=== PATIENT | male | born 1945 | race African-American/Black ===

== ENCOUNTER 2018-04-04 03:21 | Inpatient (IN) | payer OTHER ==
[2018-04-04 03:47] VITALS: BMI 27.4
--- NOTE | 2018-04-04 06:07 | PDOC ---
History of Present Illness - General Chief Complaint: Rectal Bleed Stated Complaint: RECTAL BLEED Time Seen by Provider: 04/04/18 05:34 - History of Present Illness Initial Comments: 04/04/18 07:26 The patient is a 72 year old male with a significant PMH of HTN and defibrillator who presents to the emergency department with rectal bleeding today. The patient states he was having a bowel movement this morning when he noticed gushing blood per rectum and the patient's stool was red and loose. The patient immediately went to shower after noticing the rectal bleeding. The patient was dizzy at the time but states this has since resolved. The patient also reports the ambulance told him his blood pressure was low en route to the ER. The patient endorses he has had recurrent episodes of minimal rectal bleeding in the past. The patient denies abdominal pain, chest pain, shortness of breath, headache and dizziness. Denies fever, chills, nausea, vomit, diarrhea and constipation. Denies dysuria, frequency, urgency and hematuria. Allergies: NKA Social history: No reported alcohol, drug, or cigarette use. PCP: Dr. Elizabeth Past History - Past Medical History Allergies/Adverse Reactions: Allergies Allergy/AdvReac Type Severity Reaction Status Date / Time No Known Allergies Allergy Verified 04/04/18 03:46 Home Medications: Ambulatory Orders Amlodipine Besylate 10 mg PO DAILY 04/04/18 Digoxin 125 mcg PO DAILY 04/04/18 Folic Acid 1 mg PO DAILY 04/04/18 Losartan Potassium 100 mg PO DAILY 04/04/18 Metoprolol Succinate [Toprol Xl -] 50 mg PO DAILY 04/04/18 Simvastatin 20 mg PO DAILY 04/04/18 Spironolactone 25 mg PO DAILY 04/04/18 HTN: Yes Hypercholesterolemia: Yes Thyroid Disease: No - Surgical History Cardiac Surgery: Yes (pacemaker) - Immunization History Immunization Up to Date: Yes - Suicide/Smoking/Psychosocial Hx Smoking History: Never smoked Have you smoked in the past 12 months: No Number of Cigarettes Smoked Daily: 0 Cigars Per Day: 0 Information on smoking cessation initiated: No Hx Alcohol Use: No Drug/Substance Use Hx: No *Physical Exam - Vital Signs Last Vital Signs Temp Pulse Resp BP Pulse Ox 98.1 F 92 H 16 110/60 98 04/04/18 03:44 04/04/18 03:44 04/04/18 03:44 04/04/18 03:44 04/04/18 03:44 - Physical Exam Comments: 04/04/18 07:27 NAD, well appearing EOMI, STARR MMM RRR CTABL soft NTND gait WNL neuro grossly intact A&O x 3 ED Treatment Course - LABORATORY CBC & Chemistry Diagram: 04/04/18 06:45 04/04/18 06:45 Medical Decision Making - Medical Decision Making 04/04/18 07:27 72yoM w/ hx of occasional BRBPR presents w/ a "gush" of BRBPR this morning, more than his typical. - labs - trend H/H - dispo per results. 04/04/18 07:29 Laboratory Tests 04/04/18 06:45 Hgb 8.9 L D Hct 26.8 L D prior Hgb 13 in 2014. Admit. *DC/Admit/Observation/Transfer - Discharge Dispostion Condition at time of disposition: Fair - Referrals Referrals: Thomas Elizabeth [Primary Care Provider] - - Patient Instructions - Post Discharge Activity
[2018-04-04 07:20] LABS: BASO % 0.5 % (0-2.0); EOS % 0.8 % (0-4.5); HEMATOCRIT 26.8 % (35.4-49); HEMOGLOBIN 8.9 GM/dL (11.7-16.9); LYMPH % 34.7 % (8-40); MCH 30.4 pg (25.7-33.7); MCHC 33.3 g/dl (32.0-35.9); MEAN CELL VOLUME 91.3 fl (80-96); MEAN PLT VOLUME 7.6 fl (7.5-11.1); MONO % 9.3 % (3.8-10.2); NEUT % 54.7 % (42.8-82.8); PLATELET COUNT 321 K/MM3 (134-434); RBC 2.94 M/mm3 (4.00-5.60); WHITE BLOOD COUNT 8.7 K/mm3 (4.0-10.0)
[2018-04-04 07:31] LABS: INR 1.05 (0.82-1.09); PROTHROMBIN TIME (PATIENT) 11.9 SEC (9.7-13.0)
[2018-04-04 07:34] LABS: ACTIVATED PTT 27.6 SECONDS (26.9-34.4)
[2018-04-04 07:41] LABS: ALK PHOS 61 U/L (45-117); ANION GAP 7 (8-16); BILIRUBIN,TOTAL 0.2 mg/dL (0.2-1.0); BLOOD UREA NITROGEN 27 mg/dL (7-18); CHLORIDE 111 mmol/L (98-107); CO2 21 mmol/L (21-32); CREATININE 1.5 mg/dL (0.7-1.3); GLUCOSE,RANDOM 105 mg/dL (74-106); POTASSIUM 3.9 mmol/L (3.5-5.1); SGOT/AST 42 U/L (15-37); SGPT/ALT 46 U/L (12-78); SODIUM 139 mmol/L (136-145); TOT PROT 8.7 g/dl (6.4-8.2)
--- NOTE | 2018-04-04 07:54 | PDOC ---
*Physical Exam - Vital Signs Last Vital Signs Temp Pulse Resp BP Pulse Ox 98.0 F 81 18 99/55 97 04/04/18 07:30 04/04/18 07:30 04/04/18 07:30 04/04/18 07:30 04/04/18 07:30 - Physical Exam Comments: 04/04/18 09:27 The patient is a 72 year old male with a significant PMH of HTN and defibrillator who presents to the emergency department with rectal bleeding today. GENERAL: Awake, alert, and fully oriented, in no acute distress HEAD: No signs of trauma EYES: PERRLA, EOMI, sclera anicteric, conjunctiva clear ENT: Auricles normal inspection, hearing grossly normal, nares patent, oropharynx clear without exudates. Moist mucosa NECK: Normal ROM, supple, no lymphadenopathy, JVD, or masses LUNGS: Breath sounds equal, clear to auscultation bilaterally. No wheezes, and no crackles HEART: Regular rate and rhythm, normal S1 and S2, no murmurs, rubs or gallops ABDOMEN: Soft, nontender, normoactive bowel sounds. No guarding, no rebound. No masses EXTREMITIES: Normal range of motion, no edema. No clubbing or cyanosis. No cords, erythema, or tenderness NEUROLOGICAL: Cranial nerves II through XII grossly intact. Normal speech, normal gait SKIN: Warm, Dry, normal turgor, no rashes or lesions noted. <Ramakrishna Reis - Last Filed: 04/04/18 09:27> - Vital Signs Last Vital Signs Temp Pulse Resp BP Pulse Ox 98.1 F 92 H 16 110/60 98 04/04/18 03:44 04/04/18 03:44 04/04/18 03:44 04/04/18 03:44 04/04/18 03:44 <Catherine Payton - Last Filed: 04/04/18 11:39> Heart Score/ECG Review - ECG Intrepretation Comment:: 04/04/18 09:27 sinus at 78, nl axis, nl interval, pvc, no acute st/t wave findings <Catherine Payton - Last Filed: 04/04/18 11:39> ED Treatment Course - LABORATORY CBC & Chemistry Diagram: 04/04/18 06:45 04/04/18 06:45 - ADDITIONAL ORDERS Additional order review: Laboratory Results 04/04/18 04/04/18 04/04/18 08:54 08:18 06:45 PT with INR INR PTT (Actin FS) Sodium 139 Potassium 3.9 Chloride 111 H Carbon Dioxide 21 D Anion Gap 7 L BUN 27 H D Creatinine 1.5 H D Creat Clearance w eGFR 46.00 Random Glucose 105 Calcium 8.0 L Total Bilirubin 0.2 D AST 42 H ALT 46 Alkaline Phosphatase 61 Troponin I 0.02 D Total Protein 8.7 H Albumin 2.0 L D Stool Occult Blood Positive 04/04/18 06:45 PT with INR 11.90 INR 1.05 PTT (Actin FS) 27.6 D Sodium Potassium Chloride Carbon Dioxide Anion Gap BUN Creatinine Creat Clearance w eGFR Random Glucose Calcium Total Bilirubin AST ALT Alkaline Phosphatase Troponin I Total Protein Albumin Stool Occult Blood 04/04/18 06:45 RBC 2.94 L D MCV 91.3 MCHC 33.3 RDW 14.0 MPV 7.6 D Neutrophils % 54.7 Lymphocytes % 34.7 D Monocytes % 9.3 Eosinophils % 0.8 Basophils % 0.5 <Ramakrishna Reis - Last Filed: 04/04/18 09:27> - LABORATORY CBC & Chemistry Diagram: 04/04/18 11:00 04/04/18 06:45 - ADDITIONAL ORDERS Additional order review: Laboratory Results 04/04/18 06:45 PT with INR 11.90 INR 1.05 PTT (Actin FS) 27.6 D 04/04/18 06:45 RBC 2.94 L D MCV 91.3 MCHC 33.3 RDW 14.0 MPV 7.6 D Neutrophils % 54.7 Lymphocytes % 34.7 D Monocytes % 9.3 Eosinophils % 0.8 Basophils % 0.5 <Catherine aPyton - Last Filed: 04/04/18 11:39> Medical Decision Making - Critical Care Time Total Critical Care Time (minutes): 30 Critical Care Statement: The care of this patient involved high complexity decision making to prevent further life threatening deterioration of the patient 's condition and/or to evaluate & treat vital organ system(s) failure or risk of failure. - Medical Decision Making 04/04/18 09:22 a/p: 72yo male with rectal bleeding today -pt signed out from the prior attending pending labs -pt hgb 8.9 down from 13 -7lb wt loss -night sweats -no colonoscopy in the past -concern for cause of rectal bleeding will obtain ct abd/pelvis 04/04/18 11:[address] Singer diverticular disease seen on ct renal mass on ct will place consult to surgery for mesenteric lymph nodes/GI bleed 04/04/18 11:[address] Singer who accepts pt to tele repeat hemoglobin 8.4 <Catherine Payton - Last Filed: 04/04/18 11:39> *DC/Admit/Observation/Transfer - Attestations Scribe Attestion: 04/04/18 09:28 Documentation prepared by Ramakrishna Reis, acting as medical dosimetrist for Catherine Payton DO. <Ramakrishna Reis - Last Filed: 04/04/18 09:27> - Discharge Dispostion Decision to Admit order: Yes - Attestations Physician Attestion: 04/04/18 11:37 I, Dr. Catherine Payton DO, attest that this document has been prepared under my direction and personally reviewed by me in its entirety. I further attest, that it accurately reflects all work, treatment, procedures and medical decision -making performed by me. <Catherine Payton - Last Filed: 04/04/18 11:39> Diagnosis at time of Disposition: Lower GI bleeding - Discharge Dispostion Condition at time of disposition: Fair - Referrals Referrals: Thomas Elizabeth [Primary Care Provider] - - Patient Instructions - Post Discharge Activity
[2018-04-04] MEDS ORDERED: SODIUM CHLORIDE 0.9% 1000 ML INFUS.BAG IV ONE (11:05)
[2018-04-04 11:13] LABS: BASO % 0.6 % (0-2.0); HEMATOCRIT 25.4 % (35.4-49); HEMOGLOBIN 8.4 GM/dL (11.7-16.9); LYMPH % 40.6 % (8-40); MCH 30.2 pg (25.7-33.7); MCHC 32.9 g/dl (32.0-35.9); MEAN CELL VOLUME 91.7 fl (80-96); MEAN PLT VOLUME 7.3 fl (7.5-11.1); MONO % 11.3 % (3.8-10.2); NEUT % 46.5 % (42.8-82.8); PLATELET COUNT 295 K/MM3 (134-434); RBC 2.77 M/mm3 (4.00-5.60); RDW 14.1 % (11.9-15.9); WHITE BLOOD COUNT 7.3 K/mm3 (4.0-10.0)
--- NOTE | 2018-04-04 11:30 | HP ---
CHIEF COMPLAINT: rectal bleed x1 day PCP: Dr Elizabeth Hse Specialist Dr Irby ([phone]) HISTORY OF PRESENT ILLNESS: Pt is a 72 Yo M with PMHx of HTN, HLD, Non Ischemic cardiomyopathy with CHF, s/ p defibrillator implant now presenting with rectal bleed. Pt mely about 1am overnight when he had to jones to move his bowels. He did not make it in time because he had loose stools, so ran into the shower and noted loose brown stools mixed with up to half a cup of blood. There was no associated abdominal or rectal pain. Afterwards, the pt felt dizzy, but did not syncopize. He sat down initially and rested, then went back to lay down until he felt better enough to go back to clean up the shower. Two days prior to this episode of rectal bleed, pt had noticed loose stools of up to twice a day mixed with blood in the [place]. He also had subjective fevers for which he took NSAIDS, starting 2 days early. 2 weeks prior, he had chills but did not document an objective fever. There was no associated bleeding from any other site, no nausea or vomiting, no jaundice, no hx of known liver disease, no hx of alcohol ingestion. No hematuria or dysuria. No change in diet. Is usually able to move his bowels, but had an episode of constipation about 2 weeks ago that resolved spontaneously. Pt has never had colonoscopy done, because of fear. Hx of cancer in the mother that is unclear. No recent travel or sick contacts Pt had defibrillator implanted in 02/2015 at [facility] and is not currently on antiplatelets. ER course was notable for: (1) tachycardia- 92, 86, 96 (2) Cr-1.5, hgb drop from 8.9 to 8.4 (3)CT abd w/o contrast- diverticulosis coli Recent Travel: PAST MEDICAL HISTORY: HTN, HLD, Non Ischemic cardiomyopathy with CHF PAST SURGICAL HISTORY: Xt Vr medtronic defibrillator- March 01 2015 Social History: Smoking: Never Alcohol:Denies Drugs: Denies Family History: heart dx in father () Likely cancer in mother() Heart disease in brother (had stents-) Alcoholic brother () Allergies No Known Allergies Allergy (Verified 04/04/18 03:46) HOME MEDICATIONS: Home Medications Medication Instructions Recorded Amlodipine Besylate 10 mg PO DAILY 04/04/18 Digoxin 125 mcg PO DAILY 04/04/18 Folic Acid 1 mg PO DAILY 04/04/18 Losartan Potassium 100 mg PO DAILY 04/04/18 Metoprolol Succinate [Toprol Xl -] 50 mg PO DAILY 04/04/18 Simvastatin 20 mg PO DAILY 04/04/18 Spironolactone 25 mg PO DAILY 04/04/18 REVIEW OF SYSTEMS CONSTITUTIONAL: Absent: fever+, chills+, diaphoresis, generalized weakness, malaise, loss of appetite, weight change HEENT: Absent: rhinorrhea, nasal congestion, throat pain, throat swelling, difficulty swallowing, mouth swelling, ear pain, eye pain, visual changes CARDIOVASCULAR: Absent: chest pain, syncope, palpitations, irregular heart rate, lightheadedness , peripheral edema RESPIRATORY: Absent: cough+, shortness of breath, dyspnea with exertion, orthopnea, wheezing , stridor, hemoptysis GASTROINTESTINAL: Absent: abdominal pain, abdominal distension, nausea, vomiting, diarrhea+, constipation, melena, hematochezia GENITOURINARY: Absent: dysuria, frequency, urgency, hesitancy, hematuria, flank pain, genital pain MUSCULOSKELETAL: Absent: myalgia, arthralgia, joint swelling, back pain, neck pain SKIN: Absent: rash, itching, pallor HEMATOLOGIC/IMMUNOLOGIC: Absent: easy bleeding, easy bruising, lymphadenopathy, frequent infections ENDOCRINE: Absent: unexplained weight gain, unexplained weight loss, heat intolerance, cold intolerance NEUROLOGIC: Absent: headache, focal weakness or paresthesias, dizziness, unsteady gait, seizure, mental status changes, bladder or bowel incontinence PSYCHIATRIC: Absent: anxiety, depression, suicidal or homicidal ideation, hallucinations. PHYSICAL EXAMINATION Vital Signs - 24 hr 04/04/18 04/04/18 04/04/18 03:44 07:30 11:26 Temperature 98.1 F 98.0 F Pulse Rate 92 H Pulse Rate [ 81 96 H Left Radial] Respiratory 16 18 18 Rate Blood Pressure 110/60 Blood Pressure 99/55 111/69 [Left Arm] O2 Sat by Pulse 98 97 98 Oximetry (%) GENERAL: Awake, alert, and fully oriented, in no acute painful or respiratory distress. HEAD: Normal with no signs of trauma. EYES: Pupils equal, round and reactive to light, extraocular movements intact EARS, Dry mucous membranes. LUNGS: Breath sounds equal, clear to auscultation bilaterally. No wheezes, and no crackles HEART: Irregular rhythm, S1 and S2 . ABDOMEN: Soft, nontender, not distended, normoactive bowel sounds, no guarding, no rebound, no masses. DARIANA: Pt declined MUSCULOSKELETAL: Normal range of motion at all joints. No bony deformities or tenderness. No CVA tenderness. UPPER EXTREMITIES: 2+ pulses, warm, well-perfused. LOWER EXTREMITIES: 2+ pulses, warm, well-perfused. No calf tenderness. No peripheral edema. NEUROLOGICAL: Cranial nerves II-XII intact. No facial droop, normal tone, muscle strength 5/5 globally. Normal speech. Normal gait. CBC, BMP 04/04/18 11:00 04/04/18 06:45 Laboratory Results - last 24 hr 04/04/18 04/04/18 04/04/18 06:45 06:45 06:45 WBC 8.7 RBC 2.94 L D Hgb 8.9 L D Hct 26.8 L D MCV 91.3 MCH 30.4 MCHC 33.3 RDW 14.0 Plt Count 321 D MPV 7.6 D Neutrophils % 54.7 Lymphocytes % 34.7 D Monocytes % 9.3 Eosinophils % 0.8 Basophils % 0.5 Nucleated RBC % 0 PT with INR 11.90 INR 1.05 PTT (Actin FS) 27.6 D Sodium 139 Potassium 3.9 Chloride 111 H Carbon Dioxide 21 D Anion Gap 7 L BUN 27 H D Creatinine 1.5 H D Creat Clearance w eGFR 46.00 Random Glucose 105 Calcium 8.0 L Total Bilirubin 0.2 D AST 42 H ALT 46 Alkaline Phosphatase 61 Troponin I Total Protein 8.7 H Albumin 2.0 L D Stool Occult Blood Blood Type Antibody Screen 04/04/18 04/04/18 04/04/18 08:18 08:18 08:54 WBC RBC Hgb Hct MCV MCH MCHC RDW Plt Count MPV Neutrophils % Lymphocytes % Monocytes % Eosinophils % Basophils % Nucleated RBC % PT with INR INR PTT (Actin FS) Sodium Potassium Chloride Carbon Dioxide Anion Gap BUN Creatinine Creat Clearance w eGFR Random Glucose Calcium Total Bilirubin AST ALT Alkaline Phosphatase Troponin I 0.02 D Total Protein Albumin Stool Occult Blood Positive Blood Type B POSITIVE Antibody Screen Negative 04/04/18 11:00 WBC 7.3 RBC 2.77 L Hgb 8.4 L Hct 25.4 L MCV 91.7 MCH 30.2 MCHC 32.9 RDW 14.1 Plt Count 295 MPV 7.3 L Neutrophils % 46.5 Lymphocytes % 40.6 H Monocytes % 11.3 H Eosinophils % 1.0 Basophils % 0.6 Nucleated RBC % 0 PT with INR INR PTT (Actin FS) Sodium Potassium Chloride Carbon Dioxide Anion Gap BUN Creatinine Creat Clearance w eGFR Random Glucose Calcium Total Bilirubin AST ALT Alkaline Phosphatase Troponin I Total Protein Albumin Stool Occult Blood Blood Type Antibody Screen Ambulatory Orders Amlodipine Besylate 10 mg PO DAILY 04/04/18 Digoxin 125 mcg PO DAILY 04/04/18 Folic Acid 2 mg PO DAILY 04/04/18 Furosemide 20 mg PO DAILY 04/04/18 Losartan Potassium 100 mg PO DAILY 04/04/18 Metoprolol Succinate [Toprol Xl -] 50 mg PO DAILY 04/04/18 Simvastatin 20 mg PO DAILY 04/04/18 Spironolactone 25 mg PO DAILY 04/04/18 Current Medications Chlorhexidine Gluconate (Hibiclens For Decolonization -) 1 applic TP HS FRANCISCO JAVIER Digoxin (Lanoxin -) 0.125 mg PO DAILY FRANCISCO JAVIER Dextrose/Sodium Chloride (D5-1/2ns -) 1,000 mls @ 83 mls/hr IV ASDIR FRANCISCO JAVIER Mupirocin (Bactroban Ointment (For Decolonization) -) 1 applic NS BID FRANCISCO JAVIER Stop: 04/09/18 21:59 Pantoprazole Sodium (Protonix Iv) 40 mg IVPUSH BID [facility] ASSESSMENT/PLAN: Pt is a 72 Yo M with PMHx of HTN, HLD, Non Ischemic cardiomyopathy with CHF, s/ p defibrillator implant now presenting with rectal bleed. #Rectal bleed: Likely LGI bleed due to diverticulosis, painless recurrent bleeds, NSAIDS use, CT abd - diverticulosis GI consult Surgery consult Iv fluids- recieved 1L NS in ED Cont D5/1/2 NS@83/hr iv Protonix 40mg bid May benefit from endoscopy Repeat CBC at 18.00 Two large bore iv cannular Type and screen #CONCEPCION Cr 1.5 above baseline of 1.0 in past May be prerenal due to reduced intake or increased loss with dehydration IVF Repeat BMP @1800 #Non Ischemic cardiomyopathy with CHF s/p defibrillator implant Not on antiplatelets Cont digoxin 125mcg daily Hold metoprol xl-50mg daily Hold furosemide-20mg daily Hold spironolactone- 25mg POdaily Hold amlodipine 10mg daily #HTN Hold home antihypertensives Hold amlodipine 10mg daily Hold metoprol xl-50mg daily #HLD Hold simvastatin 20mg HS #PPx: DVT- SCDS (bleeding) GI-iv Protonix 40mg bid #FEN Cont iv fluids monitor lytes and replete as needed NPO except for meds with small sips of water #Dispo: ICU Visit type - Emergency Visit Emergency Visit: Yes ED Registration Date: 04/04/18 Care time: The patient presented to the Emergency Department on the above date and was hospitalized for further evaluation of their emergent condition. - New Patient This patient is new to me today: Yes Date on this admission: 04/04/18 - Critical Care Critical Care patient: Yes Total Critical Care Time (in minutes): 38 Critical Care Statement: The care of this patient involved high complexity decision making to prevent further life threatening deterioration of the patient 's condition and/or to evaluate & treat vital organ system(s) failure or risk of failure. Hospitalist Screening - Colonoscopy Questionnaire Colonoscopy Questionnaire: Colonoscopy Questionnaire - Patient: 50 - 75 years old and never had a screening colonoscopy: Yes History of colon or rectal polyps, or CA: Unknown History of IBD, Crohn's disease or UC: Unknown History of abdominal radiation therapy as a child: Unknown - Relative: 1 with colon or rectal CA, or polyps at age 60 or younger: Unknown Colon or rectal CA diagnosed at age 45 or younger: Unknown Multiple relatives with colon or rectal CA: Unknown - Outcome: Screening Result: Positive Screen
[2018-04-04 12:40] LABS: ACANTHOCYTES 0; ANISOCYTOSIS 0; HELMET CELLS 0; HOWELL-JOLLY BODIES 0; MACROCYTOSIS 0; OVALOCYTE 0; PLATELET ESTIMATE NORMAL; ROULEAU 0; SICKELED CELLS 0; TARGET CELLS 0; TEAR DROP CELLS 0; TOXIC GRANULATION 0
[2018-04-04] MEDS ORDERED: DEXTROSE 5%-0.45% SALINE 1,000 ML IV SCH (12:45)
--- NOTE | 2018-04-04 13:20 | PN ---
Teaching Attending Note Name of Resident: Agnes Velasquez ATTENDING PHYSICIAN STATEMENT I saw and evaluated the patient. I reviewed the resident's note and discussed the case with the resident. I agree with the resident's findings and plan as documented with exceptions below. SUBJECTIVE: 72 yom with PMHx of cardiomyopathy (?Non ischemic), CHF, HTN, was in his USOH this AM, when felt was going to soil himself and had loose stools with about a cupful of Bright red blood in the shower. FOllowed by dizziness and supported himself in the bath but denies any fall, LOC or head trauma. Walked to bed to lay down when his dizziness had resolved, clean his shower and called 911. Reports small episode of BRBPR after BM, 2 days ago.No episode prior to the same. No colonoscopy in the past. Subjective fevers nightly last week and has been taking 2 advils daily for 1 week. Had some constipation the week before. No nausea, vomiting, abdominal pain , recent travel, hospitalisation or antibiotics noted. No further episodes of BRBPR or dizziness in the ED. 12 point ROS positive for 7 lb weight loss last few weeks. No orthopnea/PND or chest pain. Some exertional dyspnea with prolonged activity. OBJECTIVE: Vital Signs Period Temp Pulse Resp BP Sys/Bentley Pulse Ox Last 24 Hr 98.0 F-98.1 F 81-96 16-18 99-111/55-69 97-98 Intake & Output 04/01/18 04/02/18 04/03/18 04/04/18 23:59 23:59 23:59 23:59 Weight 186 lb GENERAL: Awake, alert, and fully oriented, in no acute distress. HEAD: Normal with no signs of trauma. EYES: Pupils equal, round and reactive to light, extraocular movements intact, sclera anicteric, conjunctiva clear. No lid lag. EARS, NOSE, THROAT: Ears normal, nares patent, oropharynx clear without exudates. Moist mucous membranes. NECK: soft, supple, no JVD LUNGS: Breath sounds equal, clear to auscultation bilaterally. No wheezes, and no crackles. No accessory muscle use. HEART:S1S2 regular ABDOMEN: Soft, nontender, not distended, normoactive bowel sounds, no guarding, no rebound, no masses. No hepatomegaly or splenomegaly appreciated, no RLQ tenderness, neg Hunt's sign. MUSCULOSKELETAL: Normal range of motion at all joints. No bony deformities or tenderness. No CVA tenderness. UPPER EXTREMITIES: 2+ pulses, warm, well-perfused. No cyanosis. No clubbing. No peripheral edema. LOWER EXTREMITIES: 2+ pulses, warm, well-perfused. No calf tenderness. No peripheral edema. NEUROLOGICAL: Cranial nerves II-XII grossly intact, normal speech PSYCHIATRIC: Cooperative. Good eye contact. Appropriate mood and affect. SKIN: Warm, dry, normal turgor, no rashes or lesions noted, normal capillary refill. Home Medication List Medication Instructions Recorded Confirmed Type Amlodipine Besylate 10 mg PO DAILY 04/04/18 04/04/18 History Digoxin 125 mcg PO DAILY 04/04/18 04/04/18 History Folic Acid 2 mg PO DAILY 04/04/18 04/04/18 History Losartan Potassium 100 mg PO DAILY 04/04/18 04/04/18 History Metoprolol Succinate [Toprol Xl -] 50 mg PO DAILY 04/04/18 04/04/18 History Simvastatin 20 mg PO DAILY 04/04/18 04/04/18 History Spironolactone 25 mg PO DAILY 04/04/18 04/04/18 History Active Medications Generic Name Dose Route Start Last Admin Trade Name Freq PRN Reason Stop Dose Admin Chlorhexidine Gluconate 1 applic 04/04/18 22:00 Hibiclens For Decolonization - TP HS FRANCISCO JAVIER Digoxin 0.125 mg 04/04/18 12:45 Lanoxin - PO DAILY [facility] Dextrose/Sodium Chloride 1,000 mls @ 83 mls/hr 04/04/18 12:45 D5-1/2ns - IV ASDIR FRANCISCO JAVIER Mupirocin 1 applic 04/04/18 22:00 Bactroban Ointment (For Decolonization) - NS 04/09/18 21:59 BID FRANCISCO JAVIER Pantoprazole Sodium 40 mg 04/04/18 22:00 Protonix Iv IVPUSH BID [facility] Laboratory Results - last 24 hr 04/04/18 04/04/18 04/04/18 06:45 06:45 06:45 WBC 8.7 RBC 2.94 L D Hgb 8.9 L D Hct 26.8 L D MCV 91.3 MCH 30.4 MCHC 33.3 RDW 14.0 Plt Count 321 D MPV 7.6 D Neutrophils % 54.7 Neutrophils % (Manual) Band Neutrophils % Lymphocytes % 34.7 D Lymphocytes % (Manual) Monocytes % 9.3 Monocytes % (Manual) Eosinophils % 0.8 Eosinophils % (Manual) Basophils % 0.5 Basophils % (Manual) Myelocytes % (Man) Promyelocytes % (Man) Blast Cells % (Manual) Nucleated RBC % 0 Metamyelocytes Hypochromia Toxic Granulation Dohle Bodies Platelet Estimate Polychromasia Poikilocytosis Basophilic Stippling Anisocytosis Microcytosis Macrocytosis Spherocytes Sickle Cells Target Cells Tear Drop Cells Ovalocytes Stomatocytes Helmet Cells Harden-Vilas Bodies [place] Rings Catherine Cells Acanthocytes (Spur) Rouleaux Fragmented RBCs Schistocytes PT with INR 11.90 INR 1.05 PTT (Actin FS) 27.6 D Sodium 139 Potassium 3.9 Chloride 111 H Carbon Dioxide 21 D Anion Gap 7 L BUN 27 H D Creatinine 1.5 H D Creat Clearance w eGFR 46.00 Random Glucose 105 Calcium 8.0 L Total Bilirubin 0.2 D AST 42 H ALT 46 Alkaline Phosphatase 61 Troponin I Total Protein 8.7 H Albumin 2.0 L D Stool Occult Blood Blood Type Antibody Screen 04/04/18 04/04/18 04/04/18 08:18 08:18 08:54 WBC RBC Hgb Hct MCV MCH MCHC RDW Plt Count MPV Neutrophils % Neutrophils % (Manual) Band Neutrophils % Lymphocytes % Lymphocytes % (Manual) Monocytes % Monocytes % (Manual) Eosinophils % Eosinophils % (Manual) Basophils % Basophils % (Manual) Myelocytes % (Man) Promyelocytes % (Man) Blast Cells % (Manual) Nucleated RBC % Metamyelocytes Hypochromia Toxic Granulation Dohle Bodies Platelet Estimate Polychromasia Poikilocytosis Basophilic Stippling Anisocytosis Microcytosis Macrocytosis Spherocytes Sickle Cells Target Cells Tear Drop Cells Ovalocytes Stomatocytes Helmet Cells Harden-Vilas Bodies [place] Rings Catherine Cells Acanthocytes (Spur) Rouleaux Fragmented RBCs Schistocytes PT with INR INR PTT (Actin FS) Sodium Potassium Chloride Carbon Dioxide Anion Gap BUN Creatinine Creat Clearance w eGFR Random Glucose Calcium Total Bilirubin AST ALT Alkaline Phosphatase Troponin I 0.02 D Total Protein Albumin Stool Occult Blood Positive Blood Type B POSITIVE Antibody Screen Negative 04/04/18 11:00 WBC 7.3 RBC 2.77 L Hgb 8.4 L Hct 25.4 L MCV 91.7 MCH 30.2 MCHC 32.9 RDW 14.1 Plt Count 295 MPV 7.3 L Neutrophils % 46.5 Neutrophils % (Manual) 56.7 Band Neutrophils % 0.0 Lymphocytes % 40.6 H Lymphocytes % (Manual) 31.9 Monocytes % 11.3 H Monocytes % (Manual) 9 Eosinophils % 1.0 Eosinophils % (Manual) 0.0 Basophils % 0.6 Basophils % (Manual) 0.0 Myelocytes % (Man) 2 Promyelocytes % (Man) 0 Blast Cells % (Manual) 0 Nucleated RBC % 0 Metamyelocytes 0 Hypochromia 0 Toxic Granulation 0 Dohle Bodies 0 Platelet Estimate Normal Polychromasia 0 Poikilocytosis 0 Basophilic Stippling 0 Anisocytosis 0 Microcytosis 0 Macrocytosis 0 Spherocytes 0 Sickle Cells 0 Target Cells 0 Tear Drop Cells 0 Ovalocytes 0 Stomatocytes 0 Helmet Cells 0 Harden-Vilas Bodies 0 [place] Rings 0 Catherine Cells 0 Acanthocytes (Spur) 0 Rouleaux 0 Fragmented RBCs 0 Schistocytes 0 PT with INR INR PTT (Actin FS) Sodium Potassium Chloride Carbon Dioxide Anion Gap BUN Creatinine Creat Clearance w eGFR Random Glucose Calcium Total Bilirubin AST ALT Alkaline Phosphatase Troponin I Total Protein Albumin Stool Occult Blood Blood Type Antibody Screen CT A/P results reviewed EKG NSR, PVC, no acute ST-T changes ASSESSMENT AND PLAN: 72 yom with PMHx of cardiomyopathy (?Non ischemic), CHF, HTN admitted with hematochezia, anemia, ARF -Hematochezia, Diverticulosis, vs malignancy vs haemorrhoids high on differential, low suspicion for Upper GI bleed, however pos NSAIDs use -CT evidence of ?Mild diverticulitis vs epiploic appendicitis, no tenderness, leucocytosis or convincing evidence of infection currently. -CONCEPCION, likely from above +/- GI bleed -HTN -HLD -Cardiomyopathy s/p ICD, ?Non ischemia -h/o CHF Plan: GI consulted with Dr. Arthur. NPO, anticipate EGD/colonoscopy. Monitor vitals closely . Protonix IV BID. h/h q6h. HOld off on antibiotics as discussed with GI. No RLQ tenderness, leucocytosis and presence of hematochezia argue against appendicitis. SUrgery consult with Dr. Oakley CLinically looks dehydrated. IVF, monitor volume status closely. 2D echo. Cardiology input to assist in management of volume status and cardiac comorbidities in the setting of GI bleed. Hold anti-hypertensives. Continue digoxin, telemetry. Dispo to ICU pending bed availability. Plan discussed with patient, ICU, GI, ED in detail, and all questions answered. Total admit time 65 min.
[2018-04-04] MEDS: DIGOXIN 0.125 MG TABLET (FP) PO SCH (14:12)
[2018-04-04 15:41] LABS: HEMOGLOBIN 7.8 GM/dL (11.7-16.9); MCH 29.7 pg (25.7-33.7); MCHC 32.5 g/dl (32.0-35.9); MEAN CELL VOLUME 91.1 fl (80-96); MEAN PLT VOLUME 7.8 fl (7.5-11.1); PLATELET COUNT 299 K/MM3 (134-434); RBC 2.63 M/mm3 (4.00-5.60); RDW 14.2 % (11.9-15.9); WHITE BLOOD COUNT 6.1 K/mm3 (4.0-10.0)
--- NOTE | 2018-04-04 16:00 | CON.CARD ---
Cardiology Consult (text) - Consultation Consultation Note: CC: NICM 72 M, HTN, HL, NICM (per prior notes may have had nl cors on [facility] although patient denies cath) S/P medtronic AICD 2014 at [facility] who p/w BRBPR. The patient states he was having a bowel movement this morning when he noticed gushing blood per rectum with assoc dizziness. Two days prior to this episode of rectal bleed, pt had noticed frequent loose stools/diarrhea mixed with blood in the flanagan. Had recently been taking nsaids for subjective fevers patient states he is active and has no limitations walking up a flight of stairs. Denies hx of cad, cva. Denies cp, sob, orthopnea, pnd, le edema, palps, claudication or transient neurologic symptoms Denies chills, sweats, n/v , cough, congestion, rash, h/a, visual disturbances. cards: Dr. Surekha KAMARA PMHx/PSHx: per hpi Social Hx: (-) Smoking (-) ETOH or substance abuse Family Hx: heart dx in father, unknown cancer in mother, CAD with stents in brother. ROS: as per HPI Ambulatory Orders Amlodipine Besylate 10 mg PO DAILY 04/04/18 Digoxin 125 mcg PO DAILY 04/04/18 Folic Acid 2 mg PO DAILY 04/04/18 Furosemide 20 mg PO DAILY 04/04/18 Losartan Potassium 100 mg PO DAILY 04/04/18 Metoprolol Succinate [Toprol Xl -] 50 mg PO DAILY 04/04/18 Simvastatin 20 mg PO DAILY 04/04/18 Spironolactone 25 mg PO DAILY 04/04/18 Current Medications Chlorhexidine Gluconate (Hibiclens For Decolonization -) 1 applic TP HS FRANCISCO JAVIER Digoxin (Lanoxin -) 0.125 mg PO DAILY [facility] Last Admin: 04/04/18 14:12 Dose: 0.125 mg Dextrose/Sodium Chloride (D5-1/2ns -) 1,000 mls @ 83 mls/hr IV ASD[facility] Last Admin: 04/04/18 14:05 Dose: 83 mls/hr Mupirocin (Bactroban Ointment (For Decolonization) -) 1 applic NS BID [facility] Stop: 04/09/18 21:59 Pantoprazole Sodium (Protonix Iv) 40 mg IVPUSH BID [facility] Vital Signs - 24 hr 04/04/18 04/04/18 04/04/18 03:44 07:30 11:26 Temperature 98.1 F 98.0 F Pulse Rate 92 H Pulse Rate [ 81 96 H Left Radial] Respiratory 16 18 18 Rate Blood Pressure 110/60 Blood Pressure 99/55 111/69 [Left Arm] O2 Sat by Pulse 98 97 98 Oximetry (%) 04/04/18 04/04/18 04/04/18 11:37 11:44 13:23 Temperature 98.5 F 98.5 F Pulse Rate 77 78 Pulse Rate [ Left Radial] Respiratory 18 18 Rate Blood Pressure 103/57 101/60 Blood Pressure [Left Arm] O2 Sat by Pulse 98 98 Oximetry (%) 04/04/18 04/04/18 04/04/18 14:12 14:23 15:23 Temperature 98.7 F 98.5 F Pulse Rate 77 77 80 Pulse Rate [ Left Radial] Respiratory 18 18 Rate Blood Pressure 110/65 112/65 Blood Pressure [Left Arm] O2 Sat by Pulse Oximetry (%) 04/04/18 15:44 Temperature Pulse Rate Pulse Rate [ Left Radial] Respiratory Rate Blood Pressure Blood Pressure [Left Arm] O2 Sat by Pulse 98 Oximetry (%) Intake & Output 04/02/18 04/03/18 04/04/18 04/05/18 07:59 07:59 07:59 07:59 Weight 186 lb 186 lb NAD, calm JVD flat, neck supple ctab, nl effort rrr nl s1, s2. no mrg + bs soft nt nd ext with trace edema, no c/c + dp/pt, no carotid bruits no jaundice, diaphoresis aaox3 CBC, BMP 04/04/18 15:10 04/04/18 06:45 Laboratory Tests 07/17/15 07/17/15 04/04/18 00:45 08:05 06:45 Hgb 13.6 8.9 L D INR Creatinine 0.8 Total Bilirubin AST ALT Alkaline Phosphatase Troponin I Albumin Stool Occult Blood 04/04/18 04/04/18 04/04/18 06:45 06:45 08:18 Hgb INR 1.05 Creatinine Total Bilirubin 0.2 D AST 42 H ALT 46 Alkaline Phosphatase 61 Troponin I 0.02 D Albumin 2.0 L D Stool Occult Blood 04/04/18 08:54 Hgb INR Creatinine Total Bilirubin AST ALT Alkaline Phosphatase Troponin I Albumin Stool Occult Blood Positive EKG: SR with pvc's, leftward axis. bline prolonged qt, Non-specific ST sagging in inferior leads. (QT interval now shorter, but otherwise similar to prior) tele: sr with pvc CT a/p: bibasilar atelectasis. hepatomegaly. right adrenal mass. obstructing kidney stone with mild left hydro. fat stranding suggestive of mild acute diverticulitis. no prior echo in system outpatient cardiac meds: toprol 50, losartan 100, aldactone 25, dig 125, lasix 20, norvasc 10, simva 20, no asa ASSESSMENT/PLAN: 72 M, HTN, HL, NICM (per prior notes may have had nl cors on [facility]) S/P medtronic AICD 2014 at [facility] who p/w BRBPR. GIB - ongoing mgm't per pmd/gi - On IVF as mentioned below. monitor volume status closely. transfusions as needed. - patient denies cv sx's. based on rcri patient has low-intermediate estimated risk of adelaida-operative cv events. No further testing needed prior to intervention. patient counseled on risk. presumed NICM s/p medtronic ICD - no prior echo available, will order. patietn states he is compliant with outpatient cards f/u and had his icd checked recently. - holding lasix/aldactone/toprol/losartan and norvasc in setting of GIB. Once bp stable, low threshold to slowly add back. Would add back toprol first. - On IVF, currently euvolemic. Ongoing monitoring of volume status. consider decreasing rate of IVF if bp stable and no ongoing bleeding. - here with possible CONCEPCION, check dig level. CONCEPCION - monitor for improvement with IVF. Also with obstructing kidney stone/mild left hydro on ct scan. HTN - meds as above HL - resume statin once stable.
--- NOTE | 2018-04-04 16:58 | CON.GI ---
Consult Consult Specialty:: GI: Dr. Velarde for Dr. Mercer Referred by:: Hospitalist Service Reason for Consultation:: Rectal bleeding - History of Present Illness Chief Complaint: Rectal bleeding History of Present Illness: 72M admitted for evaluation of rectal bleeding. He states that he had intermittent episodes throughout the week and a significant episode last night prompting his eval in the ER. He denies similar episodes in the past, describes the bleeding as red/dark red without clots. He has been taking advil regularly over the last two weeks for nightly fevers. In ER triage vitals revealed him to be afebrile P: 92 BP: 110/60. Initial Hgb was 8.9 at 6:45am and 7.8 at 3pm this afternoon. His last blood BM was last night. he denies associated abdominal pain. he has never had an upper endoscopy or colonoscopy. His mother had a cancer but he is unsure as to what kind. - History Source History Provided By: Patient, Medical Record Limitations to Obtaining History: No Limitations - Past Medical History Cardio/Vascular: Yes: HTN, Other (History of defibrilator placement. 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year[place] 1973 History of Recent Travel: No Home Medications - Allergies Allergies/Adverse Reactions: Allergies Allergy/AdvReac Type Severity Reaction Status Date / Time No Known Allergies Allergy Verified 04/04/18 03:46 - Home Medications Home Medications: Ambulatory Orders Amlodipine Besylate 10 mg PO DAILY 04/04/18 Digoxin 125 mcg PO DAILY 04/04/18 Folic Acid 2 mg PO DAILY 04/04/18 Furosemide 20 mg PO DAILY 04/04/18 Losartan Potassium 100 mg PO DAILY 04/04/18 Metoprolol Succinate [Toprol Xl -] 50 mg PO DAILY 04/04/18 Simvastatin 20 mg PO DAILY 04/04/18 Spironolactone 25 mg PO DAILY 04/04/18 Family Disease History - Family Disease History Family Disease History: Other: Father (: 70's: unclear cause), Mother ( in 70's: "cancer"), Brother (2: 1 from [place], 1 from ETOH abuse complications), Daughter (1, from lung problems, 2 healthy) Review of Systems - Review of Systems Constitutional: denies: Chills Cardiovascular: denies: Chest Pain Respiratory: denies: SOB Gastrointestinal: reports: Nausea, Rectal Bleeding. denies: Constipation, Diarrhea, Dysphagia, Indigestion, Melena, Vomiting, Vomiting Blood Physical Exam-GI Vital Signs: Vital Signs Temperature 98.5 F 04/04/18 15:23 Pulse Rate 80 04/04/18 15:23 Respiratory Rate 18 04/04/18 15:23 Blood Pressure 112/65 04/04/18 15:23 O2 Sat by Pulse Oximetry (%) 98 04/04/18 15:44 Constitutional: No: Calm Eyes: No: Sclera Icterus Cardiovascular: Yes: Regular Rate and Rhythm, Murmur (+ 2/6 DANIELA at the RSB) Respiratory: Yes: CTA Bilaterally Gastrointestinal Inspection: No: Distention, Scars ...Auscultate: Yes: Normoactive Bowel Sounds ...Palpate: No: Hepatomegaly, Splenomegaly, Tenderness ...Percussion: No: Tympanitic ...Rectal Exam: Yes: Other (No external lesions, no masses, no blood or stool in the rectal vault) Edema: No (No LE edema) Neurological: Yes: Alert, Oriented Labs: CBC, BMP 04/04/18 15:10 04/04/18 06:45 INR, PTT INR 1.05 (0.82-1.09) 04/04/18 06:45 Imaging - Results Cat Scan: Report Reviewed (RLQ subcentimeter LN's, significant tics left side of colon) Problem List - Problems (1) Lower GI bleeding Assessment/Plan: Suspected LGIB: Clinically, remains hemodynamically stable and recent CBC likely relflecting equilibration. Given ? cardiac history can give 1 U PRBC. would inquire more about his cardiac status prior to transfusion however . Monitor H/H. Repeat CBC in 8 hrs. Protonix 40mg IVPB BID for now Discussed EGD/Colonoscopy with Mr. Cazares to evaluate for source of bleeding. Discussed potential risks of the procedure like but not limited to bleeding, perforation requiring surgery to repair, infection, sedation medication effects all of which could be potentially life threatening. He has agreed to the procedures. Timing of the procedures to be determined by his clinical course. If active bleeding / change in hemodynamics, transefer to ICU and obtain surgical consultation Code(s): K92.2 - GASTROINTESTINAL HEMORRHAGE, UNSPECIFIED
[2018-04-04 19:10] LABS: ANION GAP 5 (8-16); BLOOD UREA NITROGEN 21 mg/dL (7-18); CALCIUM 7.5 mg/dL (8.5-10.1); CHLORIDE 113 mmol/L (98-107); CO2 23 mmol/L (21-32); CREATININE 1.3 mg/dL (0.7-1.3); GLUCOSE,RANDOM 171 mg/dL (74-106); POTASSIUM 3.7 mmol/L (3.5-5.1); SODIUM 141 mmol/L (136-145)
[2018-04-04 19:35] LABS: BASO % 0.8 % (0-2.0); EOS % 2.1 % (0-4.5); HEMATOCRIT 25.2 % (35.4-49); HEMOGLOBIN 8.3 GM/dL (11.7-16.9); LYMPH % 42.2 % (8-40); MCH 29.9 pg (25.7-33.7); MCHC 32.9 g/dl (32.0-35.9); MEAN CELL VOLUME 90.8 fl (80-96); MONO % 12.2 % (3.8-10.2); NEUT % 42.7 % (42.8-82.8); PLATELET COUNT 319 K/MM3 (134-434); RBC 2.77 M/mm3 (4.00-5.60); WHITE BLOOD COUNT 5.9 K/mm3 (4.0-10.0)
[2018-04-04] MEDS ORDERED: MUPIROCIN 2% TOPICAL OINTMENT FOR DECOLONIZATION NS SCH (22:00)
[2018-04-04] MEDS ORDERED: CHLORHEXIDINE GLUCONATE 4% CLEANSER FOR DECOLONIZATION TP SCH (22:00)
[2018-04-04] MEDS: PANTOPRAZOLE SODIUM 40 MG VIAL IVPUSH SCH (22:04)
[2018-04-05 08:14] LABS: HEMATOCRIT 27.3 % (35.4-49); HEMOGLOBIN 9.3 GM/dL (11.7-16.9); MCH 30.3 pg (25.7-33.7); MEAN CELL VOLUME 89.2 fl (80-96); MEAN PLT VOLUME 7.3 fl (7.5-11.1); PLATELET COUNT 304 K/MM3 (134-434); RBC 3.06 M/mm3 (4.00-5.60); RDW 14.2 % (11.9-15.9); WHITE BLOOD COUNT 6.2 K/mm3 (4.0-10.0)
[2018-04-05 09:00] LABS: CHLORIDE 114 mmol/L (98-107); POTASSIUM 3.6 mmol/L (3.5-5.1); SODIUM 141 mmol/L (136-145)
[2018-04-05 09:17] LABS: ALBUMIN 1.8 g/dl (3.4-5.0); ALK PHOS 55 U/L (45-117); ANION GAP 7 (8-16); BILIRUBIN,TOTAL 0.4 mg/dL (0.2-1.0); BLOOD UREA NITROGEN 15 mg/dL (7-18); CALCIUM 7.6 mg/dL (8.5-10.1); CO2 20 mmol/L (21-32); CREATININE 1.2 mg/dL (0.7-1.3); GLUCOSE,RANDOM 96 mg/dL (74-106); PHOSPHOROUS 2.8 mg/dL (2.5-4.9); SGOT/AST 28 U/L (15-37); SGPT/ALT 33 U/L (12-78); TOT PROT 8.1 g/dl (6.4-8.2)
[2018-04-05] MEDS: DIGOXIN 0.125 MG TABLET (FP) PO SCH (09:42)
[2018-04-05] MEDS: PANTOPRAZOLE SODIUM 40 MG VIAL IVPUSH SCH (09:42)
--- NOTE | 2018-04-05 10:07 | EKG ---
Test Reason : Blood Pressure : / mmHG Vent. Rate : 078 BPM Atrial Rate : 078 BPM P-R Int : 152 ms QRS Dur : 094 ms QT Int : 424 ms P-R-T Axes : 043 -25 060 degrees QTc Int : 483 ms SINUS RHYTHM WITH OCCASIONAL PREMATURE VENTRICULAR COMPLEXES NONSPECIFIC ST ABNORMALITY PROLONGED QT ABNORMAL ECG WHEN COMPARED WITH ECG OF 17-JUL-2015 09:20, QT HAS SHORTENED Confirmed by BISHNU ROSE, JALEN ([id number]) on 04/05/2018 10:06:41 AM Referred By: Confirmed By:JALEN GOETZ MD
--- NOTE | 2018-04-05 10:23 | PN ---
Progress Note (short form) - Note Progress Note: No acute events. He received 1 U PRBC and no bleeding was reported. Mr. Cazares stated that he must leave Friday. I explained that while he may be able to go home after procedures if they were performed tomorrow, I could not guarantee that he would be able to leave on ( depending on what was found, how he tolerated procedures, if there was rebleeding, etc...) He said that he understood that if he left now he could rebleed and the source of his bleeding would remain unclear. He is aware that significant rectal bleeding can be life threatening. He explained that "he was willing to take that risk and sign out AMA today". Problem List - Problems (1) Lower GI bleeding Code(s): K92.2 - GASTROINTESTINAL HEMORRHAGE, UNSPECIFIED
--- NOTE | 2018-04-05 11:17 | PN ---
Progress Note (short form) - Note Progress Note: Patient seen and examined. No further BM or blood in stools. No dizziness, dyspnea, chest pain,. Denies any prior urinary symptoms, back or abdominal pain or h/o kidney stones. Objective: Vital Signs Period Temp Pulse Resp BP Sys/Bentley Pulse Ox Last 24 Hr 97.2 F-98.7 F 76-96 18-20 101-136/57-76 98-98 Intake & Output 04/02/18 04/03/18 04/04/18 04/05/18 23:59 23:59 23:59 23:59 Intake Total 575.5 385 Balance 575.5 385 Weight 186 lb 180 lb 7 oz General: sitting in bed, having breakfast Abdomen:soft, NT, ND, positive bowel sounds, no suprapubic or CVS tenderness noted. extremities: no edema Chest: Few right basilar rales, good air entry bilaterally Home Medication List Medication Instructions Recorded Confirmed Type Amlodipine Besylate 10 mg PO DAILY 04/04/18 04/04/18 History Digoxin 125 mcg PO DAILY 04/04/18 04/04/18 History Folic Acid 2 mg PO DAILY 04/04/18 04/04/18 History Furosemide 20 mg PO DAILY 04/04/18 04/04/18 History Losartan Potassium 100 mg PO DAILY 04/04/18 04/04/18 History Metoprolol Succinate [Toprol Xl -] 50 mg PO DAILY 04/04/18 04/04/18 History Simvastatin 20 mg PO DAILY 04/04/18 04/04/18 History Spironolactone 25 mg PO DAILY 04/04/18 04/04/18 History Active Medications Generic Name Dose Route Start Last Admin Trade Name Freq PRN Reason Stop Dose Admin Digoxin 0.125 mg 04/04/18 12:45 04/05/18 09:42 Lanoxin - PO 0.125 mg DAILY FRANCISCO JAVIER Administration Dextrose/Sodium Chloride 1,000 mls @ 83 mls/hr 04/04/18 12:45 04/04/18 14:05 D5-1/2ns - IV 83 mls/hr ASDIR FRANCISCO JAVIER Administration Pantoprazole Sodium 40 mg 04/04/18 22:00 04/05/18 09:42 Protonix Iv IVPUSH 40 mg BID FRANCISCO JAVIER Administration Laboratory Results - last 24 hr 04/04/18 04/04/18 04/04/18 08:18 11:00 15:10 WBC 6.1 RBC 2.63 L Hgb 7.8 L Hct 24.0 L MCV 91.1 MCH 29.7 MCHC 32.5 RDW 14.2 Plt Count 299 MPV 7.8 Neutrophils % Neutrophils % (Manual) 56.7 Band Neutrophils % 0.0 Lymphocytes % Lymphocytes % (Manual) 31.9 Monocytes % Monocytes % (Manual) 9 Eosinophils % Eosinophils % (Manual) 0.0 Basophils % Basophils % (Manual) 0.0 Myelocytes % (Man) 2 Promyelocytes % (Man) 0 Blast Cells % (Manual) 0 Nucleated RBC % 0 Metamyelocytes 0 Hypochromia 0 Toxic Granulation 0 Dohle Bodies 0 Platelet Estimate Normal Polychromasia 0 Poikilocytosis 0 Basophilic Stippling 0 Anisocytosis 0 Microcytosis 0 Macrocytosis 0 Spherocytes 0 Sickle Cells 0 Target Cells 0 Tear Drop Cells 0 Ovalocytes 0 Stomatocytes 0 Helmet Cells 0 [place] Bodies 0 [place] Rings 0 Catherine Cells 0 Acanthocytes (Spur) 0 Rouleaux 0 Fragmented RBCs 0 Schistocytes 0 Sodium Potassium Chloride Carbon Dioxide Anion Gap BUN Creatinine Creat Clearance w eGFR Random Glucose Calcium Phosphorus Magnesium Total Bilirubin AST ALT Alkaline Phosphatase Creatine Kinase Troponin I Total Protein Albumin Digoxin Blood Type B POSITIVE Antibody Screen Negative Crossmatch See Detail 04/04/18 04/04/18 04/04/18 18:00 18:00 18:00 WBC 5.9 RBC 2.77 L Hgb 8.3 L Hct 25.2 L MCV 90.8 MCH 29.9 MCHC 32.9 RDW 14.0 Plt Count 319 MPV 8.0 Neutrophils % 42.7 L Neutrophils % (Manual) Band Neutrophils % Lymphocytes % 42.2 H Lymphocytes % (Manual) Monocytes % 12.2 H Monocytes % (Manual) Eosinophils % 2.1 D Eosinophils % (Manual) Basophils % 0.8 Basophils % (Manual) Myelocytes % (Man) Promyelocytes % (Man) Blast Cells % (Manual) Nucleated RBC % 0 Metamyelocytes Hypochromia Toxic Granulation Dohle Bodies Platelet Estimate Polychromasia Poikilocytosis Basophilic Stippling Anisocytosis Microcytosis Macrocytosis Spherocytes Sickle Cells Target Cells Tear Drop Cells Ovalocytes Stomatocytes Helmet Cells [place] Bodies [place] Rings [place] Cells Acanthocytes (Spur) Rouleaux Fragmented RBCs Schistocytes Sodium 141 Potassium 3.7 Chloride 113 H Carbon Dioxide 23 Anion Gap 5 L BUN 21 H D Creatinine 1.3 Creat Clearance w eGFR Random Glucose 171 H D Calcium 7.5 L Phosphorus Magnesium 2.0 Total Bilirubin AST ALT Alkaline Phosphatase Creatine Kinase Troponin I Total Protein Albumin Digoxin 0.3624 L Blood Type Antibody Screen Crossmatch 04/04/18 04/04/18 04/05/18 18:00 18:00 07:53 WBC 6.2 RBC 3.06 L Hgb 9.3 L D Hct 27.3 L MCV 89.2 MCH 30.3 MCHC 34.0 RDW 14.2 Plt Count 304 MPV 7.3 L Neutrophils % Neutrophils % (Manual) Band Neutrophils % Lymphocytes % Lymphocytes % (Manual) Monocytes % Monocytes % (Manual) Eosinophils % Eosinophils % (Manual) Basophils % Basophils % (Manual) Myelocytes % (Man) Promyelocytes % (Man) Blast Cells % (Manual) Nucleated RBC % Metamyelocytes Hypochromia Toxic Granulation Dohle Bodies Platelet Estimate Polychromasia Poikilocytosis Basophilic Stippling Anisocytosis Microcytosis Macrocytosis Spherocytes Sickle Cells Target Cells Tear Drop Cells Ovalocytes Stomatocytes Helmet Cells [place] Bodies [place] Rings [place] Cells Acanthocytes (Spur) Rouleaux Fragmented RBCs Schistocytes Sodium Potassium Chloride Carbon Dioxide Anion Gap BUN Creatinine Creat Clearance w eGFR Random Glucose Calcium Phosphorus Magnesium Total Bilirubin AST ALT Alkaline Phosphatase Creatine Kinase 60 Troponin I 0.02 Total Protein Albumin Digoxin Blood Type B POSITIVE Antibody Screen Negative Crossmatch 04/05/18 07:53 WBC RBC Hgb Hct MCV MCH MCHC RDW Plt Count MPV Neutrophils % Neutrophils % (Manual) Band Neutrophils % Lymphocytes % Lymphocytes % (Manual) Monocytes % Monocytes % (Manual) Eosinophils % Eosinophils % (Manual) Basophils % Basophils % (Manual) Myelocytes % (Man) Promyelocytes % (Man) Blast Cells % (Manual) Nucleated RBC % Metamyelocytes Hypochromia Toxic Granulation Dohle Bodies Platelet Estimate Polychromasia Poikilocytosis Basophilic Stippling Anisocytosis Microcytosis Macrocytosis Spherocytes Sickle Cells Target Cells Tear Drop Cells Ovalocytes Stomatocytes Helmet Cells [place] Bodies [place] Rings [place] Cells Acanthocytes (Spur) Rouleaux Fragmented RBCs Schistocytes Sodium 141 Potassium 3.6 Chloride 114 H Carbon Dioxide 20 L Anion Gap 7 L BUN 15 D Creatinine 1.2 Creat Clearance w eGFR 59.51 Random Glucose 96 D Calcium 7.6 L Phosphorus 2.8 Magnesium 2.0 Total Bilirubin 0.4 D AST 28 D ALT 33 D Alkaline Phosphatase 55 Creatine Kinase Troponin I Total Protein 8.1 Albumin 1.8 L Digoxin Blood Type Antibody Screen Crossmatch Telemetry with no concerning events. Assessment/Plan: 72 yom with PMHx of cardiomyopathy (?Non ischemic), CHF, HTN admitted with hematochezia, anemia, ARF -Hematochezia, Diverticulosis, vs malignancy vs haemorrhoids high on differential, low suspicion for Upper GI bleed, however pos NSAIDs use -CT evidence of ?Mild diverticulitis vs epiploic appendicitis, no tenderness, leucocytosis or convincing evidence of infection currently. -CONCEPCION, likely from above +/- GI bleed -HTN -HLD -Cardiomyopathy s/p ICD, ?Non ischemia -h/o CHF -Right adrenal mass -Nephrolithiasis with 1 cm left ureteral stone with mild hydronephrosis Plan: No further events of bleed, s/p 1 unit pRBC, repeat h/h later today. EGD/colonoscopy in 24-48 hours per GI if patient agreable. Monitor vitals closely . Clears diet, d/c IVF. Protonix IV BID. HOld off on antibiotics, No RLQ tenderness, leucocytosis and presence of hematochezia argue against appendicitis. SUrgery consult with Dr. Oakley Cardiology input noted. Check 2D echo. Continue digoxin. Resume toprol XL. Hold aldactone and amlodipine for now. Resume folic acid. Patient wants outpatient follow up for right adrenal mass. Urology input but patient asymptomatic, renal function improved and has active GI bleed concerns going on, will continue to monitor. FIndings of right adrenal mass and need for MRI to discern further and also left kidney stone 1cm with mild hydronephrosis have been discussed in detail with patient, wants to pursue outpatient and wants GI bleed addressed currently. ALso unwilling to stay longer if needed. Risks of leaving including ongoing GI bleed, worsening renal function, possible underlying mass that may need intervention, shock and have been relayed to the patient. Also patient's anti-hypertensives are on hold and would be unable to advise on resumption of the medications and would be at high risk of low BP, dizziness, shock and if continued with ongoing undiagnosed bleed. Patient relays full understanding of the risks of leaving. Plan discussed with Dr. Orozco and nursing in detail. Visit type - Emergency Visit Emergency Visit: No - New Patient This patient is new to me today: No - Critical Care Critical Care patient: No - Discharge Referral Referred to [facility] Med [facility] No
[2018-04-05] MEDS ORDERED: FOLIC ACID 1 MG TABLET (FP) PO SCH (11:30)
--- NOTE | 2018-04-05 11:53 | PN ---
Progress Note (short form) - Note Progress Note: surgery 72m with cardiomyopathy and AICD admitted for nonlocalized gi bleed requiring 1uprbc. Pt felt to currently not be bleeding. No endoscopy has been done. Pt hemodynamically stable. If source of bleed localized, and if pt rebleeds and GI and IR methods exhausted to stop bleed, will be available to operate if pt a candidate for surgery at a [facility] without cardiac ICU and labor relations manager.
--- NOTE | 2018-04-05 12:07 | DS ---
Physical Exam: SUBJECTIVE: Patient seen and examined, no further bleed overnight, no new dizziness OBJECTIVE: Vital Signs Period Temp Pulse Resp BP Sys/Bentley Pulse Ox Last 24 Hr 97.2 F-98.7 F 76-90 18-20 101-136/60-76 98-98 PHYSICAL EXAM General: sitting in bed, having breakfast Abdomen:soft, NT, ND, positive bowel sounds, no suprapubic or CVS tenderness noted. extremities: no edema Chest: Few right basilar rales, good air entry bilaterally LABS Laboratory Results - last 24 hr 04/04/18 04/04/18 04/04/18 08:18 11:00 15:10 WBC 6.1 RBC 2.63 L Hgb 7.8 L Hct 24.0 L MCV 91.1 MCH 29.7 MCHC 32.5 RDW 14.2 Plt Count 299 MPV 7.8 Neutrophils % Neutrophils % (Manual) 56.7 Band Neutrophils % 0.0 Lymphocytes % Lymphocytes % (Manual) 31.9 Monocytes % Monocytes % (Manual) 9 Eosinophils % Eosinophils % (Manual) 0.0 Basophils % Basophils % (Manual) 0.0 Myelocytes % (Man) 2 Promyelocytes % (Man) 0 Blast Cells % (Manual) 0 Nucleated RBC % 0 Metamyelocytes 0 Hypochromia 0 Toxic Granulation 0 Dohle Bodies 0 Platelet Estimate Normal Polychromasia 0 Poikilocytosis 0 Basophilic Stippling 0 Anisocytosis 0 Microcytosis 0 Macrocytosis 0 Spherocytes 0 Sickle Cells 0 Target Cells 0 Tear Drop Cells 0 Ovalocytes 0 Stomatocytes 0 Helmet Cells 0 [place] Bodies 0 [place] Rings 0 Catherine Cells 0 Acanthocytes (Spur) 0 Rouleaux 0 Fragmented RBCs 0 Schistocytes 0 Sodium Potassium Chloride Carbon Dioxide Anion Gap BUN Creatinine Creat Clearance w eGFR Random Glucose Calcium Phosphorus Magnesium Total Bilirubin AST ALT Alkaline Phosphatase Creatine Kinase Troponin I Total Protein Albumin Digoxin Blood Type B POSITIVE Antibody Screen Negative Crossmatch See Detail 04/04/18 04/04/18 04/04/18 18:00 18:00 18:00 WBC 5.9 RBC 2.77 L Hgb 8.3 L Hct 25.2 L MCV 90.8 MCH 29.9 MCHC 32.9 RDW 14.0 Plt Count 319 MPV 8.0 Neutrophils % 42.7 L Neutrophils % (Manual) Band Neutrophils % Lymphocytes % 42.2 H Lymphocytes % (Manual) Monocytes % 12.2 H Monocytes % (Manual) Eosinophils % 2.1 D Eosinophils % (Manual) Basophils % 0.8 Basophils % (Manual) Myelocytes % (Man) Promyelocytes % (Man) Blast Cells % (Manual) Nucleated RBC % 0 Metamyelocytes Hypochromia Toxic Granulation Dohle Bodies Platelet Estimate Polychromasia Poikilocytosis Basophilic Stippling Anisocytosis Microcytosis Macrocytosis Spherocytes Sickle Cells Target Cells Tear Drop Cells Ovalocytes Stomatocytes Helmet Cells [place] Bodies [place] Rings [place] Cells Acanthocytes (Spur) Rouleaux Fragmented RBCs Schistocytes Sodium 141 Potassium 3.7 Chloride 113 H Carbon Dioxide 23 Anion Gap 5 L BUN 21 H D Creatinine 1.3 Creat Clearance w eGFR Random Glucose 171 H D Calcium 7.5 L Phosphorus Magnesium 2.0 Total Bilirubin AST ALT Alkaline Phosphatase Creatine Kinase Troponin I Total Protein Albumin Digoxin 0.3624 L Blood Type Antibody Screen Crossmatch 04/04/18 04/04/18 04/05/18 18:00 18:00 07:53 WBC 6.2 RBC 3.06 L Hgb 9.3 L D Hct 27.3 L MCV 89.2 MCH 30.3 MCHC 34.0 RDW 14.2 Plt Count 304 MPV 7.3 L Neutrophils % Neutrophils % (Manual) Band Neutrophils % Lymphocytes % Lymphocytes % (Manual) Monocytes % Monocytes % (Manual) Eosinophils % Eosinophils % (Manual) Basophils % Basophils % (Manual) Myelocytes % (Man) Promyelocytes % (Man) Blast Cells % (Manual) Nucleated RBC % Metamyelocytes Hypochromia Toxic Granulation Dohle Bodies Platelet Estimate Polychromasia Poikilocytosis Basophilic Stippling Anisocytosis Microcytosis Macrocytosis Spherocytes Sickle Cells Target Cells Tear Drop Cells Ovalocytes Stomatocytes Helmet Cells [place] Bodies [place] Rings [place] Cells Acanthocytes (Spur) Rouleaux Fragmented RBCs Schistocytes Sodium Potassium Chloride Carbon Dioxide Anion Gap BUN Creatinine Creat Clearance w eGFR Random Glucose Calcium Phosphorus Magnesium Total Bilirubin AST ALT Alkaline Phosphatase Creatine Kinase 60 Troponin I 0.02 Total Protein Albumin Digoxin Blood Type B POSITIVE Antibody Screen Negative Crossmatch 04/05/18 07:53 WBC RBC Hgb Hct MCV MCH MCHC RDW Plt Count MPV Neutrophils % Neutrophils % (Manual) Band Neutrophils % Lymphocytes % Lymphocytes % (Manual) Monocytes % Monocytes % (Manual) Eosinophils % Eosinophils % (Manual) Basophils % Basophils % (Manual) Myelocytes % (Man) Promyelocytes % (Man) Blast Cells % (Manual) Nucleated RBC % Metamyelocytes Hypochromia Toxic Granulation Dohle Bodies Platelet Estimate Polychromasia Poikilocytosis Basophilic Stippling Anisocytosis Microcytosis Macrocytosis Spherocytes Sickle Cells Target Cells Tear Drop Cells Ovalocytes Stomatocytes Helmet Cells [place] Bodies [place] Rings [place] Cells Acanthocytes (Spur) Rouleaux Fragmented RBCs Schistocytes Sodium 141 Potassium 3.6 Chloride 114 H Carbon Dioxide 20 L Anion Gap 7 L BUN 15 D Creatinine 1.2 Creat Clearance w eGFR 59.51 Random Glucose 96 D Calcium 7.6 L Phosphorus 2.8 Magnesium 2.0 Total Bilirubin 0.4 D AST 28 D ALT 33 D Alkaline Phosphatase 55 Creatine Kinase Troponin I Total Protein 8.1 Albumin 1.8 L Digoxin Blood Type Antibody Screen Crossmatch CT A/P: No prior is available for comparison. There are mild bibasal atelectatic changes. The heart appears to be slightly enlarged. The dome of the right hemidiaphragm and superior aspect of the right hepatic lobe were not included on this exam. The liver is enlarged measuring 20 cm in craniocaudal length. The spleen, pancreas and gallbladder appear unremarkable. There is nodular thickening of the left adrenal gland measuring 1.3 cm. There is an approximately 3.6 x 2.3 x 4 cm right adrenal mass. Both kidneys are within normal limits in size with a 4 mm nonobstructing left renal lower pole stone, a tiny hyperdense cyst in its midportion measuring 1.3 cm and a focal low attenuation density in its lower pole measuring 1.4 cm that may represent a cyst. 1 cm obstructing stone in the proximal left ureter with mild left renal hydronephrosis. The right kidney is within normal limits in size with a tiny cortical calcific density in its midportion anteriorly laterally measuring 3. The stomach is partially distended and hence its wall cannot be evaluated on this examination. There is suggestion of a small hiatus hernia. Tiny fat- containing umbilical hernia. There is no evidence of small bowel obstruction. Normal-appearing terminal ileum and appendix. Multiple subcentimeter mesenteric lymph nodes in the right lower quadrant which are nonspecific and may be on the basis of mesenteric adenitis. There is normal stool burden in the colon. Multiple diverticula in the splenic flexure, descending and sigmoid colon. There is stranding of the surrounding fat in the mid descending colon suggestive of mild acute diverticulitis. Differential diagnosis also includes hypoechoic appendicitis. There are subcentimeter mesenteric lymph nodes also seen in the left flank and lower abdomen. Partially distended urinary bladder without wall thickening. Slightly prominent prostate gland with benign appearing calcifications. Moderate-sized fat-containing right inguinal hernia. Perirectal and pericecal fat are clear Visualized osseous structures appear intact with mild degenerative disc disease at L4-L5 level, mainly posteriorly IMPRESSION: Lack of oral and intravenous contrast are limiting this exam Mild cardiomegaly. Hepatomegaly. Likely small hiatus hernia. Right adrenal mass measuring 4 cm in maximum dimension for which correlation with MRI is needed to evaluate for adrenal adenoma versus neoplasm. Nonobstructing left renal stone, a small hyperdense cyst and likely a small cyst in its mid to lower portion. 1 cm stone in the proximal left ureter with mild left renal hydronephrosis. There is no evidence of small bowel obstruction. In adequate distention of the colon limiting its evaluation. Diverticulosis coli, as described above with suggestion of mild diverticulitis versus epiploic appendicitis in the mid descending colon. No extraluminal air or abscess formation is identified. Multiple subcentimeter and almost borderline mesenteric lymph nodes in the right lower quadrant as well as in the left mid and lower abdomen that may be on the basis of mesenteric adenitis. Tiny fat-containing umbilical hernia. Abdomen US: Upper abdomen ultrasound. The liver is within normal limits in size with homogeneous echotexture. The gallbladder is adequately distended without intraluminal stones or thickening of its wall. No intra or extrahepatic bile duct dilatation is seen. The right and left kidney measured 12.3 and 12.5 cm , respectively. 1.8 cm simple cyst in the mid to lower portion of the left kidney. Both kidneys appear otherwise unremarkable. The spleen measures 9 cm in sagittal length with homogeneous echotexture. Visualized portion of the pancreas appears unremarkable. Visualized portion of the proximal abdominal aorta and inferior vena cava are patent. Normal flow in the main portal vein. IMPRESSION: 1.8 cm left renal simple cyst. Both kidneys appear otherwise unremarkable. Normal size liver with homogeneous echotexture. No gallstones identified. Visualized portion of the pancreas appears grossly unremarkable. Correlate clinically to determine further evaluation and follow-up. HOSPITAL COURSE: Date of Admission:04/04/18 Date of Discharge: 04/05/18 Minutes to complete discharge: 45 Discharge Summary Reason For Visit: LOWER GI HEMORRHAGE Hospital Course: Please note that patient left against medical advice. Patient had no further episodes of bleeding or dizziness. He received one unit of PRBC with follow up Hemoglobin 9.3. Gastroenterology was consulted and plan was for EGD and colonscopy. Also his home antihypertensives were held and he was placed on gentle hydration. Cardiology was consulted and planned for 2D echo and close monitoring of his volume status. Patient had question for mild diverticulitis vs epiploic appendicitis but he had no fevers, leucocytosis or abdominal symptoms or signs on exam, he was evaluated by gastroenterology and surgery and monitored off antibiotics. However patient expressed wish to leave AMA as did not want to wait for EGD and colonoscopy. Risks of leaving were explained in detail, patient relayed full understanding of the risks and also that we are unable to advise on resumption of his aldactone and ant-hypertensives at this stage. Also findings for right adrenal mass and need for MRI to determine if malignant and left 1 cm ureteral stone with mild hydronephrosis and need for urology input and monitoring of his kidney function have been discussed in detail with that patient. Condition: Fair - Instructions Referrals: Froylan Velarde DO [Staff Physician] - Thomas Elizabeth [Primary Care Provider] - Disposition: AGAINST MEDICAL ADVICE - Home Medications Comprehensive Discharge Medication List: Ambulatory Orders Amlodipine Besylate 10 mg PO DAILY 04/04/18 Digoxin 125 mcg PO DAILY 04/04/18 Folic Acid 2 mg PO DAILY 04/04/18 Furosemide 20 mg PO DAILY 04/04/18 Losartan Potassium 100 mg PO DAILY 04/04/18 Metoprolol Succinate [Toprol Xl -] 50 mg PO DAILY 04/04/18 Simvastatin 20 mg PO DAILY 04/04/18 Spironolactone 25 mg PO DAILY 04/04/18 This patient is new to me today: No Emergency Visit: No Critical Care patient: No - Discharge Referral Referred to [facility] Med [facility] No
[2018-04-05 12:23] VITALS: BP 122/74; PULSE 80; TEMP 98
[2018-04-09 00:06] LABS: HEP.C VIRUS AB 0.3 s/co ratio (0.0-0.9)
== END 2018-04-05 11:56 | disposition left against medical advice (07) | DRG 378 ==
LOC: JER 03:21 → JERBED 11:37 → J4S 13:30
PROVIDERS: ADMIT Hospitalist; ATTEND Hospitalist
PROC: 30233N1 Transfusion of Nonautologous Red Blood Cells into Peripheral Vein, Percutaneous Approach (ICD-10-PCS; principal; 2018-04-04)
DX: K92.2 Gastrointestinal hemorrhage, unspecified (principal); N17.9 Acute kidney failure, unspecified; I42.9 Cardiomyopathy, unspecified; N13.2 Hydronephrosis with renal and ureteral calculous obstruction; J98.11 Atelectasis; E78.5 Hyperlipidemia, unspecified; D64.9 Anemia, unspecified; I11.0 Hypertensive heart disease with heart failure; I50.9 Heart failure, unspecified
CPT/HCPCS: 36415; 36430; 71046-TC-FY; 74176-TC; 76700-TC; 80048; 80053; 80074; 80162; 82272; 82550; 83735; 84100; 84484; 85025; 85027; 85610; 85730; 86850; 86900; 86901; 86922; 93005; 93010; 99285-25; P9038; P9058

== ENCOUNTER 2018-04-11 19:59 | Inpatient (IN) | payer OTHER ==
--- NOTE | 2018-04-11 20:18 | PDOC ---
History of Present Illness - General History Source: Patient, Family (Daughter.) Exam Limitations: No Limitations - History of Present Illness Initial Comments: 04/11/18 20:54 The patient is a 72 year old male, with a significant past medical history of HTN and defibrillator, who presents to the emergency department via EMS with, rectal bleeding and one episode of lightheadedness. The patient reports 4 bowel movements tonight and only one with associated blood. He reports feeling lightheaded after the bowel movement. As per patients daughter, the toilet seat and in the bowl had a significant amount of blood. She reports he has lost weight since his last admission one week ago. He was admitted a week ago for rectal bleeding. He denies taking his Digoxin today. The patient reports feeling well now. He denies any recent fevers, chills, or headache. He denies any recent nausea, vomit, or constipation. He denies any recent chest pain or shortness of breath. He denies any recent dysuria, frequency, urgency or hematuria. Allergies: NKA Social History: Nonsmoker. Denies EtOH use and recreational drug use. Primary Care Physician: Dr. Elizabeth <Zhang Levine - Last Filed: 04/12/18 00:43> <Marlys Sims - Last Filed: 04/12/18 23:11> - General Chief Complaint: Syncope/Near Syncope Stated Complaint: SYNCOPE Time Seen by Provider: 04/11/18 20:16 Past History <Zhang Levine - Last Filed: 04/12/18 00:43> - Past Medical History Anemia: No Asthma: No Cancer: No Cardiac Disorders: No CVA: No COPD: No CHF: No Dementia: No Diabetes: No GI Disorders: No Disorders: No HTN: Yes Hypercholesterolemia: Yes Liver Disease: No Seizures: No Thyroid Disease: No - Surgical History Abdominal Surgery: No Appendectomy: No Cardiac Surgery: Yes (pacemaker) Cholecystectomy: No Lung Surgery: No Neurologic Surgery: No Orthopedic Surgery: No - Immunization History Immunization Up to Date: Yes - Suicide/Smoking/Psychosocial Hx Smoking History: Never smoked Have you smoked in the past 12 months: No Number of Cigarettes Smoked Daily: 0 Cigars Per Day: 0 Information on smoking cessation initiated: No Hx Alcohol Use: No Drug/Substance Use Hx: No Substance Use Type: None Hx Substance Use Treatment: No <Marlys Sims - Last Filed: 04/12/18 23:11> - Past Medical History Allergies/Adverse Reactions: Allergies Allergy/AdvReac Type Severity Reaction Status Date / Time No Known Allergies Allergy Verified 04/11/18 20:13 Home Medications: Ambulatory Orders Amlodipine Besylate 10 mg PO DAILY 04/04/18 Digoxin 125 mcg PO DAILY 04/04/18 Folic Acid 2 mg PO DAILY 04/04/18 Furosemide 20 mg PO DAILY 04/04/18 Losartan Potassium 100 mg PO DAILY 04/04/18 Metoprolol Succinate [Toprol Xl -] 50 mg PO DAILY 04/04/18 Simvastatin 20 mg PO DAILY 04/04/18 Spironolactone 25 mg PO DAILY 04/04/18 Review of Systems - Review of Systems Able to Perform ROS?: Yes Comments:: 04/11/18 20:54 GENERAL/CONSTITUTIONAL: No fever or chills. No weakness. HEAD, EYES, EARS, NOSE AND THROAT: No change in vision. No ear pain or discharge. No sore throat. CARDIOVASCULAR: No chest pain or shortness of breath. RESPIRATORY: No cough, wheezing, or hemoptysis. GASTROINTESTINAL: Rectal bleeding. No nausea, vomiting, or constipation. GENITOURINARY: No dysuria, frequency, or change in urination. MUSCULOSKELETAL: No joint or muscle swelling or pain. No neck or back pain. SKIN: No rash +NEUROLOGIC: Lightheadedness. No headache, vertigo, loss of consciousness, or change in strength/sensation. ENDOCRINE: No increased thirst. No abnormal weight change. HEMATOLOGIC/LYMPHATIC: No anemia, easy bleeding, or history of blood clots. ALLERGIC/IMMUNOLOGIC: No hives or skin allergy. All Other Systems: Reviewed and Negative <Zhang Levine - Last Filed: 04/12/18 00:43> *Physical Exam - Vital Signs Last Vital Signs Temp Pulse Resp BP Pulse Ox 100 F H 95 H 18 113/51 96 04/11/18 20:04 04/11/18 20:04 04/11/18 20:04 04/11/18 20:04 04/11/18 20:04 - Physical Exam Comments: 04/11/18 23:17 +GENERAL: Temporal wasting. Weight loss in the face. Awake, alert, and fully oriented, in no acute distress HEAD: No signs of trauma EYES: PERRLA, EOMI, sclera anicteric, conjunctiva clear ENT: Auricles normal inspection, hearing grossly normal, nares patent, oropharynx clear without exudates. Moist mucosa NECK: Normal ROM, supple, no lymphadenopathy, JVD, or masses +LUNGS: Breathing heavily. Low pulse oxygen. Breath sounds equal, clear to auscultation bilaterally. No wheezes, and no crackles HEART: Regular rate and rhythm, normal S1 and S2, no murmurs, rubs or gallops ABDOMEN: Soft, nontender, normoactive bowel sounds. No guarding, no rebound. No masses EXTREMITIES: Normal range of motion, no edema. No clubbing or cyanosis. No cords, erythema, or tenderness +NEUROLOGICAL: Equal but weak throughout. Cranial nerves II through XII grossly intact. SKIN: Warm, Dry, normal turgor, no rashes or lesions noted. <Zhang Levine - Last Filed: 04/12/18 00:43> - Vital Signs Last Vital Signs Temp Pulse Resp BP Pulse Ox 100 F H 95 H 18 113/51 96 04/11/18 20:04 04/11/18 20:04 04/11/18 20:04 04/11/18 20:04 04/11/18 20:04 <Marlys Sims - Last Filed: 04/12/18 23:11> ED Treatment Course - LABORATORY CBC & Chemistry Diagram: 04/11/18 20:40 04/11/18 20:40 <Zhang Levine - Last Filed: 04/12/18 00:43> - LABORATORY CBC & Chemistry Diagram: 04/12/18 16:17 04/12/18 10:40 <Marlys Sims - Last Filed: 04/12/18 23:11> Medical Decision Making - Medical Decision Making 04/12/18 00:43 EXAM: CT brain without contrast HISTORY: Syncope FINDINGS: No hemorrhage. No obvious infarct. There is increased CSF density in the premedullary/foramen magnum region and may lobulated pattern. This could represent simply prominent CSF space or a subarachnoid cyst. Alternatively, low density dermoid or dermoid type tumors can produce this appearance. Recommend correlation with old scans. MRI if indicated. No shift or herniation. Osseous structures are intact. Read by: Hollis Fernando MD <Zhang Levine - Last Filed: 04/12/18 00:43> - Medical Decision Making 04/12/18 23:10 Pt comes with multiple medical problems. He was here last week with rectal bleed; returns with the same. However he also has electrolyte imabalances, weight loss, weakness, and dizziness and near syncope today. Pt will be admitted to the hospitalists. Hs treatment was started in the ER and he is looking better. He will be transfused on the medical floors. <Marlys Sims - Last Filed: 04/12/18 23:11> *DC/Admit/Observation/Transfer - Attestations Scribe Attestion: 04/11/18 20:54 Documentation prepared by Zhang Levine, acting as medical csr for Marlys Sims MD. <Zhang Levine - Last Filed: 04/12/18 00:43> - Discharge Dispostion Decision to Admit order: Yes <Marlys Sims - Last Filed: 04/12/18 23:11> Diagnosis at time of Disposition: Syncope, Dizziness, GI bleed, AICD (automatic cardioverter/defibrillator) present, HTN (hypertension), Weight loss - Discharge Dispostion Condition at time of disposition: Guarded
[2018-04-11 20:58] LABS: BASO % 0.1 % (0-2.0); HEMATOCRIT 21.8 % (35.4-49); HEMOGLOBIN 7.3 GM/dL (11.7-16.9); LYMPH % 10.7 % (8-40); MCH 30.1 pg (25.7-33.7); MCHC 33.3 g/dl (32.0-35.9); MEAN CELL VOLUME 90.4 fl (80-96); MEAN PLT VOLUME 7.7 fl (7.5-11.1); MONO % 10.3 % (3.8-10.2); NEUT % 78.9 % (42.8-82.8); PLATELET COUNT 232 K/MM3 (134-434); RBC 2.41 M/mm3 (4.00-5.60); RDW 14.9 % (11.9-15.9); WHITE BLOOD COUNT 8.4 K/mm3 (4.0-10.0)
[2018-04-11 21:22] LABS: ALBUMIN 1.5 g/dl (3.4-5.0); ANION GAP 10 (8-16); BILIRUBIN,TOTAL 0.3 mg/dL (0.2-1.0); BLOOD UREA NITROGEN 20 mg/dL (7-18); CHLORIDE 104 mmol/L (98-107); CO2 20 mmol/L (21-32); CREATININE 1.9 mg/dL (0.7-1.3); GLUCOSE,RANDOM 100 mg/dL (74-106); INR 1.28 (0.82-1.09); PROTHROMBIN TIME (PATIENT) 14.5 SEC (9.7-13.0); SGOT/AST 21 U/L (15-37); SGPT/ALT 20 U/L (12-78); SODIUM 134 mmol/L (136-145); TOT PROT 7.1 g/dl (6.4-8.2)
[2018-04-11 21:24] LABS: ALK PHOS 48 U/L (45-117)
[2018-04-11 21:40] LABS: POTASSIUM 2.9 mmol/L (3.5-5.1)
[2018-04-11 21:41] LABS: CALCIUM 6.9 mg/dL (8.5-10.1)
[2018-04-11] MEDS ORDERED: MAGNESIUM SULF 50% (8.12 MEQ/2 ML-1 GM VIAL) IVPB ONE (21:45)
[2018-04-11] MEDS ORDERED: KCL 10 MEQ IVPB 30 MEQ/300 ML INFUS.BAG IVPB ONE (21:51)
[2018-04-11] MEDS: KCL 10 MEQ IVPB 10 MEQ/100 ML INFUS.BAG IVPB SCH ×2 (22:30→23:23)
[2018-04-12] MEDS ORDERED: POTASSIUM CHLORIDE TABS 20 MEQ TABLET.ER (FP) PO ONE ×2 (01:48→02:28)
--- NOTE | 2018-04-12 02:14 | HP ---
CHIEF COMPLAINT: BRBPR PCP: Dr. Elizabeth HISTORY OF PRESENT ILLNESS: 72yo M PMHx of HTN, HLD, Non Ischemic cardiomyopathy with CHF, s/p defibrillator implant with hospitalization last week for same complaint of BRBPR after several episodes of diarrhea. Pt reports he periodically has episodes of diarrhea alternating with normacy and prior to last week's hospitalization had multiple episodes of blood mixed with his stool. Pt was evaluated here in the hospital and unforunately left AMA before pt received EGD/ colonoscopy. Pt ceased bleeding at this point and continued in his usual state of health until today where he again had episodes of diarrhea. Pt noted blood mixed with his stool in the bowl of the toilet and became lightheaded. He reports no syncopized event, but he lowered himself to the floor and sat down. He then came to the ER for further evaluation. Currently pt feels better and denies SOB, CP/discomfort, palpitations, lightheadedness, dizziness, abdominal pain, pain with defecation. ER course was notable for: (1) H/H 7.1/ and K of 2.7 (repleted wit 10 runs of KCl) (2) Head CT - no acute pathology PAST MEDICAL HISTORY: HTN, HLD, non-ischemic cardiomyopathy CHF PAST SURGICAL HISTORY: [employer] PPM- March 01 2015 Social History: Smoking: Never Alcohol:Denies Drugs: Denies Family History: heart dx in father () Unknown cancer in mother() Heart disease in brother (had stents; ) Alcoholic brother () Allergies No Known Allergies Allergy (Verified 04/11/18 20:13) HOME MEDICATIONS: Home Medications Medication Instructions Recorded Amlodipine Besylate 10 mg PO DAILY 04/04/18 Digoxin 125 mcg PO DAILY 04/04/18 Folic Acid 2 mg PO DAILY 04/04/18 Furosemide 20 mg PO DAILY 04/04/18 Losartan Potassium 100 mg PO DAILY 04/04/18 Metoprolol Succinate [Toprol Xl -] 50 mg PO DAILY 04/04/18 Simvastatin 20 mg PO DAILY 04/04/18 Spironolactone 25 mg PO DAILY 04/04/18 REVIEW OF SYSTEMS CONSTITUTIONAL: Absent: fever, chills, diaphoresis, generalized weakness, malaise, loss of appetite, weight change HEENT: Absent: rhinorrhea, nasal congestion, throat pain, throat swelling, difficulty swallowing, mouth swelling, ear pain, eye pain, visual changes CARDIOVASCULAR: Absent: chest pain, syncope, palpitations, irregular heart rate, lightheadedness , peripheral edema RESPIRATORY: Absent: cough, shortness of breath, dyspnea with exertion, orthopnea, wheezing, stridor, hemoptysis GASTROINTESTINAL: Present: hematochezia, diarrhea, Absent: abdominal pain, abdominal distension, nausea, vomiting, constipation, melena, GENITOURINARY: Absent: dysuria, frequency, urgency, hesitancy, hematuria, flank pain, genital pain MUSCULOSKELETAL: Absent: myalgia, arthralgia, joint swelling, back pain, neck pain SKIN: Absent: rash, itching, pallor HEMATOLOGIC/IMMUNOLOGIC: Absent: easy bleeding, frequent infections ENDOCRINE: Absent: unexplained weight gain, unexplained weight loss, heat intolerance, cold intolerance NEUROLOGIC: Absent: headache, focal weakness or paresthesias, dizziness, unsteady gait, seizure, mental status changes, bladder or bowel incontinence PSYCHIATRIC: Absent: anxiety, depression, suicidal or homicidal ideation, hallucinations. PHYSICAL EXAMINATION Vital Signs - 24 hr 04/11/18 20:04 Temperature 100 F H Pulse Rate 95 H Respiratory 18 Rate Blood Pressure 113/51 O2 Sat by Pulse 96 Oximetry (%) GENERAL: Awake, alert, and fully oriented, in no acute distress. HEENT: EOMI, ADELIA, sclera icteric, dry MM NECK: Normal range of motion, supple without lymphadenopathy, JVD, or masses. LUNGS: CTA bilaterally. No wheezes, and no crackles. No accessory muscle use. HEART: RRR, normal S1 and S2 with 2/6 systolic murmur RUSB. ABDOMEN: Soft, NT/ND, normoactive bowel sounds, no guarding, no rebound, no masses. Palpable liver edge at rib angle. No asterixis MUSCULOSKELETAL: No bony deformities or tenderness. No CVA tenderness. EXTREMITIES: 2+ DP pulses, warm, well-perfused. No peripheral edema. NEUROLOGICAL: commercial diver II-XII intact. Strength 5/5 with arm and wrist flexion and extension. 5/5 strength dorsal/plantar flexion and extension. Normal speech. Gait not observed PSYCHIATRIC: Cooperative. Good eye contact. Appropriate mood and affect. SKIN: Warm, dry, no rashes or lesions noted Laboratory Results - last 24 hr 04/11/18 04/11/18 04/11/18 20:40 20:40 20:40 WBC 8.4 D RBC 2.41 L D Hgb 7.3 L D Hct 21.8 L D MCV 90.4 MCH 30.1 MCHC 33.3 RDW 14.9 Plt Count 232 D MPV 7.7 Neutrophils % 78.9 D Lymphocytes % 10.7 D Monocytes % 10.3 H Eosinophils % 0.0 D Basophils % 0.1 Nucleated RBC % 0 PT with INR INR PTT (Actin FS) 25.1 L Sodium Potassium Chloride Carbon Dioxide Anion Gap BUN Creatinine Creat Clearance w eGFR Random Glucose Calcium Total Bilirubin AST ALT Alkaline Phosphatase Creatine Kinase Troponin I Total Protein Albumin Digoxin 0.1234 L Blood Type Antibody Screen Crossmatch 04/11/18 04/11/18 04/11/18 20:40 20:40 20:40 WBC RBC Hgb Hct MCV MCH MCHC RDW Plt Count MPV Neutrophils % Lymphocytes % Monocytes % Eosinophils % Basophils % Nucleated RBC % PT with INR 14.50 H INR 1.28 H PTT (Actin FS) Sodium 134 L Potassium 2.9 L* Chloride 104 Carbon Dioxide 20 L Anion Gap 10 BUN 20 H D Creatinine 1.9 H D Creat Clearance w eGFR 35.02 Random Glucose 100 Calcium 6.9 L* Total Bilirubin 0.3 D AST 21 D ALT 20 D Alkaline Phosphatase 48 Creatine Kinase 51 Troponin I 0.14 H D Total Protein 7.1 Albumin 1.5 L Digoxin Blood Type B POSITIVE Antibody Screen Negative Crossmatch See Detail ASSESSMENT/PLAN: 1) Symptomatic anemia 2/2 to GI Bleed --most likely lower in origin --Rectal exam notable for external hemorrhoids; no fissures --NPO currently --Protonix 40mg BID --GI consulted --Transfuse 1UPRBC; rpt CBC in AM 2) CONCEPCION --Most likely from hypoperfusion to the kidneys --Will monitor for now and avoid nephrotoxic agents 3) Elevated Troponin --0.14; continue to trend --Demand ischemia most likely again due to anemia and increased oxygen demand FEN: Fluids: Electrolyte abnormalities: Hypokalemia (s/p ED 3 runs of 10KCl; repeat BMP and replete futher) Nutrition: NPO for now PPX: DVT - SCDs only GI - Protonix 40mg BID IVP Case discussed with Dr. Hancock and Dr. Ángel Zhang, DO - IM PGY-1 Visit type - Emergency Visit Emergency Visit: Yes ED Registration Date: 04/12/18 Care time: The patient presented to the Emergency Department on the above date and was hospitalized for further evaluation of their emergent condition. - New Patient This patient is new to me today: Yes Date on this admission: 04/12/18 - Critical Care Critical Care patient: No Hospitalist Screening - Colonoscopy Questionnaire Colonoscopy Questionnaire: Colonoscopy Questionnaire - Patient: 50 - 75 years old and never had a screening colonoscopy: Unknown History of colon or rectal polyps, or CA: Unknown History of IBD, Crohn's disease or UC: Unknown History of abdominal radiation therapy as a child: Unknown - Relative: 1 with colon or rectal CA, or polyps at age 60 or younger: Unknown Colon or rectal CA diagnosed at age 45 or younger: Unknown Multiple relatives with colon or rectal CA: Unknown - Outcome: Screening Result: Negative Screen
[2018-04-12] MEDS ORDERED: KCL 10 MEQ IVPB 10 MEQ/100 ML INFUS.BAG IVPB ONE (02:28)
[2018-04-12] MEDS: KCL 10 MEQ IVPB 10 MEQ/100 ML INFUS.BAG IVPB SCH (02:45)
[2018-04-12] MEDS: PANTOPRAZOLE SODIUM 40 MG VIAL IVPUSH SCH ×3 (03:04→22:30)
[2018-04-12] MEDS ORDERED: PANTOPRAZOLE SODIUM 40 MG/100 ML BAG IVPB ONE ×2 (03:05→14:50)
[2018-04-12] MEDS ORDERED: LACTATED RINGERS SOLUTION 1,000 ML/1,000 ML INFUS.BAG IV SCH (03:30)
--- NOTE | 2018-04-12 05:27 | PN ---
Teaching Attending Note Name of Resident: Trice Hancock ATTENDING PHYSICIAN STATEMENT I saw and evaluated the patient. Chart, data, imaging reviewed. I reviewed the resident's note and discussed the case with the resident. I agree with the resident's findings and plan as documented. SUBJECTIVE: 72yo man w/ HTN, dyslipidemia, nonischemic cardiomyopathy with CHF, s/p defibrillator implant, recent hospitalization for BRBPR, left AMA before egd/ colonoscopy c/o peristnent BRBPR. Patient says he has been having loose stools with BRBPR for the past few weeks. No syncope. Never had colonoscopy performed before. Denied vomiting blood. Denied any excessive NSAID use. OBJECTIVE: Last Vital Signs Temp Pulse Resp BP Pulse Ox 98.3 F 85 20 110/74 98 04/12/18 03:52 04/12/18 03:52 04/12/18 03:52 04/12/18 03:52 04/12/18 03:52 general -nontoxic appearing, aaox3 heent- at, scleral pallor+, no oral lesions cv-s1+s2+rrr chest - cta b/l abdomen- soft skin- pallor rectal exam -hemorrhoids seen externally Abnormal Lab Results 04/11/18 04/11/18 04/11/18 20:40 20:40 20:40 RBC 2.41 L D Hgb 7.3 L D Hct 21.8 L D Monocytes % 10.3 H PT with INR INR PTT (Actin FS) 25.1 L Sodium Potassium Carbon Dioxide BUN Creatinine Calcium Troponin I Albumin Digoxin 0.1234 L Crossmatch 04/11/18 04/11/18 04/11/18 20:40 20:40 20:40 RBC Hgb Hct Monocytes % PT with INR 14.50 H INR 1.28 H PTT (Actin FS) Sodium 134 L Potassium 2.9 L* Carbon Dioxide 20 L BUN 20 H D Creatinine 1.9 H D Calcium 6.9 L* Troponin I 0.14 H D Albumin 1.5 L Digoxin Crossmatch See Detail ASSESSMENT AND PLAN: #72yo man with GI bleed. BRBPR may unknown source of bleeding but may be from hemorrhoids. Should exclude intrinsic causes of GI bleed. Clinically stable for admisison to med/surg -admit to telemetry -NPO -type and screen -GI consult for egd/colonoscopy #Positive troponin- likely positive to demand ischemia and/or secondary to CONCEPCION. Doubt active MA. EKG with no acute ischemic changes. -trend troponin #Severe symptomatic anemia -transfuse 1 PRBC in anticipation of H,H dropping -aim for H,H >8 with history of cardiac disease -avoid nsaids or heparin #Hypokalemia - likely 2/2 to diarrhea -EKG -supplement K+ -repeat chemistry panel #dvt ppx -SCDs
[2018-04-12 09:15] LABS: HEMATOCRIT 21.3 % (35.4-49); HEMOGLOBIN 7.2 GM/dL (11.7-16.9); MCH 30.4 pg (25.7-33.7); MCHC 33.8 g/dl (32.0-35.9); MEAN CELL VOLUME 90.1 fl (80-96); MEAN PLT VOLUME 7.7 fl (7.5-11.1); PLATELET COUNT 191 K/MM3 (134-434); RBC 2.36 M/mm3 (4.00-5.60); RDW 14.4 % (11.9-15.9); WHITE BLOOD COUNT 7.3 K/mm3 (4.0-10.0)
[2018-04-12] MEDS ORDERED: SODIUM CHLORIDE 250 ML IV STA (10:14)
[2018-04-12 10:29] LABS: ALBUMIN 1.4 g/dl (3.4-5.0); ANION GAP 7 (8-16); BLOOD UREA NITROGEN 23 mg/dL (7-18); CHLORIDE 111 mmol/L (98-107); CO2 20 mmol/L (21-32); CREATININE 1.8 mg/dL (0.7-1.3); GLUCOSE,RANDOM 92 mg/dL (74-106); POTASSIUM 3.7 mmol/L (3.5-5.1); SGOT/AST 22 U/L (15-37); SGPT/ALT 19 U/L (12-78); SODIUM 138 mmol/L (136-145)
[2018-04-12 10:31] LABS: ALK PHOS 44 U/L (45-117); BILIRUBIN,TOTAL 0.4 mg/dL (0.2-1.0); TOT PROT 6.5 g/dl (6.4-8.2)
[2018-04-12 10:34] LABS: CALCIUM 6.7 mg/dL (8.5-10.1)
[2018-04-12 10:55] LABS: HEMATOCRIT 21.4 % (35.4-49); HEMOGLOBIN 7.1 GM/dL (11.7-16.9); MCH 30.2 pg (25.7-33.7); MCHC 33.1 g/dl (32.0-35.9); MEAN CELL VOLUME 91.1 fl (80-96); MEAN PLT VOLUME 7.8 fl (7.5-11.1); PLATELET COUNT 197 K/MM3 (134-434); RBC 2.35 M/mm3 (4.00-5.60); RDW 14.6 % (11.9-15.9); WHITE BLOOD COUNT 6.6 K/mm3 (4.0-10.0)
[2018-04-12 11:17] LABS: ANION GAP 7 (8-16); BLOOD UREA NITROGEN 23 mg/dL (7-18); CHLORIDE 111 mmol/L (98-107); CO2 19 mmol/L (21-32); CREATININE 1.8 mg/dL (0.7-1.3); GLUCOSE,RANDOM 91 mg/dL (74-106); MAGNESIUM 2.4 mg/dL (1.8-2.4); PHOSPHOROUS 3.1 mg/dL (2.5-4.9); POTASSIUM 3.8 mmol/L (3.5-5.1); SODIUM 137 mmol/L (136-145)
[2018-04-12 11:19] LABS: CALCIUM 6.5 mg/dL (8.5-10.1)
--- NOTE | 2018-04-12 12:13 | PN ---
Progress Note (short form) - Note Progress Note: Subjective: left home ama few days ago, his bleeding and diarrhea resolved and returned yesterday. denies abd pain. no N/V . some times he sees watery stool with blood and some times only BRBPR . has not been taking his lasix or HTN meds since he left AMA Objective: Vital Signs: Last Vital Signs Temp Pulse Resp BP Pulse Ox 98.4 F 80 16 112/56 96 04/12/18 09:00 04/12/18 09:00 04/12/18 09:00 04/12/18 10:45 04/12/18 09:00 Laboratory Results - last 24 hr 04/11/18 04/11/18 04/11/18 20:40 20:40 20:40 WBC 8.4 D RBC 2.41 L D Hgb 7.3 L D Hct 21.8 L D MCV 90.4 MCH 30.1 MCHC 33.3 RDW 14.9 Plt Count 232 D MPV 7.7 Neutrophils % 78.9 D Lymphocytes % 10.7 D Monocytes % 10.3 H Eosinophils % 0.0 D Basophils % 0.1 Nucleated RBC % 0 PT with INR INR PTT (Actin FS) 25.1 L Sodium Potassium Chloride Carbon Dioxide Anion Gap BUN Creatinine Creat Clearance w eGFR Random Glucose Calcium Phosphorus Magnesium Total Bilirubin AST ALT Alkaline Phosphatase Creatine Kinase Troponin I Total Protein Albumin Digoxin 0.1234 L Blood Type Antibody Screen Crossmatch 04/11/18 04/11/18 04/11/18 20:40 20:40 20:40 WBC RBC Hgb Hct MCV MCH MCHC RDW Plt Count MPV Neutrophils % Lymphocytes % Monocytes % Eosinophils % Basophils % Nucleated RBC % PT with INR 14.50 H INR 1.28 H PTT (Actin FS) Sodium 134 L Potassium 2.9 L* Chloride 104 Carbon Dioxide 20 L Anion Gap 10 BUN 20 H D Creatinine 1.9 H D Creat Clearance w eGFR 35.02 Random Glucose 100 Calcium 6.9 L* Phosphorus Magnesium Total Bilirubin 0.3 D AST 21 D ALT 20 D Alkaline Phosphatase 48 Creatine Kinase 51 Troponin I 0.14 H D Total Protein 7.1 Albumin 1.5 L Digoxin Blood Type B POSITIVE Antibody Screen Negative Crossmatch See Detail 04/12/18 04/12/18 04/12/18 08:51 08:51 10:40 WBC 7.3 RBC 2.36 L Hgb 7.2 L Hct 21.3 L MCV 90.1 MCH 30.4 MCHC 33.8 RDW 14.4 Plt Count 191 MPV 7.7 Neutrophils % Lymphocytes % Monocytes % Eosinophils % Basophils % Nucleated RBC % PT with INR INR PTT (Actin FS) Sodium 138 137 Potassium 3.7 D 3.8 Chloride 111 H 111 H Carbon Dioxide 20 L 19 L Anion Gap 7 L 7 L BUN 23 H 23 H Creatinine 1.8 H 1.8 H Creat Clearance w eGFR 37.27 Random Glucose 92 91 Calcium 6.7 L* 6.5 L* Phosphorus 3.1 Magnesium 2.4 Total Bilirubin 0.4 D AST 22 ALT 19 Alkaline Phosphatase 44 L Creatine Kinase Troponin I Total Protein 6.5 Albumin 1.4 L Digoxin Blood Type Antibody Screen Crossmatch 04/12/18 10:40 WBC 6.6 RBC 2.35 L Hgb 7.1 L Hct 21.4 L MCV 91.1 MCH 30.2 MCHC 33.1 RDW 14.6 Plt Count 197 MPV 7.8 Neutrophils % Lymphocytes % Monocytes % Eosinophils % Basophils % Nucleated RBC % PT with INR INR PTT (Actin FS) Sodium Potassium Chloride Carbon Dioxide Anion Gap BUN Creatinine Creat Clearance w eGFR Random Glucose Calcium Phosphorus Magnesium Total Bilirubin AST ALT Alkaline Phosphatase Creatine Kinase Troponin I Total Protein Albumin Digoxin Blood Type Antibody Screen Crossmatch Physical Exam: NAD CV; RRR, no mRG, no JVD lungs: CATB Abd: sfot, NT, ND , N LBS Ext: no edema or erythema Assessment/Plan: 72 y/o man with h/o NICM, s/p AICD in 2014, HLP, HTN, and CHF, and recent admission for rectal bleed and who left AMA. [place] comes back with continued rectal bleed . 1- Rectal bleed : likely Lower GI bleed . ? diverticular, ? AVM, ? hemorrhoids . - s/p 1 unit of RBC , but HB remained the same. - will transfuse another unit and recheck HB - hold all HTN meds and diuretics - give IVF as bolus then slow infusion as BP is low - NPO - spoke to Dr. Gonzalez in a consult - PPI 2- H/o NICM with CHF: no echo in system. - hold diuretics for now. - monitor volume status while on IVF 3- HTN: hold as above 4- CONCEPCION: could be multifactorial due to hypovolemia in setting of diarrhea and GI bleed , and US showed L sided hydro with obstructing stone - uro eval - IVF 5- elevated trop :No chest pain, might be demand follow trop 6- DVT pX: SCDs Visit type - Emergency Visit Emergency Visit: Yes ED Registration Date: 04/12/18 Care time: The patient presented to the Emergency Department on the above date and was hospitalized for further evaluation of their emergent condition. - New Patient This patient is new to me today: Yes Date on this admission: 04/12/18 - Critical Care Critical Care patient: No
[2018-04-12] MEDS: SODIUM CHLORIDE 1,000 ML IV SCH (12:41)
--- NOTE | 2018-04-12 14:41 | PN ---
Progress Note (short form) - Note Progress Note: GI CONSULT FOR DR STAR VILLELA: PLEASE SEE THE COMPLETE CONSULT DICTATION PT KNOWN TO DR VILLELA WAS SEEN LAST 1 WEEK AGO AND WAS TO HAVE AN EGD/COLON FOR GI BLEEDING HOWEVER, PT LEFT AMA NOW HE RETURNS WITH REPEATED EPISODES OF DARK STOOLS/ G+ DROPIN HGB FROM 8.9 TO 7.1 VSS AND ONLY C/O SLIGHT DIZZYNESS NO FOCAL GI COMPLAINTS NO PRIOR GI W/U HAD BEEN ON NSAIDS UP UNTIL 1 WEEK AGO NO ETOH/LIVER DISEASE STOOL ESPARZA / G++++ LABS OTHERWISE STABLE FOR DX EGD EXAM IN THE AM AFTER PT RECEIVED PRBC'S AGREE WITH IV PPI MEDICATION AVOID NSAIDS F/U H/H SUSPECT WILL NEED COLONOSCOPY TO FOLLOW PENDING EGD FINDINGS D/W PT IN DETAILS AND HE CONSENTS FOR EGD EXAM THANKS, MD ISAI
--- NOTE | 2018-04-12 15:35 | CONS ---
DATE OF CONSULTATION: 04/12/2018 This consult is for Dr. Jluis Mercer. We are coverage for Dr. Mercer. The patient is a 72-year-old gentleman from [facility], who reports that his only past medical history is hypertension. He has never had any gastrointestinal disease. He did come to [facility] on April 04. At that time, he came because he was having rectal bleeding. He was seen by Dr. Arthur, who was covering Dr. Mercer at that time, who noted that his vital signs are stable, his hemoglobin had dropped from 8.9 to 7.8. He was having bright red blood per rectum. The patient never had any prior GI workup, never had routine colonoscopy or any GI disease. It was noted at that time, according to Dr. Arthur's note, the patient was taking sone nonsteroidal medication. The patient had no known drug allergies, was taking amlodipine, digoxin, folate, Lasix, losartan, metoprolol, simvastatin, and Aldactone. When the patient came in, Dr. Arthur had recommended the patient get a unit of blood, his hemoglobin and hematocrit be followed, and he be kept on some Protonix. He was to undergo an endoscopy and a colonoscopy at that time, however, it appears that the patient then had a sonogram of the abdomen, noting a renal cyst, a normal liver, no gallstones, pancreas was unremarkable, and the patient was to undergo an upper and lower endoscopy, however, the patient left AMA. The patient did not want to remain in the hospital at that time and none of the proposed tests were performed. However, now the patient returns to the hospital. He came in yesterday after he had been having a couple more intermittent episodes of hematochezia. He also, to note, has a history of an AICD defibrillator, and when he came in, he was having some lightheadedness and multiple bowel movements with some bright red blood. The patient was not having any fevers, chills, or sweats, nausea, vomiting, or headache, just a little dizziness. The patient does not smoke, drink, or use any drugs, and he has had no significant surgery except for the AICD. He has no known drug allergies and he has not been taking nonsteroidals since he had been here. When he came in, he had a temperature of 100, a pulse of 95, and a blood pressure of 113/51, and his pre-hydration hemoglobin was 7.3. The patient was admitted for further evaluation and has now received a unit of packed cells. The patient's hemoglobin had dropped to 7.1 and had a potassium of 2.7. He had a CAT scan of the head that revealed no acute pathology. The patient's current medications in the hospital include IV fluid and Protonix IV. He is not getting any other medications. He did get potassium transiently. On physical exam, he is a well-developed, well-nourished gentleman in no acute distress, nonicteric. Neck is supple. His abdomen is obese, it is soft. Bowel sounds are active. There are no scars. There are no masses, rebound, or guarding. There is no tenderness to deep palpation. Rectal exam revealed the presence of stool that is kind of darkish brown and strongly guaiac positive. His coagulation studies are essentially normal, with an INR of 1.2, and as noted, his hemoglobin, which on the last admission, when he came in, he was noted to have a hemoglobin of 8.9, which remains stable prior to his signing out AMA, and he comes back with the hemoglobin dropped to 7.1. His baseline in 2014 was 13.6. In terms of films, it appears he has not had any significant GI film. It is my impression that the patient is a 72-year-old gentleman from [facility], who had been on nonsteroidals previously, who came in a week ago with evidence of GI bleeding and was to undergo an endoscopy and colonoscopy. Now currently, he comes in again with some blood per rectum, which he reports dark tarry stools without significant pain or other GI symptoms. The patient's hemoglobin has dropped from 8.9, which it was on last admission, down to 7.1, and he is currently getting a unit of blood. At this time, he appears hemodynamically stable. My recommendation is to keep him on a clear liquid diet, make him n.p.o. at midnight, and then we will proceed, or Dr. Mercer will proceed with an upper endoscopy on April 13. Based on the endoscopic studies, further recommendations will follow. I would suspect he will need a colonoscopy. For now, I agree with empiric proton pump inhibition, following up his labs, and conservative supportive resuscitation prior to endoscopy. Thank you kindly, FADI ALEX M.D. GEOFF/[id number]
[2018-04-12 16:26] VITALS: BMI 26.6
[2018-04-12 16:58] LABS: HEMOGLOBIN 7.6 GM/dL (11.7-16.9); MCH 29.8 pg (25.7-33.7); MCHC 33.1 g/dl (32.0-35.9); MEAN PLT VOLUME 8.3 fl (7.5-11.1); PLATELET COUNT 194 K/MM3 (134-434); RBC 2.55 M/mm3 (4.00-5.60); RDW 14.6 % (11.9-15.9); WHITE BLOOD COUNT 6.2 K/mm3 (4.0-10.0)
[2018-04-13 06:47] LABS: HEMATOCRIT 27.3 % (35.4-49); HEMOGLOBIN 9.6 GM/dL (11.7-16.9); MCHC 35.1 g/dl (32.0-35.9); MEAN CELL VOLUME 88.2 fl (80-96); MEAN PLT VOLUME 8.1 fl (7.5-11.1); PLATELET COUNT 197 K/MM3 (134-434); RDW 14.6 % (11.9-15.9)
[2018-04-13 07:17] LABS: ANION GAP 6 (8-16); BLOOD UREA NITROGEN 14 mg/dL (7-18); CHLORIDE 111 mmol/L (98-107); CO2 21 mmol/L (21-32); CREATININE 1.4 mg/dL (0.7-1.3); GLUCOSE,RANDOM 80 mg/dL (74-106); MAGNESIUM 2.3 mg/dL (1.8-2.4); PHOSPHOROUS 2.7 mg/dL (2.5-4.9); POTASSIUM 3.3 mmol/L (3.5-5.1); SODIUM 138 mmol/L (136-145)
[2018-04-13 07:33] LABS: CALCIUM 6.6 mg/dL (8.5-10.1)
[2018-04-13] MEDS: PANTOPRAZOLE SODIUM 40 MG VIAL IVPUSH SCH ×2 (09:05→21:49)
--- NOTE | 2018-04-13 10:37 | PN ---
Physical Exam: SUBJECTIVE: Patient seen and examined. Received 3 u of blood. Says he feels better. Not lightheaded, no dizziness. No chest pain or palpitations. To have endoscopy today. OBJECTIVE: Vital Signs Period Temp Pulse Resp BP Sys/Bentley Pulse Ox Last 24 Hr 97.8 F-98.3 F 72-81 18-22 100-121/50-72 97-100 Vital Signs Temp 98.0 F 04/13/18 10:00 Pulse 72 04/13/18 10:00 Resp 22 04/13/18 10:00 BP 110/66 04/13/18 10:00 Pulse Ox 98 04/13/18 05:00 Intake & Output 04/12/18 04/12/18 04/13/18 11:59 23:59 11:59 Intake Total 670 1420 Output Total 600 850 Balance 70 570 Weight 81.647 kg Intake: IV 120 1220 Normal Saline - 1,000 ml 100 1200 @ 100 mls/hr IV ASDIR [facility] Rx#:[id number] SALINE LOCK 20 20 Oral 200 200 Packed Cells 350 Output: Urine 600 850 Void 600 850 Other: Voiding Method Urinal Urinal Bowel Movement Yes No # Bowel Movements 2 Height 1.75 m Body Mass Index (BMI) 26.6 Weight Measurement Method Stated by Patient Intake & Output 04/10/18 04/11/18 04/12/18 04/13/18 23:59 23:59 23:59 23:59 Intake Total 670 1420 Output Total 600 850 Balance 70 570 Weight 90.718 kg 81.647 kg GENERAL: The patient is awake, alert, and fully oriented, in no acute respiratory or painful distress. LUNGS: Breath sounds equal, clear to auscultation bilaterally, no wheezes, no crackles HEART: Regular rate and rhythm, S1, S2 without murmur ABDOMEN: Soft, nontender, nondistended, normoactive bowel sounds EXTREMITIES: 2+ pulses, warm, well-perfused, no edema. NEUROLOGICAL: AAOx3. Normal speech, gait not observed. Laboratory Results - last 24 hr 04/11/18 04/12/18 04/12/18 20:40 10:40 10:40 WBC 6.6 RBC 2.35 L Hgb 7.1 L Hct 21.4 L MCV 91.1 MCH 30.2 MCHC 33.1 RDW 14.6 Plt Count 197 MPV 7.8 Sodium 137 Potassium 3.8 Chloride 111 H Carbon Dioxide 19 L Anion Gap 7 L BUN 23 H Creatinine 1.8 H Random Glucose 91 Calcium 6.5 L* Phosphorus 3.1 Magnesium 2.4 Creatine Kinase 65 Troponin I 0.11 H Blood Type B POSITIVE Antibody Screen Negative Crossmatch See Detail 04/12/18 04/12/18 04/13/18 16:17 17:54 06:35 WBC 6.2 RBC 2.55 L Hgb 7.6 L Hct 23.0 L MCV 90.0 MCH 29.8 MCHC 33.1 RDW 14.6 Plt Count 194 MPV 8.3 Sodium 138 Potassium 3.3 L Chloride 111 H Carbon Dioxide 21 Anion Gap 6 L BUN 14 D Creatinine 1.4 H D Random Glucose 80 Calcium 6.6 L* Phosphorus 2.7 Magnesium 2.3 Creatine Kinase 63 Troponin I 0.10 H Blood Type Antibody Screen Crossmatch 04/13/18 06:35 WBC 6.0 RBC 3.10 L D Hgb 9.6 L D Hct 27.3 L D MCV 88.2 MCH 31.0 MCHC 35.1 RDW 14.6 Plt Count 197 MPV 8.1 Sodium Potassium Chloride Carbon Dioxide Anion Gap BUN Creatinine Random Glucose Calcium Phosphorus Magnesium Creatine Kinase Troponin I Blood Type Antibody Screen Crossmatch Active Medications Generic Name Dose Route Start Last Admin Trade Name Freq PRN Reason Stop Dose Admin Sodium Chloride 1,000 mls @ 100 mls/hr 04/12/18 11:14 04/12/18 12:41 Normal Saline - IV 100 mls/hr ASDIR FRANCISCO JAVIER Administration Pantoprazole Sodium 40 mg 04/12/18 03:00 04/13/18 09:05 Protonix Iv IVPUSH 40 mg BID FRANCISCO JAVIER Administration ASSESSMENT/PLAN: 72yo M PMHx of HTN, HLD, Non Ischemic cardiomyopathy with CHF, s/p defibrillator implant with hospitalization last week for same complaint of BRBPR after several episodes of diarrhea. Symptomatic anemia 2/2 to GI Bleed --most likely lower in origin --Rectal exam done by admitting team notable for external hemorrhoids; no fissures --NPO currently --Protonix 40mg BID --GI consulted; recs appreciated --Received 3UPRBC --CBC good response CONCEPCION --Most likely from hypoperfusion to the kidneys, could also be due to hdronephrosis with 8mm stone --Will monitor for now and avoid nephrotoxic agents --Urology consult Elevated Troponin --0.14; continue to trend --Demand ischemia most likely again due to anemia and increased oxygen demand Hypokalemia --(s/p ED 3 runs of 10KCl; repeat BMP and replete futher) --iv 10meq KCl (NPO for endoscopy) FEN: Fluids: Electrolyte abnormalities: Nutrition: NPO for now PPX: DVT - SCDs only GI - Protonix 40mg BID IVP Dispo: Will follow recs post endoscopy may beneficial from colonoscopy after bowel prep Cont med surg Visit type - Emergency Visit Emergency Visit: Yes ED Registration Date: 04/12/18 Care time: The patient presented to the Emergency Department on the above date and was hospitalized for further evaluation of their emergent condition. - New Patient This patient is new to me today: No - Critical Care Critical Care patient: No - Discharge Referral Referred to [facility] Med P.C.: No
[2018-04-13] MEDS: SODIUM CHLORIDE 1,000 ML IV SCH (11:00)
--- NOTE | 2018-04-13 11:25 | EKG ---
Test Reason : Blood Pressure : / mmHG Vent. Rate : 081 BPM Atrial Rate : 081 BPM P-R Int : 148 ms QRS Dur : 098 ms QT Int : 428 ms P-R-T Axes : 042 -33 076 degrees QTc Int : 497 ms SINUS RHYTHM WITH OCCASIONAL PREMATURE VENTRICULAR COMPLEXES LEFT AXIS DEVIATION PROLONGED QT ABNORMAL ECG WHEN COMPARED WITH ECG OF 04-APR-2018 09:15, NO SIGNIFICANT CHANGE WAS FOUND Confirmed by MACO CALI MD ([id number]) on 04/13/2018 11:24:31 AM Referred By: Confirmed By:MACO CALI MD
--- NOTE | 2018-04-13 12:00 | PN ---
Teaching Attending Note Name of Resident: Agnes Velasquez ATTENDING PHYSICIAN STATEMENT I saw and evaluated the patient. I reviewed the resident's note and discussed the case with the resident. I agree with the resident's findings and plan as documented. SUBJECTIVE:asymptomatic. had normal brown BM yesterday. denies CP, SOB, fever, chills, N/V/C/D, melena or BRBPR, denies any flank pain or hematuria never had colonoscopy OBJECTIVE: Last Vital Signs Temp Pulse Resp BP Pulse Ox 98.0 F 72 22 110/66 97 04/13/18 10:00 04/13/18 10:00 04/13/18 10:00 04/13/18 10:00 04/13/18 09:00 General NAD ABdomen soft NT/ND ASSESSMENT AND PLAN: 72yo M with PMH HTN. dyslipidemia, CHF s/p AICD placement presented to the ER for BRBPR was seen last week in the hospital 1. Symptomatic Anemia- s/p 3 units PRBC. NPO for EGD today. if negative will need to have colonscopy. cnt protonix IV. GI consulted. f/u recommendations 2. CONCEPCION- due to volume depletion and possible obstructing kidney stone. mild hydro appreciated. now improved. cont IVF. avoid nephrotoxic agents 3. Tropinemia-flat trend of troponins liekly due to CONCEPCION. no cardiac symptoms. can f/u wtih cardio as outpatient 4. Hypokalemia- resolved 5. Nephrolithasis- incidental L 8mm kidney stone seen on U/s with hydro. will liekly require lithotripsy for removal as likely causing a blockage. urology consult. never had kidney stones in the past, no family hx. 6. Hypocalcemia- Corrected Ca 8.6 7. HTN- controlled off home medication. can re-start as needed. wont possible require all his home medications. (on 4 agents at home) 8. CHF- does nto appear volume overloaded and was noted to dehydrated on presentation. will re-start heart failure prior to discharge. 9. DVT ppx- SCD. hold pharmacologic anticoagulation in setting of GI bleed
[2018-04-13] MEDS ORDERED: POTASSIUM CHLORIDE 20 MEQ PREMIX IVPB 100 ML IVPB ONE (12:50)
[2018-04-13] MEDS ORDERED: KCL 10 MEQ IVPB 10 MEQ/100 ML INFUS.BAG IVPB ONE (14:00)
[2018-04-13] MEDS ORDERED: PROPOFOL 20 ML ONE (14:21)
--- NOTE | 2018-04-13 14:57 | PROC ---
Endoscopy Procedure Endoscopy procedure completed. Please see scanned procedure report. 4 cm hital hernia w/o signs of inflammation in the esophagus, otherwise normal EGD. Random biopsies taken. Plan colonoscopy
[2018-04-13] MEDS ORDERED: POTASSIUM CHLORIDE 10 MEQ in SODIUM CHLORIDE 100 ML IVPB ONE (16:30)
[2018-04-13] MEDS ORDERED: LOPERAMIDE HCL 2 MG CAPSULE PO ONE (23:15)
[2018-04-14 07:43] LABS: BASO % 0.4 % (0-2.0); EOS % 1.2 % (0-4.5); HEMATOCRIT 27.9 % (35.4-49); HEMOGLOBIN 9.7 GM/dL (11.7-16.9); LYMPH % 34.9 % (8-40); MCH 30.6 pg (25.7-33.7); MEAN CELL VOLUME 87.6 fl (80-96); MEAN PLT VOLUME 8.2 fl (7.5-11.1); MONO % 11.4 % (3.8-10.2); NEUT % 52.1 % (42.8-82.8); PLATELET COUNT 234 K/MM3 (134-434); RBC 3.18 M/mm3 (4.00-5.60); RDW 14.6 % (11.9-15.9); WHITE BLOOD COUNT 6.3 K/mm3 (4.0-10.0)
--- NOTE | 2018-04-14 07:52 | PN ---
Physical Exam: SUBJECTIVE: Patient seen and examined. Said to be having loose stools without blood. Is concerned about the urgency of the loose stools and asked for imodium last night. Is to start colonsocopy prep today. Pt insists he has no problem with his heart and only wants the issue with his colon fixed. No abdominal pain/ fevers/n/v. PVCs on tele. OBJECTIVE: Vital Signs Period Temp Pulse Resp BP Sys/Bentley Pulse Ox Last 24 Hr 97.9 F-98.6 F 66-91 16-22 104-139/55-77 97-100 Vital Signs Temp 97.8 F 04/14/18 14:00 Pulse 80 04/14/18 14:00 Resp 18 04/14/18 08:00 BP 123/74 04/14/18 14:00 Pulse Ox 99 04/14/18 08:00 Intake & Output 04/13/18 04/14/18 04/14/18 23:59 11:59 23:59 Intake Total 500 700 Output Total 400 Balance 100 700 Weight 85.638 kg Intake: IV 500 700 Normal Saline - 1,000 ml 400 700 @ 100 mls/hr IV ASDIR [facility] Rx#:[id number] Output: Urine 400 Void 400 Other: Voiding Method Urinal Urinal Bowel Movement Yes Yes # Bowel Movements 2 3 Weight Measurement Method Standing Scale Intake & Output 04/11/18 04/12/18 04/13/18 04/14/18 23:59 23:59 23:59 23:59 Intake Total 670 1920 700 Output Total 600 1250 Balance 70 670 700 Weight 90.718 kg 81.647 kg 85.638 kg GENERAL: The patient is awake, alert, and fully oriented, in no acute painful distress. LUNGS: Breath sounds equal, clear to auscultation bilaterally HEART: irregular, S1, S2 without murmur ABDOMEN: Obese, Soft, nontender, normoactive bowel sounds EXTREMITIES: 2+ pulses, warm, well-perfused, no edema. NEUROLOGICAL: AAOx 3. Normal speech, gait not observed. No facial droop, no lateralizing signs. Normal tone and strength globally. Active Medications Generic Name Dose Route Start Last Admin Trade Name Freq PRN Reason Stop Dose Admin Bisacodyl 20 mg 04/14/18 14:59 Dulcolax - PO 04/14/18 15:00 ONCE ONE Sodium Chloride 1,000 mls @ 100 mls/hr 04/12/18 11:14 04/13/18 11:00 Normal Saline - IV 100 mls/hr ASDIR FRANCISCO JAVIER Administration Pantoprazole Sodium 40 mg 04/12/18 03:00 04/13/18 21:49 Protonix Iv IVPUSH 40 mg BID FRANCISCO JAVIER Administration Polyethylene Glycol/Electrolytes 4,000 ml 04/14/18 17:00 Golytely Solution - PO 04/14/18 17:01 ONCE ONE Ambulatory Orders Amlodipine Besylate 10 mg PO DAILY 04/04/18 Digoxin 125 mcg PO DAILY 04/04/18 Folic Acid 2 mg PO DAILY 04/04/18 Furosemide 20 mg PO DAILY 04/04/18 Losartan Potassium 100 mg PO DAILY 04/04/18 Metoprolol Succinate [Toprol Xl -] 50 mg PO BID 04/04/18 Simvastatin 20 mg PO DAILY 04/04/18 Spironolactone 25 mg PO DAILY 04/04/18 Current Medications Metoprolol Tartrate (Lopressor -) 25 mg PO TID [facility] Last Admin: 04/14/18 14:12 Dose: 25 mg Pantoprazole Sodium (Protonix Iv) 40 mg IVPUSH BID [facility] Last Admin: 04/14/18 09:41 Dose: 40 mg Polyethylene Glycol/Electrolytes (Golytely Solution -) 4,000 ml PO ONCE ONE Stop: 04/14/18 17:01 ASSESSMENT/PLAN: 72yo M PMHx of HTN, HLD, Non Ischemic cardiomyopathy with CHF, s/p defibrillator implant with hospitalization last week for same complaint of BRBPR after several episodes of diarrhea. Symptomatic anemia 2/2 to GI Bleed - EGD-hiatal hernia --NPO after midnight for colonoscopy --Protonix 40mg BID --GI consulted; recs appreciated --Received 3UPRBC --Pending bowel prep for colonoscopy tomorrow CONCEPCION --Most likely from hypoperfusion to the kidneys, could also be due to hdronephrosis with 8mm stone --Will monitor for now and avoid nephrotoxic agents --Urology consult - S/p 3UPRBCs, was on IVF- stop fluids HTN and NICM hx -Pt insists he has no cardiac problem and has an outpt doc- Dr Ortega -Cardio consult- Dr Pack apprec recs -Resume metoprolol -ECHO- pending reading Elevated Troponin --0.14; continue to trend --Demand ischemia most likely again due to anemia and increased oxygen demand Hypokalemia --Continues KCL repletion as needed FEN: Fluids: Electrolyte abnormalities: Nutrition: NPO for now PPX: DVT - SCDs only GI - Protonix 40mg BID IVP Dispo: Will follow recs post endoscopy may beneficial from colonoscopy after bowel prep Cont med surg Visit type - Emergency Visit Emergency Visit: Yes ED Registration Date: 04/12/18 Care time: The patient presented to the Emergency Department on the above date and was hospitalized for further evaluation of their emergent condition. - New Patient This patient is new to me today: No - Critical Care Critical Care patient: No - Discharge Referral Referred to [facility] Med P.C.: No
[2018-04-14 08:57] LABS: BLOOD UREA NITROGEN 12 mg/dL (7-18); CALCIUM 7.1 mg/dL (8.5-10.1); CHLORIDE 114 mmol/L (98-107); CREATININE 1.3 mg/dL (0.7-1.3); GLUCOSE,RANDOM 81 mg/dL (74-106); MAGNESIUM 2.3 mg/dL (1.8-2.4); PHOSPHOROUS 2.2 mg/dL (2.5-4.9); SODIUM 140 mmol/L (136-145)
[2018-04-14 09:15] LABS: POTASSIUM 2.9 mmol/L (3.5-5.1)
[2018-04-14] MEDS: PANTOPRAZOLE SODIUM 40 MG VIAL IVPUSH SCH ×2 (09:41→21:29)
[2018-04-14 09:45] LABS: ANION GAP 7 (8-16); CO2 19 mmol/L (21-32)
[2018-04-14] MEDS ORDERED: POTASSIUM CHLORIDE TABS 20 MEQ TABLET.ER (FP) PO ONE (11:03)
--- NOTE | 2018-04-14 11:23 | CON.CARD ---
Cardiology Consult (text) - Consultation Consultation Note: CC: NICM 72 M, HTN, HL, NICM (per prior notes may have had nl cors on [facility] although patient denies cath) S/P medtronic AICD 2014 at [facility] who p/w BRBPR. Recent admit lat week for BRBPR, but left AMA. Now back with recurrent loose stool mixed with bright red blood. + associated dizziness. On ems arrival bp 74/46, hr 110. Prior to last weeks episode of BRBPR, he reported having taken nsaids for subjective fevers. s/p EGD yesterday. patient states he is active and has no limitations walking up a flight of stairs. Denies hx of cad, cva. Denies cp, sob, orthopnea, pnd, le edema, palps, claudication or transient neurologic symptoms Denies chills, sweats, n/v , cough, congestion, rash, h/a, visual disturbances. cards: Dr. Irby [facility] PMHx/PSHx: per hpi Social Hx: (-) Smoking (-) ETOH or substance abuse Family Hx: heart dx in father, unknown cancer in mother, CAD with stents in brother. ROS: as per HPI Ambulatory Orders Amlodipine Besylate 10 mg PO DAILY 04/04/18 Digoxin 125 mcg PO DAILY 04/04/18 Folic Acid 2 mg PO DAILY 04/04/18 Furosemide 20 mg PO DAILY 04/04/18 Losartan Potassium 100 mg PO DAILY 04/04/18 Metoprolol Succinate [Toprol Xl -] 50 mg PO BID 04/04/18 Simvastatin 20 mg PO DAILY 04/04/18 Spironolactone 25 mg PO DAILY 04/04/18 Current Medications Bisacodyl (Dulcolax -) 20 mg PO ONCE ONE Stop: 04/14/18 15:00 Sodium Chloride (Normal Saline -) 1,000 mls @ 100 mls/hr IV ASDIR [facility] Last Admin: 04/13/18 11:00 Dose: 100 mls/hr Pantoprazole Sodium (Protonix Iv) 40 mg IVPUSH BID [facility] Last Admin: 04/14/18 09:41 Dose: 40 mg Polyethylene Glycol/Electrolytes (Golytely Solution -) 4,000 ml PO ONCE ONE Stop: 04/14/18 17:01 Vital Signs - 24 hr 04/13/18 04/13/1804/13/18 14:00 14:46 15:02 Temperature 98 F 97.9 F Pulse Rate 71 71 70 Respiratory 20 16 20 Rate Blood Pressure 119/61 104/55 104/67 O2 Sat by Pulse 97 100 Oximetry (%) 04/13/18 04/13/18 04/13/18 15:17 15:28 22:00 Temperature 97.9 F 98.5 F Pulse Rate 66 70 69 Respiratory 20 20 20 Rate Blood Pressure 114/62 114/62 117/63 O2 Sat by Pulse 98 98 Oximetry (%) 04/13/18 04/14/18 04/14/18 23:13 02:00 06:00 Temperature 98.6 F 98.2 F Pulse Rate 91 H 76 Respiratory 20 20 20 Rate Blood Pressure 139/77 129/74 O2 Sat by Pulse 98 Oximetry (%) 04/14/18 04/14/18 07:55 08:00 Temperature 98.1 F Pulse Rate 77 Respiratory 18 18 Rate Blood Pressure 122/64 O2 Sat by Pulse 99 Oximetry (%) Intake & Output 04/12/18 04/13/18 04/14/18 04/15/18 07:59 07:59 07:59 07:59 Intake Total 2090 1200 Output Total 1450 400 Balance 640 800 Weight 200 lb 180 lb NAD, calm JVD flat, neck supple ctab, nl effort rrr nl s1, s2. no mrg + bs soft nt nd ext with trace edema, no c/c + dp/pt, no carotid bruits no jaundice, diaphoresis aaox3 CBC, BMP 04/14/18 06:50 04/14/18 06:50 Laboratory Tests 04/05/18 04/11/18 04/11/18 07:53 20:40 20:40 Hgb 9.3 L D 7.3 L D INR Calcium Phosphorus Magnesium Total Bilirubin AST ALT Alkaline Phosphatase Creatine Kinase Troponin I Albumin Digoxin 0.1234 L 04/11/18 04/11/18 04/12/18 20:40 20:40 08:51 Hgb INR 1.28 H Calcium Phosphorus Magnesium Total Bilirubin 0.4 D AST 22 ALT 19 Alkaline Phosphatase 44 L Creatine Kinase 51 Troponin I 0.14 H D Albumin 1.4 L Digoxin 04/12/18 04/12/18 04/14/18 10:40 17:54 06:50 Hgb INR Calcium 7.1 L Phosphorus 2.2 L Magnesium 2.3 Total Bilirubin AST ALT Alkaline Phosphatase Creatine Kinase 65 63 Troponin I 0.11 H 0.10 H Albumin Digoxin EKG: SR with pvc, lad. bline prolonged qt, no acute ischemic changes. tele: frequent pvc's, couplets, triplets. runs of slow wide complex rhythm, possible AIVR. cxr: wnl EGD 04/13/18: 4 cm hital hernia w/o signs of inflammation in the esophagus, otherwise normal EGD abd u/s 04/2018: lt nephrolithiasis, mod hydro (inc from March). CT a/p 03/2018: bibasilar atelectasis. hepatomegaly. right adrenal mass. obstructing kidney stone with mild left hydro. fat stranding suggestive of mild acute diverticulitis. no prior echo in system outpatient cardiac meds: toprol 50, losartan 100, aldactone 25, dig 125, lasix 20, norvasc 10, simva 20, no asa ASSESSMENT/PLAN: 72 M, HTN, HL, NICM (per prior notes may have had nl cors on [facility]) S/P medtronic AICD 2014 at [facility] who p/w BRBPR. GIB - ongoing mgm't per pmd/gi. s/p EGD 04/13. Has plan for colonoscopy. - s/p IVF/prbc's x 3. BP stable, will hold IVF as mentioned below. presumed NICM s/p medtronic ICD - no prior echo available, echo here pending.. patient states he is compliant with outpatient cards f/u and had his icd checked recently. - holding lasix/aldactone/toprol/losartan and norvasc in setting of GIB. s/p 250 cc IV bolus on 04/12 and subsequently IVF at 100 cc/hr in addition to prbc's x 3. - 04/14. BP now stable, would d/c IVF. ++++ ventricular ectopy, will resume low dose lopressor (25 tid). aggressive lyte repletion. appears euvolemic. - daily weigtht, I/o's. dig level ok. CONCEPCION - emproved s/p IVF. Also with obstructing kidney stone/mild left hydro on ct scan, eval/mgm't per pmd. HTN - meds as above HL - resume statin once stable.
[2018-04-14] MEDS ORDERED: POTASSIUM CHLORIDE 20 MEQ in SODIUM CHLORIDE 250 ML IVPB ONE (11:30)
[2018-04-14] MEDS ORDERED: PT OWN MED DRAWER 7, Y5N ONE (14:05)
[2018-04-14] MEDS: METOPROLOL TARTRATE 25 MG TABLET (FP) PO SCH ×3 (14:09→21:29)
[2018-04-14] MEDS ORDERED: BISACODYL 5 MG TABLET.DR (FP) PO ONE (14:59)
--- NOTE | 2018-04-14 15:26 | PN ---
Teaching Attending Note Name of Resident: Agnes Velasquez ATTENDING PHYSICIAN STATEMENT I saw and evaluated the patient. I reviewed the resident's note and discussed the case with the resident. I agree with the resident's findings and plan as documented with exceptions below. SUBJECTIVE: Patient seen and examined, no complaints, no further bloody BM. OBJECTIVE: Vital Signs Period Temp Pulse Resp BP Sys/Bentley Pulse Ox Last 24 Hr 97.8 F-98.6 F 69-91 18-20 114-139/62-77 98-99 Intake & Output 04/11/18 04/12/18 04/13/18 04/14/18 23:59 23:59 23:59 23:59 Intake Total 670 1920 700 Output Total 600 1250 Balance 70 670 700 Weight 200 lb 180 lb 188 lb 12.8 oz General: sitting in bed, getting 2D echo at bedside currently Home Medications Medication Instructions Recorded Amlodipine Besylate 10 mg PO DAILY 04/04/18 Digoxin 125 mcg PO DAILY 04/04/18 Folic Acid 2 mg PO DAILY 04/04/18 Furosemide 20 mg PO DAILY 04/04/18 Losartan Potassium 100 mg PO DAILY 04/04/18 Metoprolol Succinate [Toprol Xl -] 50 mg PO BID 04/04/18 Simvastatin 20 mg PO DAILY 04/04/18 Spironolactone 25 mg PO DAILY 04/04/18 Active Medications Metoprolol Tartrate (Lopressor -) 25 mg PO TID [facility] Last Admin: 04/14/18 14:12 Dose: 25 mg Pantoprazole Sodium (Protonix Iv) 40 mg IVPUSH BID [facility] Last Admin: 04/14/18 09:41 Dose: 40 mg Polyethylene Glycol/Electrolytes (Golytely Solution -) 4,000 ml PO ONCE ONE Stop: 04/14/18 17:01 Laboratory Results - last 24 hr 04/14/18 04/14/18 06:50 06:50 WBC 6.3 RBC 3.18 L Hgb 9.7 L Hct 27.9 L MCV 87.6 MCH 30.6 MCHC 35.0 RDW 14.6 Plt Count 234 MPV 8.2 Absolute Neuts (auto) 3.3 Neutrophils % 52.1 D Lymphocytes % 34.9 D Monocytes % 11.4 H Eosinophils % 1.2 D Basophils % 0.4 D Nucleated RBC % 0 Sodium 140 Potassium 2.9 L* Chloride 114 H Carbon Dioxide 19 L Anion Gap 7 L BUN 12 Creatinine 1.3 Random Glucose 81 Calcium 7.1 L Phosphorus 2.2 L Magnesium 2.3 ASSESSMENT AND PLAN: 72yo M with PMH HTN. dyslipidemia, CHF s/p AICD placement presented to the ER for BRBPR was seen last week in the hospital -Acute on chronic GI bleed, likely lower GI, ?diverticulosis vs haemorrhoids, r/ o malignancy, no s/s concerning for infection -Likely NICM, no recent echo available, -Elevated Troponin, suspect demand induced from anemia/GI bleed -s/p AICD -Acute blood loss anemia s/p 3 units PRBC -CONCEPCION, likely from hypovolumia +/- kidney stone with obstruction -Hypokalemia -Hypocalcemia -HTN -Adrenal mass on recent admission CT A/P Plan: EGD noted, for colonoscopy tomorrow. agreable to bowel prep. Avoid further imodium. Stool C difficile neg. H/h stable. Monitor renal function. Add K to IVF, Patient has been aware of adrenal mass and left kidney stone with hydronephrosis , deferred treatment currently. urology input inpatient vs outpatient based on clinical course. Resume home lopressor, continue telemetry. IVF with close monitoring of volume status. DVTPPx with SCds dispo pending colonoscopy above. Plan discussed with patient in detail, all questions answered.
[2018-04-14] MEDS ORDERED: PEG 3350/NA SULF BICARB CL/KCL 4000 ML SOLN.RECON PO ONE ×2 (17:00→21:45)
[2018-04-14] MEDS: NAPH,MB-DB/K PH,MBDB POWDER PACKET PO SCH (21:29)
[2018-04-14] MEDS ORDERED: ACETAMINOPHEN 325 MG TABLET (FP) PO PRN (23:24)
[2018-04-15 03:33] LABS: ANION GAP 9 (8-16); BLOOD UREA NITROGEN 11 mg/dL (7-18); CHLORIDE 111 mmol/L (98-107); CO2 20 mmol/L (21-32); CREATININE 1.5 mg/dL (0.7-1.3); GLUCOSE,RANDOM 111 mg/dL (74-106); SODIUM 140 mmol/L (136-145)
[2018-04-15 03:44] LABS: POTASSIUM 2.8 mmol/L (3.5-5.1)
[2018-04-15] MEDS: KCL 10 MEQ IVPB 10 MEQ/100 ML INFUS.BAG IVPB SCH ×3 (04:29→06:56)
[2018-04-15] MEDS: METOPROLOL TARTRATE 25 MG TABLET (FP) PO SCH ×3 (06:29→21:16)
[2018-04-15 07:30] LABS: CHLORIDE 112 mmol/L (98-107); POTASSIUM 3.5 mmol/L (3.5-5.1); SODIUM 140 mmol/L (136-145)
[2018-04-15 07:31] LABS: HEMATOCRIT 24.1 % (35.4-49); HEMOGLOBIN 8.3 GM/dL (11.7-16.9); MCH 30.4 pg (25.7-33.7); MCHC 34.4 g/dl (32.0-35.9); MEAN CELL VOLUME 88.5 fl (80-96); PLATELET COUNT 204 K/MM3 (134-434); RBC 2.72 M/mm3 (4.00-5.60); RDW 14.6 % (11.9-15.9); WHITE BLOOD COUNT 11.4 K/mm3 (4.0-10.0)
[2018-04-15 07:44] LABS: ANION GAP 9 (8-16); BLOOD UREA NITROGEN 11 mg/dL (7-18); CO2 19 mmol/L (21-32); CREATININE 1.4 mg/dL (0.7-1.3); GLUCOSE,RANDOM 97 mg/dL (74-106); MAGNESIUM 2.1 mg/dL (1.8-2.4)
--- NOTE | 2018-04-15 08:42 | PN ---
Teaching Attending Note Name of Resident: Agnes Velasquez ATTENDING PHYSICIAN STATEMENT I saw and evaluated the patient. I reviewed the resident's note and discussed the case with the resident. I agree with the resident's findings and plan as documented with exceptions below. SUBJECTIVE: Patient seen and examined. No new complaints, bowel prep overnight. OBJECTIVE: Vital Signs Period Temp Pulse Resp BP Sys/Bentley Pulse Ox Last 24 Hr 97.8 F-99.0 F 69-86 20-20 105-131/55-74 99 Intake & Output 04/12/18 04/13/18 04/14/18 04/15/18 23:59 23:59 23:59 23:59 Intake Total 670 1920 1020 200 Output Total 600 1250 Balance 70 670 1020 200 Weight 180 lb 188 lb 12.8 oz General: sitting in bed in no acute distress Home Medications Medication Instructions Recorded Amlodipine Besylate 10 mg PO DAILY 04/04/18 Digoxin 125 mcg PO DAILY 04/04/18 Folic Acid 2 mg PO DAILY 04/04/18 Furosemide 20 mg PO DAILY 04/04/18 Losartan Potassium 100 mg PO DAILY 04/04/18 Metoprolol Succinate [Toprol Xl -] 50 mg PO BID 04/04/18 Simvastatin 20 mg PO DAILY 04/04/18 Spironolactone 25 mg PO DAILY 04/04/18 Active Medications Acetaminophen (Tylenol -) 325 mg PO Q4H PRN PRN Reason: FEVER Last Admin: 04/14/18 23:31 Dose: 325 mg Metoprolol Tartrate (Lopressor -) 25 mg PO TID [facility] Last Admin: 04/15/18 06:29 Dose: Not Given Pantoprazole Sodium (Protonix Iv) 40 mg IVPUSH BID [facility] Last Admin: 04/14/18 21:29 Dose: 40 mg Potassium Phos/Sodium Phos (Phos-Nak Packet -) 2 packet PO BID [facility] Stop: 04/15/18 10:01 Last Admin: 04/14/18 21:29 Dose: 2 packet Abnormal Lab Results 04/11/18 04/14/18 04/15/18 20:40 06:50 03:00 WBC RBC Hgb Hct Potassium 2.9 L* 2.8 L* Chloride 114 H 111 H Carbon Dioxide 19 L 20 L Anion Gap 7 L Creatinine 1.5 H Random Glucose 111 H D Calcium 7.1 L 7.0 L Phosphorus 2.2 L Crossmatch See Detail 04/15/18 04/15/18 06:50 06:50 WBC 11.4 H D RBC 2.72 L Hgb 8.3 L D Hct 24.1 L Potassium Chloride 112 H Carbon Dioxide 19 L Anion Gap Creatinine 1.4 H Random Glucose Calcium 7.0 L Phosphorus Crossmatch ASSESSMENT AND PLAN: 72yo M with PMH HTN. dyslipidemia, CHF s/p AICD placement presented to the ER for BRBPR was seen last week in the hospital -Acute on chronic GI bleed, likely lower GI, ?diverticulosis vs haemorrhoids, r/ o malignancy, no s/s concerning for infection -Likely NICM, no recent echo available, -Elevated Troponin, suspect demand induced from anemia/GI bleed -s/p AICD -Acute blood loss anemia s/p 3 units PRBC -CONCEPCION, likely from hypovolumia +/- kidney stone with obstruction -Hypokalemia -Hypocalcemia -HTN -Adrenal mass on recent admission CT A/P Plan: EGD noted, Discussed with Dr. Mercer, evidence of colitis/diverticulitis with pseudopolyp. ID consulted. Discussed with Dr. Engel, given prolonged QTc will treat with augmentin and flagyl. Outpatient GI follow up, follow up on biopsy results and further work up. Stool C difficile neg. Monitor renal function. Replete K prn. Patient has been aware of adrenal mass and left kidney stone with hydronephrosis , deferred treatment currently. urology input inpatient vs outpatient based on clinical course. Renal function stable. Continue lopressor given frequent PVCs, continue telemetry. 2D echo noted, cardiology input appreciated. Off IVF, monitor volume status. DVTPPx with SCds dispo in 24 hours with outpatient GI follow up if no concerns Plan discussed with patient in detail, all questions answered.
--- NOTE | 2018-04-15 09:02 | PN ---
Physical Exam: SUBJECTIVE: Patient seen and examined. Received tylenol Po for a temp of 100.5 last night. Started bowel prep for colonoscopy at around 3pm and had multiple bowel movements without blood. No abdominal pain. Restarted on metoprolol yesterday. OBJECTIVE: Vital Signs Period Temp Pulse Resp BP Sys/Bentley Pulse Ox Last 24 Hr 97.8 F-99.0 F 69-86 20-20 105-131/55-74 99 Vital Signs Temp 97.8 F 04/15/18 14:00 Pulse 84 04/15/18 14:00 Resp 20 04/15/18 14:00 BP 131/59 04/15/18 14:00 Pulse Ox 100 04/15/18 12:20 Intake & Output 04/14/18 04/15/18 04/15/18 23:59 11:59 23:59 Intake Total 320 1000 Balance 320 1000 Weight 85.638 kg Intake: IV 20 1000 SALINE LOCK 20 200 Oral 300 Other: Voiding Method Urinal Urinal Toilet Bowel Movement Yes Yes # Bowel Movements 3 Weight Measurement Method Standing Scale GENERAL: The patient is awake, alert, and fully oriented, in no acute distress. NC-2L LUNGS: Breath sounds equal, clear to auscultation bilaterally HEART: Regular rate and rhythm, S1, S2 without murmur. ABDOMEN: obese, Soft, nontender, normoactive bowel sounds EXTREMITIES: 2+ pulses, warm, well-perfused, no edema. NEUROLOGICAL: AAO x3, normal speech. No facial droop, no lateralizing signs. Normal muscle strength and tone. CBC, BMP 04/15/18 06:50 04/15/18 06:50 Laboratory Results - last 24 hr 04/11/18 04/14/18 04/15/18 20:40 06:50 03:00 WBC RBC Hgb Hct MCV MCH MCHC RDW Plt Count MPV Sodium 140 140 Potassium 2.9 L* 2.8 L* Chloride 114 H 111 H Carbon Dioxide 19 L 20 L Anion Gap 7 L 9 BUN 12 11 Creatinine 1.3 1.5 H Random Glucose 81 111 H D Calcium 7.1 L 7.0 L Phosphorus 2.2 L Magnesium 2.3 Blood Type B POSITIVE Antibody Screen Negative Crossmatch See Detail 04/15/18 04/15/18 06:50 06:50 WBC 11.4 H D RBC 2.72 L Hgb 8.3 L D Hct 24.1 L MCV 88.5 MCH 30.4 MCHC 34.4 RDW 14.6 Plt Count 204 MPV 8.0 Sodium 140 Potassium 3.5 D Chloride 112 H Carbon Dioxide 19 L Anion Gap 9 BUN 11 Creatinine 1.4 H Random Glucose 97 Calcium 7.0 L Phosphorus Magnesium 2.1 Blood Type Antibody Screen Crossmatch Active Medications Generic Name Dose Route Start Last Admin Trade Name Freq PRN Reason Stop Dose Admin Acetaminophen 325 mg 04/14/18 23:24 04/14/18 23:31 Tylenol - PO 325 mg Q4H PRN Administration FEVER Metoprolol Tartrate 25 mg 04/14/18 11:23 04/15/18 06:29 Lopressor - PO Not Given TID [facility] Pantoprazole Sodium 40 mg 04/12/18 03:00 04/14/18 21:29 Protonix Iv IVPUSH 40 mg BID [facility] Administration Potassium Phos/Sodium Phos 2 packet 04/14/18 22:00 04/14/18 21:29 Phos-Nak Packet - PO 04/15/18 10:01 2 packet BID [facility] Administration Ambulatory Orders Amlodipine Besylate 10 mg PO DAILY 04/04/18 Digoxin 125 mcg PO DAILY 04/04/18 Folic Acid 2 mg PO DAILY 04/04/18 Furosemide 20 mg PO DAILY 04/04/18 Losartan Potassium 100 mg PO DAILY 04/04/18 Metoprolol Succinate [Toprol Xl -] 50 mg PO BID 04/04/18 Simvastatin 20 mg PO DAILY 04/04/18 Spironolactone 25 mg PO DAILY 04/04/18 Current Medications Acetaminophen (Tylenol -) 325 mg PO Q4H PRN PRN Reason: FEVER Last Admin: 04/14/18 23:31 Dose: 325 mg Amoxicillin/Clavulanate Potassium (Augmentin - 875mg Tablet) 1 tab PO BID@0800, 1730 [facility] Mesalamine (Asacol Hd -) 800 mg PO TID [facility] Last Admin: 04/15/18 15:26 Dose: 800 mg Metoprolol Tartrate (Lopressor -) 25 mg PO TID [facility] Last Admin: 04/15/18 15:26 Dose: 25 mg Metronidazole (Flagyl -) 250 mg PO TID [facility] Last Admin: 04/15/18 15:24 Dose: 250 mg Pantoprazole Sodium (Protonix Iv) 40 mg IVPUSH BID [facility] Last Admin: 04/15/18 15:26 Dose: 40 mg ECHO 04/14/18: Technically limited study. LV mildly dialted -LVEF grossly N-55-60% . E?A reversal consistent but not diagnostic of poor LV compliance. RV is not well visualized. RV is mild-mod dilated. Pacemaker lead in RV. RV function cannot be assessed due to poor image quality. LA is mildly dilated. RA not well visualized. Mild aortic sclerosis. Mild to moderate annular calcification. Mild MR, mild TR, mild Pulm HTN. RV systolic pressure is elevated at 40-50mmhg. EGD-hiatal hernia colonoscopy 04/15/18: severe diverticulosis with inflammation and purulent discharge. + ulcerated polyps. ASSESSMENT/PLAN: 72yo M PMHx of HTN, HLD, Non Ischemic cardiomyopathy with CHF, s/p defibrillator implant with hospitalization last week for same complaint of BRBPR after several episodes of diarrhea. Diverticulitis --noted on CT abd previous admission and on colonsocopy --ID-Dr Engel consulted -- flagyl --mesalamine --Augmentin Symptomatic anemia 2/2 to GI Bleed --No current brice bleed or melena - EGD-hiatal hernia --Protonix 40mg BID --GI consulted; recs appreciated --Received 3UPRBC --s/p colonoscopy -diverticulitis -- flagyl and Augmentin CONCEPCION --Most likely from hypoperfusion to the kidneys, could also be due to hydronephrosis with 8mm stone --Will monitor for now and avoid nephrotoxic agents --Urology consult - S/p 3UPRBCs, --s/p fluids, cr- trending down HTN and NICM hx -Pt insists he has no cardiac problem and has an outpt doc- Dr Ortega -Cardio consult- Dr Pack apprec recs -Continue metoprolol 25mg bid -ECHO- see above Elevated Troponin --0.14 --Demand ischemia most likely again due to anemia and increased oxygen demand Hypokalemia --Continuous KCL repletion as needed FEN: Fluids: Replete lytes as needed PPX: DVT - SCDs only GI - Protonix 40mg BID IVP Dispo: Cont med surg Visit type - Emergency Visit Emergency Visit: Yes ED Registration Date: 04/12/18 Care time: The patient presented to the Emergency Department on the above date and was hospitalized for further evaluation of their emergent condition. - New Patient This patient is new to me today: No - Critical Care Critical Care patient: No - Discharge Referral Referred to [facility] Med P.C.: No
[2018-04-15] MEDS: NAPH,MB-DB/K PH,MBDB POWDER PACKET PO SCH (10:09)
[2018-04-15] MEDS: PANTOPRAZOLE SODIUM 40 MG VIAL IVPUSH SCH ×3 (10:09→21:16)
[2018-04-15] MEDS ORDERED: PROPOFOL 20 ML ONE ×3 (10:24)
[2018-04-15] MEDS ORDERED: LIDOCAINE HCL/PF 2% SDV 5ML VIAL ONE (10:24)
--- NOTE | 2018-04-15 10:40 | EKG ---
Test Reason : Blood Pressure : / mmHG Vent. Rate : 075 BPM Atrial Rate : 075 BPM P-R Int : 148 ms QRS Dur : 100 ms QT Int : 464 ms P-R-T Axes : 035 -24 031 degrees QTc Int : 518 ms POOR DATA QUALITY, INTERPRETATION MAY BE ADVERSELY AFFECTED SINUS RHYTHM WITH SINUS ARRHYTHMIA WITH FREQUENT PREMATURE VENTRICULAR COMPLEXES NONSPECIFIC ST ABNORMALITY PROLONGED QT ABNORMAL ECG WHEN COMPARED WITH ECG OF 12-APR-2018 03:49, NONSPECIFIC T WAVE ABNORMALITY NO LONGER EVIDENT IN LATERAL LEADS Confirmed by BISHNU ROSE, JALEN ([id number]) on 04/15/2018 10:40:02 AM Referred By: Confirmed By:JALEN GOETZ MD
--- NOTE | 2018-04-15 11:29 | PATH ---
Surgical Pathology Report Patient Name: SANGEETHA CASTELLANO [facility]. Rec. #: [id number] /Age/Gender: 1945 (Age: 72) / M Account: [id number] Location: 4 W TELEMETRY U Taken: 04/13/2018 Received: 04/14/2018 Reported: 04/15/2018 Physicians: Geena Hassan M.D. Specimen(s) Received A: BX 2ND PORTION DUODENUM B: BX ANTRUM AND BODY Clinical History GI bleed Postoperative diagnosis: GI bleed, normal EGD Final Diagnosis A. DUODENUM, SECOND PORTION, BIOPSY: DUODENAL MUCOSA WITHOUT SIGNIFICANT PATHOLOGIC FINDINGS. B. STOMACH, ANTRUM AND BODY, BIOPSY: GASTRIC ANTRAL AND BODY MUCOSA WITH MILD CHRONIC FOCAL ACTIVE GASTRITIS. IMMUNOHISTOCHEMICAL STAIN FOR H. PYLORI IS NEGATIVE. Electronically Signed Christy Pond M.D. Gross Description A. Received in formalin, labeled "biopsy second portion duodenum" are 2 cheney, irregular portions of soft tissue measuring 0.3 and 0.4 cm. in greatest dimension. The specimens are submitted in toto in one cassette. B. Received in formalin, labeled "biopsy antrum and body" are 2 cheney, irregular portions of soft tissue measuring 0.2 and 0.4 cm. in greatest dimension. The specimens are submitted in toto in one cassette. 04/14/2018 saudi04/14/2018
[2018-04-15] MEDS ORDERED: POTASSIUM CHLORIDE TABS 10 MEQ TABLET.ER (FP) PO ONE (15:00)
[2018-04-15] MEDS: metroNIDAZOLE 250 MG TABLET PO SCH ×2 (15:24→21:16)
[2018-04-15] MEDS: MESALAMINE 800 MG TABLET.DR PO SCH ×2 (15:26→21:17)
--- NOTE | 2018-04-15 16:17 | CON.ID ---
Consult Consult Specialty:: infectious diseases Referred by:: Reason for Consultation:: diverticulitis - History of Present Illness Chief Complaint: gi bleed History of Present Illness: 72yo M PMHx of HTN, HLD, Non Ischemic cardiomyopathy with CHF, s/p defibrillator implant admitted to the hospital because of dirrhoea according to the patient he was ahving this alternating with normal stools.patient was admitted and then signed out ama and then had to come back to the hospital. it seems patient was bleeding in the last admission which then stopped and had multiple episodes of blood mixed with his stool. patient has undergone colonoscopy today and found to have diverticulitis patient has no clinical symptoms pertaining to that patient also mentions that he has lost about 80 pounds in a year - History Source History Provided By: Patient, Medical Record - Past Medical History Cardio/Vascular: Yes: HTN, Other (History of defibrilator placement. 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 History of Recent Travel: No Home Medications - Allergies Allergies/Adverse Reactions: Allergies Allergy/AdvReac Type Severity Reaction Status Date / Time No Known Allergies Allergy Verified 04/11/18 20:13 - Home Medications Home Medications: Ambulatory Orders Amlodipine Besylate 10 mg PO DAILY 04/04/18 Digoxin 125 mcg PO DAILY 04/04/18 Folic Acid 2 mg PO DAILY 04/04/18 Furosemide 20 mg PO DAILY 04/04/18 Losartan Potassium 100 mg PO DAILY 04/04/18 Metoprolol Succinate [Toprol Xl -] 50 mg PO BID 04/04/18 Simvastatin 20 mg PO DAILY 04/04/18 Spironolactone 25 mg PO DAILY 04/04/18 Family Disease History - Family Disease History Family Disease History: Other: Father (: 70's: unclear cause), Mother ( in 70's: "cancer"), Brother (2: 1 from [place], 1 from ETOH abuse complications), Daughter (1, from lung problems, 2 healthy) Review of Systems - Review of Systems Constitutional: reports: Unintentional Wgt. Loss Eyes: reports: No Symptoms HENT: reports: No Symptoms Neck: reports: No Symptoms Cardiovascular: reports: No Symptoms Respiratory: reports: No Symptoms Gastrointestinal: reports: Constipation, Diarrhea Musculoskeletal: reports: No Symptoms Integumentary: reports: No Symptoms Neurological: reports: No Symptoms Endocrine: reports: No Symptoms Hematology/Lymphatic: reports: No Symptoms Psychiatric: reports: No Symptoms Physical Exam Vital Signs: Vital Signs Temperature 97.8 F 04/15/18 14:00 Pulse Rate 84 04/15/18 14:00 Respiratory Rate 20 04/15/18 14:00 Blood Pressure 131/59 04/15/18 14:00 O2 Sat by Pulse Oximetry (%) 100 04/15/18 12:20 Constitutional: Yes: No Distress, Calm, Other Eyes: Yes: Conjunctiva Clear Cardiovascular: Yes: Regular Rate and Rhythm Respiratory: Yes: Regular, CTA Bilaterally Gastrointestinal: Yes: Normal Bowel Sounds, Soft Musculoskeletal: Yes: WNL Extremities: Yes: WNL Neurological: Yes: Alert, Oriented Psychiatric: Yes: Alert, Oriented Labs: CBC, BMP 04/15/18 06:50 04/15/18 06:50 Imaging - Results Chest X-ray: Report Reviewed, Image Reviewed Cat Scan: Report Reviewed, Image Reviewed Ultrasound: Report Reviewed, Image Reviewed Assessment/Plan dirrhoea diverticulitis bleeding p/r plan can increase dose of levaquin to 500 conitnue flagy patient will need it for 2 weeks
--- NOTE | 2018-04-15 16:51 | PN ---
Progress Note (short form) - Note Progress Note: CC: NICM S: lopressor uptitrated to 25 tid yesterday. Had colonoscopy today. levaquin and flagyl added today. Clarified med regimen with patient. confirms he is on digoxin and spironolactone as outpatient in addition to metoprolol and losartan. cards/EP: Dr. Irby at [facility] [place] Current Medications Acetaminophen (Tylenol -) 325 mg PO Q4H PRN PRN Reason: FEVER Last Admin: 04/14/18 23:31 Dose: 325 mg Levofloxacin (Levaquin -) 250 mg PO DAILY@0600 [facility] Last Admin: 04/15/18 15:26 Dose: 250 mg Mesalamine (Asacol Hd -) 800 mg PO TID [facility] Last Admin: 04/15/18 15:26 Dose: 800 mg Metoprolol Tartrate (Lopressor -) 25 mg PO TID [facility] Last Admin: 04/15/18 15:26 Dose: 25 mg Metronidazole (Flagyl -) 250 mg PO TID [facility] Last Admin: 04/15/18 15:24 Dose: 250 mg Pantoprazole Sodium (Protonix Iv) 40 mg IVPUSH BID [facility] Last Admin: 04/15/18 15:26 Dose: 40 mg Vital Signs - 24 hr 04/14/18 04/14/18 04/14/18 17:00 21:00 22:22 Temperature 98.3 F 98.0 F Pulse Rate 79 83 Respiratory 20 20 20 Rate Blood Pressure 131/72 123/55 O2 Sat by Pulse 99 Oximetry (%) 04/15/18 04/15/18 04/15/18 01:00 05:57 08:00 Temperature 99.0 F 97.9 F Pulse Rate 86 69 Respiratory 20 20 18 Rate Blood Pressure 105/55 124/60 O2 Sat by Pulse 98 Oximetry (%) 04/15/18 04/15/18 04/15/18 10:08 11:36 11:53 Temperature 97.7 F 98.6 F Pulse Rate 72 76 93 H Respiratory 18 18 22 Rate Blood Pressure 130/59 116/45 103/41 O2 Sat by Pulse 100 100 Oximetry (%) 04/15/18 04/15/18 04/15/18 12:08 12:19 12:20 Temperature 98.6 F 98.6 F Pulse Rate 70 73 70 Respiratory 20 21 20 Rate Blood Pressure 109/55 109/58 O2 Sat by Pulse 100 97 100 Oximetry (%) 04/15/18 14:00 Temperature 97.8 F Pulse Rate 84 Respiratory 20 Rate Blood Pressure 131/59 O2 Sat by Pulse Oximetry (%) Intake & Output 04/13/18 04/14/18 04/15/18 04/16/18 07:59 07:59 07:59 07:59 Intake Total 2090 1200 520 800 Output Total 1450 400 Balance 640 800 520 800 Weight 180 lb 188 lb 12.8 oz NAD, calm JVD flat, neck supple ctab, nl effort rrr nl s1, s2. no mrg + bs soft nt nd ext with trace edema, no c/c + dp/pt, no carotid bruits no jaundice, diaphoresis aaox3 CBC, BMP 04/15/18 06:50 04/15/18 06:50 Laboratory Tests 04/14/18 04/15/18 06:50 06:50 Hgb 9.7 L Magnesium 2.1 EKG: SR with pvc, lad. bline prolonged qt, no acute ischemic changes. EKG: SR with frequent pvc's. leftward axis. prolonged qtc tele: sr frequent pvc's, couplets, triplets. nsvt up to 7 beats. echo 04/2018: 1+ lve. EF 55-60%. E/A reversal. mild-mod RVE. unable to assess rv function. 1+ lae. RA not well seen. mild-mod mac, 1+ mr. cxr: wnl colonoscopy 04/15/18: severe diverticulosis with inflammation and purulent discharge. + ulcerated polyps. EGD 04/13/18: 4 cm hital hernia w/o signs of inflammation in the esophagus, otherwise normal EGD abd u/s 04/2018: lt nephrolithiasis, mod hydro (inc from March). CT a/p 03/2018: bibasilar atelectasis. hepatomegaly. right adrenal mass. obstructing kidney stone with mild left hydro. fat stranding suggestive of mild acute diverticulitis. outpatient cardiac meds: toprol 50, losartan 100, aldactone 25, dig 125, lasix 20, norvasc 10, simva 20, no asa ASSESSMENT/PLAN: 72 M, HTN, HL, NICM S/P medtronic ICD 2014, now with normalization of EF who p /w BRBPR. GIB - ongoing mgm't per pmd/gi. s/p EGD 04/13 and colonoscopy 04/15. - s/p IVF/prbc's x 3. BP stable, IVF stopped 04/14. presumed NICM s/p medtronic ICD for primary prevention, EF now normalized. - Last icd check in March --> nl fn/lead parameters, no arrhythmias. - dilated NICM dx on 12/2014 echo. EF at the time was 28%. non-obs cad on cath at that time. In february, still had EF < 35% on HF therapy --> underwent ICD for primary prevention. - holding lasix/aldactone/toprol/losartan and norvasc in setting of GIB. s/p 250 cc IV bolus on 04/12 and subsequently IVF at 100 cc/hr in addition to prbc's x 3. - 04/14. BP now stable, would d/c IVF. ++++ ventricular ectopy, will resume low dose lopressor (25 tid). aggressive lyte repletion. appears euvolemic. - 04/15. still with +++ ectopy, nsvt. however am lopressor dose held this morning and k is still being repleted. con't aggressive lyte repletion. bp stable on lopressor uptitrate if possible. If further improvement in bp, would add back low dose losartan next. echo shows normal systolic function. would hold digoxin (dig level here Ok). remains euvolemic off diuretics (today is first standing scale weight). - daily weight, I/o's, bmp. prolonged qt - worsening prolongation in setting of hypokalemia. lyte repletion as discussed. would avoid qt prolonging drugs where possible. currently on protonix, levaquin and flagyl which all prolong qt - repeat ekg tomorrow if k normalizes. CONCEPCION - improved s/p IVF. Also with obstructing kidney stone/mild left hydro on ct scan, eval/mgm't per pmd. HTN - meds as above HL - resume statin once stable. > 30 min spent reviewing records from [facility] [place].
[2018-04-16] MEDS: METOPROLOL TARTRATE 25 MG TABLET (FP) PO SCH ×3 (06:16→22:14)
[2018-04-16] MEDS: metroNIDAZOLE 250 MG TABLET PO SCH ×3 (06:16→22:14)
[2018-04-16] MEDS: MESALAMINE 800 MG TABLET.DR PO SCH ×3 (06:16→22:14)
[2018-04-16 06:32] LABS: BASO % 0.4 % (0-2.0); EOS % 0.9 % (0-4.5); HEMATOCRIT 22.6 % (35.4-49); HEMOGLOBIN 7.9 GM/dL (11.7-16.9); MCH 30.9 pg (25.7-33.7); MCHC 35.1 g/dl (32.0-35.9); MONO % 10.4 % (3.8-10.2); NEUT % 61.3 % (42.8-82.8); PLATELET COUNT 206 K/MM3 (134-434); RBC 2.57 M/mm3 (4.00-5.60); RDW 14.9 % (11.9-15.9); WHITE BLOOD COUNT 7.4 K/mm3 (4.0-10.0)
[2018-04-16 06:47] LABS: CHLORIDE 111 mmol/L (98-107); POTASSIUM 3.1 mmol/L (3.5-5.1); SODIUM 139 mmol/L (136-145)
[2018-04-16 06:56] LABS: ALBUMIN 1.4 g/dl (3.4-5.0); ALK PHOS 43 U/L (45-117); ANION GAP 8 (8-16); BILIRUBIN,TOTAL 0.4 mg/dL (0.2-1.0); BLOOD UREA NITROGEN 12 mg/dL (7-18); CALCIUM 7.2 mg/dL (8.5-10.1); CO2 20 mmol/L (21-32); CREATININE 1.2 mg/dL (0.7-1.3); GLUCOSE,RANDOM 87 mg/dL (74-106); MAGNESIUM 2.1 mg/dL (1.8-2.4); PHOSPHOROUS 1.8 mg/dL (2.5-4.9); SGOT/AST 41 U/L (15-37); SGPT/ALT 38 U/L (12-78); TOT PROT 6.3 g/dl (6.4-8.2)
--- NOTE | 2018-04-16 08:18 | PN ---
Teaching Attending Note Name of Resident: Agnes Velasquez ATTENDING PHYSICIAN STATEMENT I saw and evaluated the patient. I reviewed the resident's note and discussed the case with the resident. I agree with the resident's findings and plan as documented with exceptions below. SUBJECTIVE: Patient seen and examined. no new chest pain, dizziness, palpitations, dark or bloody stools. OBJECTIVE: Vital Signs Period Temp Pulse Resp BP Sys/Bentley Pulse Ox Last 24 Hr 97.7 F-98.6 F 68-93 18-22 103-131/41-75 96-100 Intake & Output 04/13/18 04/14/18 04/15/18 04/16/18 23:59 23:59 23:59 23:59 Intake Total 1920 1020 1300 Output Total 1250 Balance 670 1020 1300 Weight 188 lb 12.8 oz 195 lb 2 oz General: sitting in chair in no acute distress Chest: CTAB, no rales or wheezing Abdomen: soft, NT, ND, Home Medications Medication Instructions Recorded Amlodipine Besylate 10 mg PO DAILY 04/04/18 Digoxin 125 mcg PO DAILY 04/04/18 Folic Acid 2 mg PO DAILY 04/04/18 Furosemide 20 mg PO DAILY 04/04/18 Losartan Potassium 100 mg PO DAILY 04/04/18 Metoprolol Succinate [Toprol Xl -] 50 mg PO BID 04/04/18 Simvastatin 20 mg PO DAILY 04/04/18 Spironolactone 25 mg PO DAILY 04/04/18 Active Medications Acetaminophen (Tylenol -) 325 mg PO Q4H PRN PRN Reason: FEVER Last Admin: 04/14/18 23:31 Dose: 325 mg Amoxicillin/Clavulanate Potassium (Augmentin - 875mg Tablet) 1 tab PO BID@0800, 1730 [facility] Potassium Chloride (Potassium Chloride 10 Meq Premix Ivpb -) 10 meq in 100 mls @ 100 mls/hr IVPB Q60M [facility] Stop: 04/16/18 10:29 Mesalamine (Asacol Hd -) 800 mg PO TID [facility] Last Admin: 04/16/18 06:16 Dose: 800 mg Metoprolol Tartrate (Lopressor -) 25 mg PO TID [facility] Last Admin: 04/16/18 06:16 Dose: 25 mg Metronidazole (Flagyl -) 250 mg PO TID [facility] Last Admin: 04/16/18 06:16 Dose: 250 mg Pantoprazole Sodium (Protonix Iv) 40 mg IVPUSH BID [facility] Last Admin: 04/15/18 21:16 Dose: 40 mg Potassium Chloride (K-Dur -) 40 meq PO ONCE ONE Stop: 04/16/18 08:20 Microbiology 04/14/18 10:30 Stool Clostridium difficile Antigen (FERNANDA) - Final 04/14/18 10:30 Stool Clostridium difficile Toxin Assay - Final Abnormal Lab Results 04/11/18 04/16/18 04/16/18 20:40 05:30 05:30 RBC 2.57 L Hgb 7.9 L Hct 22.6 L Monocytes % 10.4 H Potassium 3.1 L Chloride 111 H Carbon Dioxide 20 L Calcium 7.2 L Phosphorus 1.8 L AST 41 H D Alkaline Phosphatase 43 L Total Protein 6.3 L Albumin 1.4 L Crossmatch See Detail 04/16/18 08:05 RBC Hgb Hct Monocytes % Potassium Chloride Carbon Dioxide Calcium Phosphorus AST Alkaline Phosphatase Total Protein Albumin Crossmatch See Detail ASSESSMENT AND PLAN: 72yo M with PMH HTN. dyslipidemia, CHF s/p AICD placement presented to the ER for BRBPR was seen last week in the hospital -Acute on chronic GI bleed, EGD neg, Colonoscopy with colitis/pseudopolyps/ diverticular disease -Likely NICM, no recent echo available, -Elevated Troponin, suspect demand induced from anemia/GI bleed -s/p AICD -Acute blood loss anemia s/p 3 units PRBC -CONCEPCION, likely from hypovolumia +/- kidney stone with obstruction -Hypokalemia -Hypocalcemia -Prolonged QTc -HTN -Adrenal mass on recent admission CT A/P Plan: EGD/colonoscopy noted. Discussed with Dr. Calzada/Maren. Augmentin/flagyl (avoid levaquin due to QTc 518) Stool C difficile neg. Drop in h/h with no gross evidence of bleed, transfuse 1 unit PRBC, discussed with GI, follow up biopsy results. Monitor renal function. Additional K repletion today, monitor K levels and QTc. Patient has been aware of adrenal mass and left kidney stone with hydronephrosis , deferred treatment currently. urology input inpatient vs outpatient based on clinical course. Renal function stable. Continue lopressor given frequent PVCs, continue telemetry. 2D echo noted, cardiology input appreciated. Off IVF, monitor volume status. DVTPPx with SCds dispo planning on hold given recurrent anemia and need for monitoring. Plan discussed with patient in detail, all questions answered.
[2018-04-16] MEDS ORDERED: POTASSIUM CHLORIDE TABS 20 MEQ TABLET.ER (FP) PO ONE ×2 (08:19→11:15)
[2018-04-16] MEDS ORDERED: POTASSIUM CHLORIDE 20 MEQ in DEXTROSE 5%-WATER - 250 ML IVPB ONE (08:30)
[2018-04-16] MEDS ORDERED: POTASSIUM CHLORIDE 20 MEQ in SODIUM CHLORIDE 250 ML IVPB ONE (08:45)
--- NOTE | 2018-04-16 10:00 | PROC ---
Endoscopy Procedure Endoscopy procedure completed. Please see scanned procedure report. colonoscopy report scanned
[2018-04-16] MEDS: PANTOPRAZOLE SODIUM 40 MG VIAL IVPUSH SCH ×2 (11:18→22:14)
[2018-04-16] MEDS: AMOX TR/POT CLAV 875MG/125MG TABLETS (FP) PO SCH ×2 (11:18→16:46)
--- NOTE | 2018-04-16 11:20 | PN ---
Progress Note (short form) - Note Progress Note: CC: NICM S: no cp sob palps dizzy cards/[place] [facility] [place] Medications Generic Name Dose Route Start Last Admin Trade Name Eloisa PRN Reason Stop Dose Admin Acetaminophen 325 mg 04/14/18 23:24 04/14/18 23:31 Tylenol - PO 325 mg Q4H PRN Administration FEVER Amoxicillin/Clavulanate Potassium 1 tab 04/16/18 08:00 04/16/18 11:18 Augmentin - 875mg Tablet PO 1 tab BID@0800,1730 [facility] Administration Mesalamine 800 mg 04/15/18 14:00 04/16/18 06:16 Asacol Hd - PO 800 mg TID [facility] Administration Metoprolol Tartrate 25 mg 04/14/18 11:23 04/16/18 06:16 Lopressor - PO 25 mg TID [facility] Administration Metronidazole 250 mg 04/15/18 14:00 04/16/18 06:16 Flagyl - PO 250 mg TID [facility] Administration Pantoprazole Sodium 40 mg 04/12/18 03:00 04/16/18 11:18 Protonix Iv IVPUSH 40 mg BID [facility] Administration Vital Signs Period Temp Pulse Resp BP Sys/Bentley Pulse Ox Last 24 Hr 97.8 F-98.6 F 68-93 18-22 103-131/41-75 96-100 NAD, calm JVD flat, neck supple ctab, nl effort rrr nl s1, s2. no mrg + bs soft nt nd ext with trace edema, no c/c no jaundice, diaphoresis aaox3 CBC, BMP 04/16/18 05:30 04/16/18 05:30 EKG: SR with pvc, lad. bline prolonged qt, no acute ischemic changes. EKG: SR with frequent pvc's. leftward axis. prolonged qtc tele: sr echo 04/2018: 1+ lve. EF 55-60%. E/A reversal. mild-mod RVE. unable to assess rv function. 1+ lae. RA not well seen. mild-mod mac, 1+ mr. cxr: wnl colonoscopy 04/15/18: severe diverticulosis with inflammation and purulent discharge. + ulcerated polyps. EGD 04/13/18: 4 cm hital hernia w/o signs of inflammation in the esophagus, otherwise normal EGD abd u/s 04/2018: lt nephrolithiasis, mod hydro (inc from March). CT a/p 03/2018: bibasilar atelectasis. hepatomegaly. right adrenal mass. obstructing kidney stone with mild left hydro. fat stranding suggestive of mild acute diverticulitis. outpatient cardiac meds: toprol 50, losartan 100, aldactone 25, dig 125, lasix 20, norvasc 10, simva 20, no asa ASSESSMENT/PLAN: 72 M, HTN, HL, NICM S/P medtronic ICD 2014, now with normalization of EF who p /w BRBPR. GIB - ongoing mgm't per pmd/gi. s/p EGD 04/13 and colonoscopy 04/15. - s/p IVF/prbc's x 3. BP stable, IVF stopped 04/14. presumed NICM s/p medtronic ICD for primary prevention, EF now normalized. - Last icd check in March --> nl fn/lead parameters, no arrhythmias. - dilated NICM dx on 12/2014 echo. EF at the time was 28%. non-obs cad on cath at that time. In february, still had EF < 35% on HF therapy --> underwent ICD for primary prevention. - holding lasix/aldactone/toprol/losartan and norvasc in setting of GIB. s/p 250 cc IV bolus on 04/12 and subsequently IVF at 100 cc/hr in addition to prbc's x 3. - 04/14. BP now stable, would d/c IVF. ++++ ventricular ectopy, will resume low dose lopressor (25 tid). aggressive lyte repletion. appears euvolemic. - 04/15-. con't aggressive lyte repletion. bp stable on lopressor. If further improvement in bp, would add back low dose losartan next. echo shows normal systolic function. would hold digoxin (dig level here Ok). remains euvolemic off diuretics - daily weight, I/o's, bmp. prolonged qt - worsening prolongation in setting of hypokalemia. lyte repletion as discussed. would avoid qt prolonging drugs where possible. currently on protonix, levaquin and flagyl which all prolong qt - repeat ekg when k normalizes. CONCEPCION - improved s/p IVF. Also with obstructing kidney stone/mild left hydro on ct scan, eval/mgm't per pmd. HTN - meds as above HL - resume statin once stable.
--- NOTE | 2018-04-16 11:48 | PN ---
Progress Note, Physician History of Present Illness: No acute events overnight. Slight drop in hemoglobin without external signs bleeding. Semi-formed stools. No melena, hematochezia. Tolerating regular diet. Biopsy results pending. - Current Medication List Current Medications: Active Medications Acetaminophen (Tylenol -) 325 mg PO Q4H PRN PRN Reason: FEVER Last Admin: 04/14/18 23:31 Dose: 325 mg Amoxicillin/Clavulanate Potassium (Augmentin - 875mg Tablet) 1 tab PO BID@0800, 1730 [facility] Last Admin: 04/16/18 11:18 Dose: 1 tab Mesalamine (Asacol Hd -) 800 mg PO TID [facility] Last Admin: 04/16/18 06:16 Dose: 800 mg Metoprolol Tartrate (Lopressor -) 25 mg PO TID [facility] Last Admin: 04/16/18 06:16 Dose: 25 mg Metronidazole (Flagyl -) 250 mg PO TID [facility] Last Admin: 04/16/18 06:16 Dose: 250 mg Pantoprazole Sodium (Protonix Iv) 40 mg IVPUSH BID [facility] Last Admin: 04/16/18 11:18 Dose: 40 mg - Objective Vital Signs: Vital Signs Temperature 98.5 F 04/16/18 05:00 Pulse Rate 68 04/16/18 05:00 Respiratory Rate 20 04/16/18 05:00 Blood Pressure 125/75 04/16/18 05:00 O2 Sat by Pulse Oximetry (%) 96 04/15/18 21:00 Constitutional: Yes: Well Nourished, No Distress, Calm Gastrointestinal: Yes: Normal Bowel Sounds, Soft. No: Tenderness Neurological: Yes: Alert, Oriented Labs: CBC, BMP 04/16/18 05:30 04/16/18 05:30 INR, PTT INR 1.28 (0.82-1.09) H 04/11/18 20:40 Laboratory Last Values WBC 7.4 K/mm3 (4.0-10.0) D 04/16/18 05:30 RBC 2.57 M/mm3 (4.00-5.60) L 04/16/18 05:30 Hgb 7.9 GM/dL (11.7-16.9) L 04/16/18 05:30 Hct 22.6 % (35.4-49) L 04/16/18 05:30 MCV 88.0 fl (80-96) 04/16/18 05:30 MCH 30.9 pg (25.7-33.7) 04/16/18 05:30 MCHC 35.1 g/dl (32.0-35.9) 04/16/18 05:30 RDW 14.9 % (11.9-15.9) 04/16/18 05:30 Plt Count 206 K/MM3 (134-434) 04/16/18 05:30 MPV 8.0 fl (7.5-11.1) 04/16/18 05:30 Absolute Neuts (auto) 4.6 # 04/16/18 05:30 Neutrophils % 61.3 % (42.8-82.8) 04/16/18 05:30 Lymphocytes % 27.0 % (8-40) D 04/16/18 05:30 Monocytes % 10.4 % (3.8-10.2) H 04/16/18 05:30 Eosinophils % 0.9 % (0-4.5) 04/16/18 05:30 Basophils % 0.4 % (0-2.0) 04/16/18 05:30 Nucleated RBC % 0 % (0-0) 04/16/18 05:30 PT with INR 14.50 SEC (9.7-13.0) H 04/11/18 20:40 INR 1.28 (0.82-1.09) H 04/11/18 20:40 PTT (Actin FS) 25.1 SECONDS (26.9-34.4) L 04/11/18 20:40 Sodium 139 mmol/L (136-145) 04/16/18 05:30 Potassium 3.1 mmol/L (3.5-5.1) L 04/16/18 05:30 Chloride 111 mmol/L (98-107) H 04/16/18 05:30 Carbon Dioxide 20 mmol/L (21-32) L 04/16/18 05:30 Anion Gap 8 (8-16) 04/16/18 05:30 BUN 12 mg/dL (7-18) 04/16/18 05:30 Creatinine 1.2 mg/dL (0.7-1.3) 04/16/18 05:30 Creat Clearance w eGFR 59.51 (>60) 04/16/18 05:30 Random Glucose 87 mg/dL (74-106) 04/16/18 05:30 Calcium 7.2 mg/dL (8.5-10.1) L 04/16/18 05:30 Phosphorus 1.8 mg/dL (2.5-4.9) L 04/16/18 05:30 Magnesium 2.1 mg/dL (1.8-2.4) 04/16/18 05:30 Total Bilirubin 0.4 mg/dL (0.2-1.0) 04/16/18 05:30 AST 41 U/L (15-37) H D 04/16/18 05:30 ALT 38 U/L (12-78) D 04/16/18 05:30 Alkaline Phosphatase 43 U/L (45-117) L 04/16/18 05:30 Creatine Kinase 63 IU/L (39-308) 04/12/18 17:54 Troponin I 0.10 ng/ml (0.00-0.05) H 04/12/18 17:54 Total Protein 6.3 g/dl (6.4-8.2) L 04/16/18 05:30 Albumin 1.4 g/dl (3.4-5.0) L 04/16/18 05:30 Digoxin 0.1234 ng/ml (0.8-2.0) L 04/11/18 20:40 Blood Type B POSITIVE 04/16/18 08:05 Antibody Screen Negative 04/16/18 08:05 Crossmatch See Detail 04/16/18 08:05 Problem List - Problems (1) Colitis Code(s): K52.9 - NONINFECTIVE GASTROENTERITIS AND COLITIS, UNSPECIFIED (2) Colon, diverticulosis Code(s): K57.30 - DVRTCLOS OF LG INT W/O PERFORATION OR ABSCESS W/O BLEEDING (3) Anemia Code(s): D64.9 - ANEMIA, UNSPECIFIED Assessment/Plan Continue current care. Await biopsy results. Diverticulosis associated colitis versus IBD.
--- NOTE | 2018-04-16 13:16 | PN ---
Physical Exam: SUBJECTIVE: Patient seen and examined. No bleeding per rectum. Had up to 2 loose greenish colored bowel movements overnight. No fever/no abdominal pain. Had successful colonsocopy now on antibiotics for diverticulitis. OBJECTIVE: Vital Signs Period Temp Pulse Resp BP Sys/Bentley Pulse Ox Last 24 Hr 97.8 F-98.5 F 68-84 19-20 119-131/53-75 96-96 Vital Signs Temp 98.5 F 04/16/18 10:00 Pulse 68 04/16/18 10:00 Resp 20 04/16/18 10:00 BP 125/75 04/16/18 10:00 Pulse Ox 96 04/16/18 10:00 Intake & Output 04/15/18 04/16/18 04/16/18 23:59 11:59 23:59 Intake Total 300 210 Balance 300 210 Weight 88.507 kg Intake: IV 10 SALINE LOCK 10 Oral 300 200 Other: Voiding Method Toilet Toilet # Unmeasured Voids Void 1 Bowel Movement Yes Weight Measurement Method Standing Scale Intake & Output 04/13/18 04/14/18 04/15/18 04/16/18 23:59 23:59 23:59 23:59 Intake Total 1920 1020 1300 210 Output Total 1250 Balance 670 1020 1300 210 Weight 85.638 kg 88.507 kg GENERAL: The patient is awake, alert, and fully oriented, in no acute distress. Sating up to 98% on RA LUNGS: Breath sounds equal, clear to auscultation bilaterally HEART: Regular rate and rhythm, S1, S2 without murmur ABDOMEN: Soft, nontender, nondistended, normoactive bowel sounds EXTREMITIES: 2+ pulses, warm, well-perfused, no edema. NEUROLOGICAL: Cranial nerves II through XII grossly intact. Normal speech, gait not observed. Laboratory Results - last 24 hr 04/11/18 04/16/18 04/16/18 20:40 05:30 05:30 WBC 7.4 D RBC 2.57 L Hgb 7.9 L Hct 22.6 L MCV 88.0 MCH 30.9 MCHC 35.1 RDW 14.9 Plt Count 206 MPV 8.0 Absolute Neuts (auto) 4.6 Neutrophils % 61.3 Lymphocytes % 27.0 D Monocytes % 10.4 H Eosinophils % 0.9 Basophils % 0.4 Nucleated RBC % 0 Sodium 139 Potassium 3.1 L Chloride 111 H Carbon Dioxide 20 L Anion Gap 8 BUN 12 Creatinine 1.2 Creat Clearance w eGFR 59.51 Random Glucose 87 Calcium 7.2 L Phosphorus 1.8 L Magnesium 2.1 Total Bilirubin 0.4 AST 41 H D ALT 38 D Alkaline Phosphatase 43 L Total Protein 6.3 L Albumin 1.4 L Blood Type B POSITIVE Antibody Screen Negative Crossmatch See Detail 04/16/18 08:05 WBC RBC Hgb Hct MCV MCH MCHC RDW Plt Count MPV Absolute Neuts (auto) Neutrophils % Lymphocytes % Monocytes % Eosinophils % Basophils % Nucleated RBC % Sodium Potassium Chloride Carbon Dioxide Anion Gap BUN Creatinine Creat Clearance w eGFR Random Glucose Calcium Phosphorus Magnesium Total Bilirubin AST ALT Alkaline Phosphatase Total Protein Albumin Blood Type B POSITIVE Antibody Screen Negative Crossmatch See Detail Active Medications Generic Name Dose Route Start Last Admin Trade Name Freq PRN Reason Stop Dose Admin Acetaminophen 325 mg 04/14/18 23:24 04/14/18 23:31 Tylenol - PO 325 mg Q4H PRN Administration FEVER Amoxicillin/Clavulanate Potassium 1 tab 04/16/18 08:00 04/16/18 11:18 Augmentin - 875mg Tablet PO 1 tab BID@0800,1730 [facility] Administration Mesalamine 800 mg 04/15/18 14:00 04/16/18 06:16 Asacol Hd - PO 800 mg TID [facility] Administration Metoprolol Tartrate 25 mg 04/14/18 11:23 04/16/18 06:16 Lopressor - PO 25 mg TID [facility] Administration Metronidazole 250 mg 04/15/18 14:00 04/16/18 06:16 Flagyl - PO 250 mg TID [facility] Administration Pantoprazole Sodium 40 mg 04/12/18 03:00 04/16/18 11:18 Protonix Iv IVPUSH 40 mg BID [facility] Administration Ambulatory Orders Amlodipine Besylate 10 mg PO DAILY 04/04/18 Digoxin 125 mcg PO DAILY 04/04/18 Folic Acid 2 mg PO DAILY 04/04/18 Furosemide 20 mg PO DAILY 04/04/18 Losartan Potassium 100 mg PO DAILY 04/04/18 Metoprolol Succinate [Toprol Xl -] 50 mg PO BID 04/04/18 Simvastatin 20 mg PO DAILY 04/04/18 Spironolactone 25 mg PO DAILY 05/26/18 Current Medications Acetaminophen (Tylenol -) 325 mg PO Q4H PRN PRN Reason: FEVER Last Admin: 04/14/18 23:31 Dose: 325 mg Amoxicillin/Clavulanate Potassium (Augmentin - 875mg Tablet) 1 tab PO BID@0800, 1730 [facility] [place] Last Admin: 04/16/18 11:18 Dose: 1 tab Mesalamine (Asacol Hd -) 800 mg PO TID [facility] Last Admin: 04/16/18 06:16 Dose: 800 mg Metoprolol Tartrate (Lopressor -) 25 mg PO TID [facility] Last Admin: 04/16/18 06:16 Dose: 25 mg Metronidazole (Flagyl -) 250 mg PO TID [facility] Last Admin: 04/16/18 06:16 Dose: 250 mg Pantoprazole Sodium (Protonix Iv) 40 mg IVPUSH BID [facility] Last Admin: 04/16/18 11:18 Dose: 40 mg ECHO 04/14/18: Technically limited study. LV mildly dialted -LVEF grossly N-55-60% . E?A reversal consistent but not diagnostic of poor LV compliance. RV is not well visualized. RV is mild-mod dilated. Pacemaker lead in RV. RV function cannot be assessed due to poor image quality. LA is mildly dilated. RA not well visualized. Mild aortic sclerosis. Mild to moderate annular calcification. Mild MR, mild TR, mild Pulm HTN. RV systolic pressure is elevated at 40-50mmhg. EGD-hiatal hernia colonoscopy 04/15/18: severe diverticulosis with inflammation and purulent discharge. + ulcerated polyps. ASSESSMENT/PLAN: 72yo M PMHx of HTN, HLD, Non Ischemic cardiomyopathy with CHF, s/p defibrillator implant with hospitalization last week for same complaint of BRBPR after several episodes of diarrhea. Anemia Hgb dropped from 8.3 to 7.9 No obvious bleeding noted during colonoscopy Repeat CBC -stat May benefit from 1uPRBCs if running low in am Diverticulitis/ diverticulosis with ulcerated polyps --noted on CT abd previous admission and on colonosocopy --ID-Dr Engel consulted -- flagyl --mesalamine --Augmentin -Follow biopsy results from colonoscopy Symptomatic anemia 2/2 to GI Bleed --No current brice bleed or melena - EGD-hiatal hernia --Protonix 40mg BID --GI consulted; recs appreciated --Received 3UPRBC --s/p colonoscopy -diverticulitis -- flagyl and Augmentin CONCEPCION --Most likely from hypoperfusion to the kidneys, could also be due to hydronephrosis with 8mm stone --Will monitor for now and avoid nephrotoxic agents --Urology consult - S/p 3UPRBCs, --s/p fluids, cr- trending down HTN and NICM hx -Pt insists he has no cardiac problem and has an outpt doc- Dr Ortega -Cardio consult- Dr Pack apprec recs -Continue metoprolol 25mg bid -ECHO- see above Elevated Troponin --0.14 --Demand ischemia most likely again due to anemia and increased oxygen demand Hypokalemia --Continuous KCL repletion as needed FEN: Fluids: Replete lytes as needed PPX: DVT - SCDs only GI - Protonix 40mg BID IVP Dispo: Cont med surg Visit type - Emergency Visit Emergency Visit: Yes ED Registration Date: 04/12/18 Care time: The patient presented to the Emergency Department on the above date and was hospitalized for further evaluation of their emergent condition. - New Patient This patient is new to me today: No - Critical Care Critical Care patient: No - Discharge Referral Referred to [facility] Med P.C.: No
[2018-04-16 13:22] LABS: HEMATOCRIT 24.8 % (35.4-49); HEMOGLOBIN 8.5 GM/dL (11.7-16.9); MCH 30.3 pg (25.7-33.7); MCHC 34.3 g/dl (32.0-35.9); MEAN CELL VOLUME 88.4 fl (80-96); MEAN PLT VOLUME 8.2 fl (7.5-11.1); PLATELET COUNT 229 K/MM3 (134-434); RBC 2.81 M/mm3 (4.00-5.60); RDW 15.1 % (11.9-15.9); WHITE BLOOD COUNT 7.7 K/mm3 (4.0-10.0)
--- NOTE | 2018-04-16 13:27 | PN ---
Progress Note (short form) - Note Progress Note: Upper endoscopy biopsy results noted Problem List - Problems (1) Colitis Code(s): K52.9 - NONINFECTIVE GASTROENTERITIS AND COLITIS, UNSPECIFIED (2) Colon, diverticulosis Code(s): K57.30 - DVRTCLOS OF LG INT W/O PERFORATION OR ABSCESS W/O BLEEDING (3) Anemia Code(s): D64.9 - ANEMIA, UNSPECIFIED
[2018-04-16] MEDS ORDERED: PT OWN MED DRAWER 7, Y5N ONE ×2 (16:09→16:14)
[2018-04-16] MEDS: NAPH,MB-DB/K PH,MBDB POWDER PACKET PO SCH ×2 (16:21→22:14)
--- NOTE | 2018-04-16 17:45 | PN ---
Progress Note, Physician History of Present Illness: stable no new issues - Current Medication List Current Medications: Active Medications Acetaminophen (Tylenol -) 325 mg PO Q4H PRN PRN Reason: FEVER Last Admin: 04/14/18 23:31 Dose: 325 mg Amoxicillin/Clavulanate Potassium (Augmentin - 875mg Tablet) 1 tab PO BID@0800, 1730 [facility] Last Admin: 04/16/18 16:46 Dose: 1 tab Mesalamine (Asacol Hd -) 800 mg PO TID [facility] Last Admin: 04/16/18 16:21 Dose: 800 mg Metoprolol Tartrate (Lopressor -) 25 mg PO TID [facility] Last Admin: 04/16/18 16:21 Dose: 25 mg Metronidazole (Flagyl -) 250 mg PO TID [facility] Last Admin: 04/16/18 16:21 Dose: 250 mg Pantoprazole Sodium (Protonix Iv) 40 mg IVPUSH BID [facility] Last Admin: 04/16/18 11:18 Dose: 40 mg Potassium Phos/Sodium Phos (Phos-Nak Packet -) 1 packet PO BID [facility] Last Admin: 04/16/18 16:21 Dose: 1 packet - Objective Vital Signs: Vital Signs Temperature 97.8 F 04/16/18 14:00 Pulse Rate 74 04/16/18 14:00 Respiratory Rate 20 04/16/18 10:00 Blood Pressure 138/69 04/16/18 14:00 O2 Sat by Pulse Oximetry (%) 96 04/16/18 10:00 Constitutional: Yes: No Distress, Calm Cardiovascular: Yes: Regular Rate and Rhythm Respiratory: Yes: Regular, CTA Bilaterally Gastrointestinal: Yes: Normal Bowel Sounds, Soft Musculoskeletal: Yes: WNL Extremities: Yes: WNL Neurological: Yes: Alert, Oriented Psychiatric: Yes: Alert, Oriented Labs: CBC, BMP 04/16/18 12:50 04/16/18 05:30 INR, PTT INR 1.28 (0.82-1.09) H 04/11/18 20:40 Assessment/Plan dirrhoea diverticulitis bleeding p/r abd pain plan instead of levaquin we will give him augmentin rest contine falgyl
[2018-04-17 05:47] LABS: BASO % 0.9 % (0-2.0); EOS % 1.4 % (0-4.5); HEMATOCRIT 25.4 % (35.4-49); HEMOGLOBIN 8.7 GM/dL (11.7-16.9); LYMPH % 32.8 % (8-40); MCH 30.3 pg (25.7-33.7); MCHC 34.3 g/dl (32.0-35.9); MEAN CELL VOLUME 88.3 fl (80-96); MEAN PLT VOLUME 7.9 fl (7.5-11.1); MONO % 8.4 % (3.8-10.2); NEUT % 56.5 % (42.8-82.8); PLATELET COUNT 253 K/MM3 (134-434); RBC 2.88 M/mm3 (4.00-5.60); RDW 15.5 % (11.9-15.9)
[2018-04-17 06:14] LABS: ALBUMIN 1.5 g/dl (3.4-5.0); ALK PHOS 47 U/L (45-117); ANION GAP 7 (8-16); BILIRUBIN,TOTAL 0.3 mg/dL (0.2-1.0); BLOOD UREA NITROGEN 9 mg/dL (7-18); CALCIUM 7.4 mg/dL (8.5-10.1); CHLORIDE 112 mmol/L (98-107); CO2 22 mmol/L (21-32); CREATININE 1.2 mg/dL (0.7-1.3); GLUCOSE,RANDOM 92 mg/dL (74-106); MAGNESIUM 1.8 mg/dL (1.8-2.4); POTASSIUM 3.3 mmol/L (3.5-5.1); SGOT/AST 32 U/L (15-37); SGPT/ALT 35 U/L (12-78); SODIUM 141 mmol/L (136-145); TOT PROT 6.9 g/dl (6.4-8.2)
[2018-04-17] MEDS: MESALAMINE 800 MG TABLET.DR PO SCH ×2 (06:41→13:49)
[2018-04-17] MEDS: metroNIDAZOLE 250 MG TABLET PO SCH ×2 (06:42→13:50)
[2018-04-17] MEDS: METOPROLOL TARTRATE 25 MG TABLET (FP) PO SCH ×2 (06:42→13:49)
[2018-04-17] MEDS ORDERED: NAPH,MB-DB/K PH,MBDB POWDER PACKET PO ONE (09:00)
[2018-04-17] MEDS ORDERED: POTASSIUM CHLORIDE ORAL LIQUID 20 MEQ/15 ML PO ONE (09:30)
[2018-04-17] MEDS: AMOX TR/POT CLAV 875MG/125MG TABLETS (FP) PO SCH (09:32)
[2018-04-17] MEDS: PANTOPRAZOLE SODIUM 40 MG VIAL IVPUSH SCH (09:32)
[2018-04-17] MEDS ORDERED: NAPH,MB-DB/K PH,MBDB POWDER PACKET PO SCH ×2 (09:55→10:00)
--- NOTE | 2018-04-17 11:26 | PN ---
Progress Note (short form) - Note Progress Note: CC: NICM S: no cp sob palps dizzy cards/EP: Dr. Irby at [facility] Current Medications Generic Name Dose Route Start Last Admin Trade Name Freq PRN Reason Stop Dose Admin Acetaminophen 325 mg 04/14/18 23:24 04/14/18 23:31 Tylenol - PO 325 mg Q4H PRN Administration FEVER Amoxicillin/Clavulanate Potassium 1 tab 04/16/18 08:00 04/17/18 09:32 Augmentin - 875mg Tablet PO 1 tab BID@0800,1730 FRANCISCO JAVIER Administration Mesalamine 800 mg 04/15/18 14:00 04/17/18 06:41 Asacol Hd - PO 800 mg TID FRANCISCO JAVIER Administration Metoprolol Tartrate 25 mg 04/14/18 11:23 04/17/18 06:42 Lopressor - PO 25 mg TID FRANCISCO JAVIER Administration Metronidazole 250 mg 04/15/18 14:00 04/17/18 06:42 Flagyl - PO 250 mg TID FRANCISCO JAVIER Administration Pantoprazole Sodium 40 mg 04/12/18 03:00 04/17/18 09:32 Protonix Iv IVPUSH 40 mg BID FRANCISCO JAVIER Administration Potassium Phos/Sodium Phos 2 packet 04/17/18 09:55 04/17/18 11:23 Phos-Nak Packet - PO 04/17/18 22:01 Not Given BID [facility] Vital Signs - 24 hr 04/16/18 04/16/18 04/16/18 14:00 17:00 21:00 Temperature 97.8 F 97.9 F Pulse Rate 74 75 Respiratory 20 20 Rate Blood Pressure 138/69 130/48 O2 Sat by Pulse 99 Oximetry (%) 04/16/18 04/17/18 04/17/18 22:00 02:00 06:00 Temperature 99.0 F 99.3 F 98.6 F Pulse Rate 74 69 60 Respiratory 20 20 20 Rate Blood Pressure 136/72 126/71 129/65 O2 Sat by Pulse Oximetry (%) NAD, calm JVD flat, neck supple ctab, nl effort rrr nl s1, s2. no mrg + bs soft nt nd ext with trace edema, no c/c no jaundice, diaphoresis aaox3 CBC, BMP 04/17/18 05:27 04/17/18 05:27 EKG: SR with pvc, lad. bline prolonged qt, no acute ischemic changes. EKG: SR with frequent pvc's. leftward axis. prolonged qtc tele: sr, occ pvcs echo 04/2018: 1+ lve. EF 55-60%. E/A reversal. mild-mod RVE. unable to assess rv function. 1+ lae. RA not well seen. mild-mod mac, 1+ mr. cxr: wnl colonoscopy 04/15/18: severe diverticulosis with inflammation and purulent discharge. + ulcerated polyps. EGD 04/13/18: 4 cm hital hernia w/o signs of inflammation in the esophagus, otherwise normal EGD abd u/s 04/2018: lt nephrolithiasis, mod hydro (inc from March). CT a/p 03/2018: bibasilar atelectasis. hepatomegaly. right adrenal mass. obstructing kidney stone with mild left hydro. fat stranding suggestive of mild acute diverticulitis. outpatient cardiac meds: toprol 50, losartan 100, aldactone 25, dig 125, lasix 20, norvasc 10, simva 20, no asa ASSESSMENT/PLAN: 72 M, HTN, HL, NICM S/P medtronic ICD 2014, now with normalization of EF who p /w BRBPR. GIB - ongoing mgm't per pmd/gi. s/p EGD 04/13 and colonoscopy 04/15. - s/p IVF/prbc's x 3. BP stable, IVF stopped 04/14. presumed NICM s/p medtronic ICD for primary prevention, EF now normalized. - Last icd check in March --> nl fn/lead parameters, no arrhythmias. - dilated NICM dx on 12/2014 echo. EF at the time was 28%. non-obs cad on cath at that time. In february, still had EF < 35% on HF therapy --> underwent ICD for primary prevention. - holding lasix/aldactone/toprol/losartan and norvasc in setting of GIB. s/p 250 cc IV bolus on 04/12 and subsequently IVF at 100 cc/hr in addition to prbc's x 3. - 04/14. BP now stable, would d/c IVF. ++++ ventricular ectopy, will resume low dose lopressor (25 tid). aggressive lyte repletion. appears euvolemic. - 04/15-. con't aggressive lyte repletion. bp stable on lopressor. If further improvement in bp, would add back low dose losartan next. echo shows normal systolic function. would hold digoxin (dig level here Ok). remains euvolemic off diuretics -04/17: vol stable, bp improved, hgb improved. would resume home cardiac meds upon dc: toprol 50, losartan 100, aldactone 25, dig 125, lasix 20, norvasc 10, simva 20 CONCEPCION - improved s/p IVF. HTN - meds as above HL - resume statin cadiac mendoza stable for dc
--- NOTE | 2018-04-17 13:12 | PN ---
Progress Note, Physician History of Present Illness: Comfortable. No acute events overnight. Tolerating regular diet. Pain-free. Colon biopsy results pending. - Current Medication List Current Medications: Active Medications Acetaminophen (Tylenol -) 325 mg PO Q4H PRN PRN Reason: FEVER Last Admin: 04/14/18 23:31 Dose: 325 mg Amoxicillin/Clavulanate Potassium (Augmentin - 875mg Tablet) 1 tab PO BID@0800, 1730 [facility] Last Admin: 04/17/18 09:32 Dose: 1 tab Mesalamine (Asacol Hd -) 800 mg PO TID [facility] Last Admin: 04/17/18 06:41 Dose: 800 mg Metoprolol Tartrate (Lopressor -) 25 mg PO TID [facility] Last Admin: 04/17/18 06:42 Dose: 25 mg Metronidazole (Flagyl -) 250 mg PO TID [facility] Last Admin: 04/17/18 06:42 Dose: 250 mg Pantoprazole Sodium (Protonix Iv) 40 mg IVPUSH BID [facility] Last Admin: 04/17/18 09:32 Dose: 40 mg Potassium Phos/Sodium Phos (Phos-Nak Packet -) 2 packet PO BID [facility] Stop: 04/17/18 22:01 Last Admin: 04/17/18 11:23 Dose: Not Given - Objective Vital Signs: Vital Signs Temperature 98.6 F 04/17/18 06:00 Pulse Rate 60 04/17/18 06:00 Respiratory Rate 20 04/17/18 06:00 Blood Pressure 129/65 04/17/18 06:00 O2 Sat by Pulse Oximetry (%) 99 04/16/18 21:00 Constitutional: Yes: No Distress, Calm Gastrointestinal: Yes: Normal Bowel Sounds, Soft. No: Melena, Tenderness, Tenderness, Epigastrium, Tenderness, Rebound, Vomiting Neurological: Yes: Alert, Oriented Labs: CBC, BMP 04/17/18 05:27 04/17/18 05:27 INR, PTT INR 1.28 (0.82-1.09) H 04/11/18 20:40 Laboratory Last Values WBC 7.0 K/mm3 (4.0-10.0) 04/17/18 05:27 RBC 2.88 M/mm3 (4.00-5.60) L 04/17/18 05:27 Hgb 8.7 GM/dL (11.7-16.9) L 04/17/18 05:27 Hct 25.4 % (35.4-49) L 04/17/18 05:27 MCV 88.3 fl (80-96) 04/17/18 05:27 MCH 30.3 pg (25.7-33.7) 04/17/18 05:27 MCHC 34.3 g/dl (32.0-35.9) 04/17/18 05:27 RDW 15.5 % (11.9-15.9) 04/17/18 05:27 Plt Count 253 K/MM3 (134-434) 04/17/18 05:27 MPV 7.9 fl (7.5-11.1) 04/17/18 05:27 Absolute Neuts (auto) 3.9 # 04/17/18 05:27 Neutrophils % 56.5 % (42.8-82.8) 04/17/18 05:27 Lymphocytes % 32.8 % (8-40) D 04/17/18 05:27 Monocytes % 8.4 % (3.8-10.2) 04/17/18 05:27 Eosinophils % 1.4 % (0-4.5) 04/17/18 05:27 Basophils % 0.9 % (0-2.0) 04/17/18 05:27 Nucleated RBC % 0 % (0-0) 04/17/18 05:27 PT with INR 14.50 SEC (9.7-13.0) H 04/11/18 20:40 INR 1.28 (0.82-1.09) H 04/11/18 20:40 PTT (Actin FS) 25.1 SECONDS (26.9-34.4) L 04/11/18 20:40 Sodium 141 mmol/L (136-145) 04/17/18 05:27 Potassium 3.3 mmol/L (3.5-5.1) L 04/17/18 05:27 Chloride 112 mmol/L (98-107) H 04/17/18 05:27 Carbon Dioxide 22 mmol/L (21-32) 04/17/18 05:27 Anion Gap 7 (8-16) L 04/17/18 05:27 BUN 9 mg/dL (7-18) D 04/17/18 05:27 Creatinine 1.2 mg/dL (0.7-1.3) 04/17/18 05:27 Creat Clearance w eGFR 59.51 (>60) 04/17/18 05:27 Random Glucose 92 mg/dL (74-106) 04/17/18 05:27 Calcium 7.4 mg/dL (8.5-10.1) L 04/17/18 05:27 Phosphorus 2.0 mg/dL (2.5-4.9) L 04/17/18 05:27 Magnesium 1.8 mg/dL (1.8-2.4) 04/17/18 05:27 Total Bilirubin 0.3 mg/dL (0.2-1.0) D 04/17/18 05:27 AST 32 U/L (15-37) D 04/17/18 05:27 ALT 35 U/L (12-78) 04/17/18 05:27 Alkaline Phosphatase 47 U/L (45-117) 04/17/18 05:27 Creatine Kinase 63 IU/L (39-308) 04/12/18 17:54 Troponin I 0.10 ng/ml (0.00-0.05) H 04/12/18 17:54 Total Protein 6.9 g/dl (6.4-8.2) 04/17/18 05:27 Albumin 1.5 g/dl (3.4-5.0) L 04/17/18 05:27 Digoxin 0.1234 ng/ml (0.8-2.0) L 04/11/18 20:40 Blood Type B POSITIVE 04/16/18 08:05 Antibody Screen Negative 04/16/18 08:05 Crossmatch See Detail 04/16/18 08:05 Problem List - Problems (1) Colitis Code(s): K52.9 - NONINFECTIVE GASTROENTERITIS AND COLITIS, UNSPECIFIED (2) Colon, diverticulosis Code(s): K57.30 - DVRTCLOS OF LG INT W/O PERFORATION OR ABSCESS W/O BLEEDING (3) Anemia Code(s): D64.9 - ANEMIA, UNSPECIFIED Assessment/Plan Diverticulosis associated colitis versus IBD. Awaiting for biopsy results. Okay to discharge patient from GI point of view with follow-up within one week. Discussed with the patient in detail. He verbalized understanding and agreed with the plan.
--- NOTE | 2018-04-17 14:22 | PN ---
Teaching Attending Note Name of Resident: Agnes Velasquez ATTENDING PHYSICIAN STATEMENT I saw and evaluated the patient. I reviewed the resident's note and discussed the case with the resident. I agree with the resident's findings and plan as documented with exceptions below. SUBJECTIVE: Patient seen and examined, no complaints. NO further bleed or dark stools overnight. Eating well. OBJECTIVE: Vital Signs Period Temp Pulse Resp BP Sys/Bentley Pulse Ox Last 24 Hr 97.9 F-99.3 F 60-75 20-20 126-136/48-72 99 Intake & Output 04/14/18 04/15/18 04/16/18 04/17/18 23:59 23:59 23:59 23:59 Intake Total 1020 1300 720 600 Output Total 400 Balance 1020 1300 720 200 Weight 188 lb 12.8 oz 195 lb 2 oz 192 lb 12.8 oz General: sitting in bed in no acute distress Chest: CTAB, no rales or wheezing abdomen:soft, NT Extremities: no edema Home Medications Medication Instructions Recorded Amlodipine Besylate 10 mg PO DAILY 04/04/18 Digoxin 125 mcg PO DAILY 04/04/18 Folic Acid 2 mg PO DAILY 04/04/18 Furosemide 20 mg PO DAILY 04/04/18 Losartan Potassium 100 mg PO DAILY 04/04/18 Metoprolol Succinate [Toprol XL -] 50 mg PO BID 04/04/18 Simvastatin 20 mg PO DAILY 04/04/18 Spironolactone 25 mg PO DAILY 04/04/18 Amox-Tr/K Cl [Augmentin 875-125mg 1 tab PO BID@0800,1730 6 Days #12 04/17/18 Tablet -] tablet Mesalamine [Asacol HD -] 800 mg PO TID 30 Days #90 tablet. 04/17/18 metroNIDAZOLE [Flagyl -] 250 mg PO TID 5 Days #15 tablet 04/17/18 Active Medications Acetaminophen (Tylenol -) 325 mg PO Q4H PRN PRN Reason: FEVER Last Admin: 04/14/18 23:31 Dose: 325 mg Amoxicillin/Clavulanate Potassium (Augmentin - 875mg Tablet) 1 tab PO BID@0800, 1730 [facility] Last Admin: 04/17/18 09:32 Dose: 1 tab Mesalamine (Asacol Hd -) 800 mg PO TID [facility] Last Admin: 04/17/18 13:49 Dose: 800 mg Metoprolol Tartrate (Lopressor -) 25 mg PO TID [facility] Last Admin: 04/17/18 13:49 Dose: 25 mg Metronidazole (Flagyl -) 250 mg PO TID [facility] Last Admin: 04/17/18 13:50 Dose: 250 mg Pantoprazole Sodium (Protonix Iv) 40 mg IVPUSH BID [facility] Last Admin: 04/17/18 09:32 Dose: 40 mg Potassium Phos/Sodium Phos (Phos-Nak Packet -) 2 packet PO BID [facility] Stop: 04/17/18 22:01 Last Admin: 04/17/18 11:23 Dose: Not Given Abnormal Lab Results 04/17/18 04/17/18 05:27 05:27 RBC 2.88 L Hgb 8.7 L Hct 25.4 L Potassium 3.3 L Chloride 112 H Anion Gap 7 L Calcium 7.4 L Phosphorus 2.0 L Albumin 1.5 L Microbiology 04/14/18 10:30 Stool Clostridium difficile Antigen (FERNANDA) - Final 04/14/18 10:30 Stool Clostridium difficile Toxin Assay - Final ASSESSMENT AND PLAN: 72yo M with PMH HTN. dyslipidemia, CHF s/p AICD placement presented to the ER for BRBPR was seen last week in the hospital -Acute on chronic GI bleed, EGD neg, Colonoscopy with colitis/pseudopolyps/ diverticular disease -Likely NICM, no recent echo available, -Elevated Troponin, suspect demand induced from anemia/GI bleed -s/p AICD -Acute blood loss anemia s/p 3 units PRBC -CONCEPCION, likely from hypovolumia +/- kidney stone with obstruction -Hypokalemia -Hypocalcemia -Prolonged QTc -HTN -Adrenal mass on recent admission CT A/P Plan: Doing well, no further bleed. H/h stable. Discussed with GI, outpatient follow up in 1 week. Prelim biopsy with inflammation. Patient informed to follow up final results with Dr. Mercer. Augmentin/flagyl for additional 5 days. Also patient has been informed of the adrenal mass, need for MRI and kidney stone with hydronephrosis and need for follow up with urologist. Patient prefers to follow outpatient and understands to seek care if any new pain, fevers, urinary symptoms or new concerns noted. Discussed with Dr. Perez, resume home cardiac meds. Outpatient CBC, BMP monitoring d/c home today, All follow up instructions have been discussed in detail with patient and all questions answered.
--- NOTE | 2018-04-17 14:35 | PN ---
Progress Note, Physician History of Present Illness: doing well no complaints no abd pain - Current Medication List Current Medications: Active Medications Acetaminophen (Tylenol -) 325 mg PO Q4H PRN PRN Reason: FEVER Last Admin: 04/14/18 23:31 Dose: 325 mg Amoxicillin/Clavulanate Potassium (Augmentin - 875mg Tablet) 1 tab PO BID@0800, 1730 [facility] Last Admin: 04/17/18 09:32 Dose: 1 tab Mesalamine (Asacol Hd -) 800 mg PO TID [facility] Last Admin: 04/17/18 13:49 Dose: 800 mg Metoprolol Tartrate (Lopressor -) 25 mg PO TID [facility] Last Admin: 04/17/18 13:49 Dose: 25 mg Metronidazole (Flagyl -) 250 mg PO TID [facility] Last Admin: 04/17/18 13:50 Dose: 250 mg Pantoprazole Sodium (Protonix Iv) 40 mg IVPUSH BID [facility] Last Admin: 04/17/18 09:32 Dose: 40 mg Potassium Phos/Sodium Phos (Phos-Nak Packet -) 2 packet PO BID [facility] Stop: 04/17/18 22:01 Last Admin: 04/17/18 11:23 Dose: Not Given - Objective Vital Signs: Vital Signs Temperature 98.6 F 04/17/18 06:00 Pulse Rate 60 04/17/18 06:00 Respiratory Rate 20 04/17/18 06:00 Blood Pressure 129/65 04/17/18 06:00 O2 Sat by Pulse Oximetry (%) 99 04/16/18 21:00 Constitutional: Yes: No Distress, Calm Cardiovascular: Yes: Regular Rate and Rhythm Respiratory: Yes: Regular, CTA Bilaterally Gastrointestinal: Yes: Normal Bowel Sounds, Soft Musculoskeletal: Yes: WNL Extremities: Yes: WNL Neurological: Yes: Alert, Oriented Psychiatric: Yes: Alert, Oriented Labs: CBC, BMP 04/17/18 05:27 04/17/18 05:27 INR, PTT INR 1.28 (0.82-1.09) H 04/11/18 20:40 Assessment/Plan dirrhoea diverticulitis bleeding p/r plan change patient to augmentin 500 mg po bid for 7 days with flagyl 500 mg every 8 hourly
--- NOTE | 2018-04-17 14:45 | DS ---
Physical Exam: SUBJECTIVE: Patient seen and examined. No more bleeding per rectum. H&H stable and did not require transfusion. Pt wants to go home. Is willing to follow up with Dr Mercer as an outpatient. OBJECTIVE: Vital Signs Period Temp Pulse Resp BP Sys/Bentley Pulse Ox Last 24 Hr 97.9 F-99.3 F 60-75 20-20 126-136/48-72 99 PHYSICAL EXAM GENERAL: The patient is awake, alert, and fully oriented, in no acute distress. LUNGS: Breath sounds equal, clear to auscultation bilaterally HEART: Regular rate and rhythm, S1, S2 without murmur. ABDOMEN: Soft, nontender, nondistended, normoactive bowel sounds EXTREMITIES: 2+ pulses, warm, well-perfused, no edema. NEUROLOGICAL: AAOx3. No facial droop. Normal tone and strength globally. Normal speech, gait not observed. LABS Laboratory Results - last 24 hr 04/17/18 04/17/18 05:27 05:27 WBC 7.0 RBC 2.88 L Hgb 8.7 L Hct 25.4 L MCV 88.3 MCH 30.3 MCHC 34.3 RDW 15.5 Plt Count 253 MPV 7.9 Absolute Neuts (auto) 3.9 Neutrophils % 56.5 Lymphocytes % 32.8 D Monocytes % 8.4 Eosinophils % 1.4 Basophils % 0.9 Nucleated RBC % 0 Sodium 141 Potassium 3.3 L Chloride 112 H Carbon Dioxide 22 Anion Gap 7 L BUN 9 D Creatinine 1.2 Creat Clearance w eGFR 59.51 Random Glucose 92 Calcium 7.4 L Phosphorus 2.0 L Magnesium 1.8 Total Bilirubin 0.3 D AST 32 D ALT 35 Alkaline Phosphatase 47 Total Protein 6.9 Albumin 1.5 L Ambulatory Orders Amlodipine Besylate 10 mg PO DAILY 04/04/18 Digoxin 125 mcg PO DAILY 04/04/18 Folic Acid 2 mg PO DAILY 04/04/18 Furosemide 20 mg PO DAILY 04/04/18 Losartan Potassium 100 mg PO DAILY 04/04/18 Metoprolol Succinate [Toprol XL -] 50 mg PO BID 04/04/18 Simvastatin 20 mg PO DAILY 04/04/18 Spironolactone 25 mg PO DAILY 04/04/18 Amoxicillin/Potassium Clav [Augmentin 875-125 Tablet] 1 each PO BID 5 Days #10 tablet 04/17/18 Mesalamine [Asacol HD -] 800 mg PO TID 30 Days #90 tablet. 04/17/18 Mesalamine [Lialda] 1.2 gm PO BID #60 tablet. 04/17/18 Pantoprazole Sodium [Protonix] 40 mg PO DAILY #14 tablet. 04/17/18 metroNIDAZOLE [Flagyl -] 250 mg PO TID #15 tablet 04/17/18 ECHO 04/14/18: Technically limited study. LV mildly dialted -LVEF grossly N-55-60% . E?A reversal consistent but not diagnostic of poor LV compliance. RV is not well visualized. RV is mild-mod dilated. Pacemaker lead in RV. RV function cannot be assessed due to poor image quality. LA is mildly dilated. RA not well visualized. Mild aortic sclerosis. Mild to moderate annular calcification. Mild MR, mild TR, mild Pulm HTN. RV systolic pressure is elevated at 40-50mmhg. EGD-hiatal hernia colonoscopy 04/15/18: severe diverticulosis with inflammation and purulent discharge. + ulcerated polyps. Colonoscopy biopsy reported: D/W Pathology- no evidence of malignancy. Inflammatory cells seen. HOSPITAL COURSE: Date of Admission:04/12/18 Date of Discharge: 04/17/18 72yo M PMHx of HTN, HLD, Non Ischemic cardiomyopathy with CHF, s/p defibrillator implant with hospitalization last week for same complaint of BRBPR after several episodes of diarrhea. Pt presented with symptomatic anemia for which he was transfused 3u of PRBCs. While in the hospital he ceased passing bright red blood per rectum and maintained his hgb above 8 after the transfusion. On presentation, he had a transiently elevated troponin 0.14 most likely due to demand ischemia with the anemia. He had endoscopy done that only showed a hiatal hernia, then colonsocopy that showed diverticulitis with polyps. Biopsies were taken which did not show any evidence of malignacies, but inflammation. Pt will follow up as an outpatient with Dr Mercer. He was scheduled for an appointment on 04/21 at 2.20pm. For diverticulitis/ diverticulosis with ulcerated polyps ID was consulted. He was initially placed on levaquin but his QTC was above 500. He was then placed on augmentin and flagyl. By discharge, his QTC had improved to 481. He was discharged home on flagyl, mesalamine, Augmentin and protonix. Pt came in with CONCEPCION which improved with hydration and blood transfusion. Imaging however showed worsening L hydronephrosis with 8mm stone for which he will follow with a urologist. He was also noted to have an adrenal mass for which he will also follow as an outpatient. Pt had PVCs while here that improved with electrolyte repletion (potassium) and resuming metoprolol. His blood pressure was initially low due to dehydration and hypovolemia, but normalized. He had an ECHO done that showed elevated RV systolic pressure to 40-50mmHg, see above. He was seen by cardiology while here with spironolactone, digoxin and losartan held while here. He was discharged to resume all his home medications. 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 Minutes to complete discharge: 45 Discharge Summary Reason For Visit: SYNCOPE, GASTROINTESTINAL HEMORRHAGE Current Active Problems Anemia (Acute) Colitis (Acute) Colon, diverticulosis (Acute) Dizziness (Acute) GI bleed (Acute) Syncope (Acute) Weight loss (Acute) AICD (automatic cardioverter/defibrillator) present (Chronic) HTN (hypertension) (Chronic) Condition: Improved - Instructions Diet, Activity, Other Instructions: You came in with bleeding from your rectum Avoid taking NSAIDS (over the counter pain medications like motrin and aleve) You had an endoscopy done that showed a hiatal hernia You had colonoscopy done that showed diverticulosis (outpouching of the colon), multiple polyps, some inflammation and internal hemorrhoids. You were transfused blood and given fluids as you had loose stools Your stool was tested for Cdiff and it was negative The following new medications are started: Augmentin and flagyl (antibiotics for colon inflammation), take as directed Mesalamine (take as directed) Protonix PLEASE NOTE THAT YOU HAVE BEEN FOUND WITH ADRENAL MASS (MASS ABOVE YOUR KIDNEYS ) AND KIDNEY STONE WITH BLOCKAGE. You will need MRI for the mass. Information for urologist has been provided, and please call on discharge to schedule a follow up soon If you notice any fevers, back or flank pain, urinary frequency/urgency or blood in urine, please call 911 or come to ED Follow up with your primary doctor in one week You should get a repeat CBC (blood test to check your blood counts) in 1 week Follow up BMP (Basic metabolic panel) (blood test for Potassium levels) and phosphorous levels in 1 week with your doctor To follow up GI (stomach doctor)- Dr Mercer on 04/21 at 2.20pm- an appointment has been set up for you on that day and time Your final colonscopy biopsy results are pending and please follow up with him for the same. If that does not work for you, please call back to reschedule, but the earlier you see him, the better While you were here, we did an ECHO of your heart that did not show any major problems We are putting you back on all your heart/blood pressure medications Continue to take them as prescribed Advise daily weights, and notify doctor if weight gain > 3 lbs in 2 days. 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 If you notice any new fevers, chills, dark or bloody stools, belly pain, dizziness or any new concerns, please call 911 or come to ED Referrals: Jluis Mercer MD [Staff Physician] - 04/21/18 2:20 pm (For next steps after your colonoscopy and biopsy) ON STAFF,NOT [Primary Care Provider] - Alexander Mir MD [Staff Physician] - 2 Weeks (L renal stone and hydronephrosis with adrenal mass) Thomas Elizabeth [Non Staff, Medical] - 1 Week (PCP for follow up) Disposition: HOME - Home Medications Comprehensive Discharge Medication List: Ambulatory Orders Amlodipine Besylate 10 mg PO DAILY 04/04/18 Digoxin 125 mcg PO DAILY 04/04/18 Folic Acid 2 mg PO DAILY 04/04/18 Furosemide 20 mg PO DAILY 04/04/18 Losartan Potassium 100 mg PO DAILY 04/04/18 Metoprolol Succinate [Toprol XL -] 50 mg PO BID 04/04/18 Simvastatin 20 mg PO DAILY 04/04/18 Spironolactone 25 mg PO DAILY 04/04/18 Amoxicillin/Potassium Clav [Augmentin 875-125 Tablet] 1 each PO BID 5 Days #10 tablet 04/17/18 Mesalamine [Asacol HD -] 800 mg PO TID 30 Days #90 tablet. 04/17/18 Pantoprazole Sodium [Protonix] 40 mg PO DAILY #14 tablet. 04/17/18 metroNIDAZOLE [Flagyl -] 250 mg PO TID #15 tablet 04/17/18 This patient is new to me today: No Date on this admission: 04/17/18 Emergency Visit: Yes ED Registration Date: 04/12/18 Care time: The patient presented to the Emergency Department on the above date and was hospitalized for further evaluation of their emergent condition. Critical Care patient: No - Discharge Referral Referred to [facility] Med P.C.: No
[2018-04-17 15:02] VITALS: BP 141/61; PULSE 79; TEMP 98.4
--- NOTE | 2018-04-18 14:41 | EKG ---
Test Reason : Blood Pressure : / mmHG Vent. Rate : 073 BPM Atrial Rate : 073 BPM P-R Int : 146 ms QRS Dur : 096 ms QT Int : 436 ms P-R-T Axes : 035 -27 024 degrees QTc Int : 480 ms SINUS RHYTHM WITH OCCASIONAL PREMATURE VENTRICULAR COMPLEXES PROLONGED QT ABNORMAL ECG WHEN COMPARED WITH ECG OF 15-APR-2018 03:21, NO SIGNIFICANT CHANGE WAS FOUND Confirmed by MD Gabino, Arnaud ([id number]) on 04/18/2018 2:40:44 PM Referred By: MAGDA VALLECILLO Confirmed By:Arnaud Lloyd MD
--- NOTE | 2018-04-18 19:31 | PATH ---
Surgical Pathology Report Patient Name: SANGEETHA CASTELLANO [facility]. Rec. #: [id number] /Age/Gender: 1945 (Age: 72) / M Account: [id number] Location: 4 W TELEMETRY U Taken: 04/15/2018 Received: 04/15/2018 Reported: 04/18/2018 Physicians: Jluis Mercer M.D. Specimen(s) Received A: BX TERMINAL ILEUM B: ASCENDING COLON C: BX TRANSVERSE COLON D: BX DESCENDING COLON E: POLYP SIGMOID F: BX SIGMOID COLON G: BX RECTUM Clinical History GI bleed Postoperative diagnosis: Diverticulosis, polyps, colitis Final Diagnosis A. TERMINAL ILEUM, BIOPSY: TERMINAL ILEUM MUCOSA WITH ACUTE AND CHRONIC ILEITIS. B. ASCENDING COLON, BIOPSY: COLONIC MUCOSA WITH MODERATE CHRONIC INFLAMMATION, FOCAL NON-NECROTIZING GRANULOMA FORMATION, AND CRYPTAL DISTORTION. C. TRANSVERSE COLON, BIOPSY: COLONIC MUCOSA WITH MODERATE CHRONIC AND MILD ACUTE INFLAMMATION, NON-NECROTIZING GRANULOMA FORMATION, LYMPHOID AGGEGATE, ACUTE CRYPTITIS, AND CRYPTAL DISTORTION. D. DESCENDING COLON, BIOPSY: COLONIC MUCOSA WITH EPITHELIAL HYPERPLASIA, ULCERATION WITH GRANULATION TISSUE FORMATION, ACUTE AND CHRONIC INFLAMMATION IN THE LAMINA PROPRIA, ACUTE CRYPTITIS, AND CRYPTAL DISTORTION. E. POLYP SIGMOID, BIOPSY: COLONIC MUCOSA SHOWING EPITHELIAL EROSION WITH GRANULATION TISSUE FORMATION, ACUTE AND CHRONIC INFLAMMATION IN THE LAMINA PROPRIA, AND CRYPTAL DISTORTION. NOTE: THIS MAY REPRESENT AN INFLAMMATORY POLYP. F. SIGMOID, BIOPSY: COLONIC MUCOSA SHOWING EPITHELIAL EROSION WITH GRANULATION TISSUE FORMATION, ACUTE AND CHRONIC INFLAMMATION IN THE LAMINA PROPRIA, AND CRYPTAL DISTORTION. G. RECTUM, BIOPSY: COLONIC MUCOSA WITH MODERATE CHRONIC AND MILD ACUTE INFLAMMATION IN THE LAMINA PROPRIA, LYMPHOID AGGREGATE, AND CRYPTAL DISTORTION. Comment: There is no dysplasia, parasite or viral inclusions in any of the specimens. PAS and AFB are negative on sections from block B1, C1, and E1. 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 This pattern, while characteristic of chronic idiopathic inflammatory bowel disease, is not specific. This may also be seen in chronic enteric infections, drug reactions, and parasitic infections. Please correlate clinically. Electronically Signed Arnaldo Johnson M.D. Gross Description A. Received in formalin, labeled "terminal ileum" is a cheney, irregular portion of soft tissue measuring 0.5 cm. in greatest dimension. The specimen is submitted in toto in one cassette. B. Received in formalin, labeled "ascending colon" are 3 cheney, irregular portions of soft tissue ranging in size from 0.1-0.3 cm. in greatest dimension. The specimens are submitted in toto in one cassette. C. Received in formalin, labeled "transverse colon" are 3 cheney, irregular portions of soft tissue measuring 0.2 cm. in greatest dimension. The specimens are submitted in toto in one cassette. D. Received in formalin, labeled "descending colon" are 3 cheney, irregular portions of soft tissue measuring 0.1 and 0.2 cm. in greatest dimension. The specimens are submitted in toto in one cassette. E. Received in formalin, labeled "sigmoid polyp" is a cheney, irregular portion of soft tissue measuring 0.3 cm. in greatest dimension. The specimen is submitted in toto in one cassette. F. Received in formalin, labeled "sigmoid colon" are 3 cheney, irregular portions of soft tissue measuring 0.2 and 0.3 cm. in greatest dimension. The specimens are submitted in toto in one cassette. G. Received in formalin, labeled "rectum" are 4 cheney, irregular portions of soft tissue measuring 0.2 and 0.3 cm. in greatest dimension. The specimens are submitted in toto in one cassette. TYE/04/15/2018 neri04/15/2018
== END 2018-04-17 15:54 | disposition home or self-care (01) | DRG 378 ==
LOC: SUPCPDRO 19:59 → JER 19:59 → JERBED 04-12 03:40 → UNDOADMIN 04-12 03:46 → JERBED 04-12 03:46 → J4W 04-12 15:15
PROVIDERS: ADMIT Internal Medicine; ATTEND Hospitalist
PROC: 30233N1 Transfusion of Nonautologous Red Blood Cells into Peripheral Vein, Percutaneous Approach (ICD-10-PCS; 2018-04-12)
PROC: 0DD68ZX Extraction of Stomach, Via Natural or Artificial Opening Endoscopic, Diagnostic (ICD-10-PCS; 2018-04-13)
PROC: 0DD98ZX Extraction of Duodenum, Via Natural or Artificial Opening Endoscopic, Diagnostic (ICD-10-PCS; principal; 2018-04-13 16:00)
PROC: 0DBN8ZX Excision of Sigmoid Colon, Via Natural or Artificial Opening Endoscopic, Diagnostic (ICD-10-PCS; 2018-04-15)
DX: K92.2 Gastrointestinal hemorrhage, unspecified (principal); I42.8 Other cardiomyopathies; N17.9 Acute kidney failure, unspecified; D62 Acute posthemorrhagic anemia; N13.2 Hydronephrosis with renal and ureteral calculous obstruction; I24.8 Other forms of acute ischemic heart disease; E78.2 Mixed hyperlipidemia; I11.0 Hypertensive heart disease with heart failure; R63.4 Abnormal weight loss; Z68.28 Body mass index [BMI] 28.0-28.9, adult; K57.30 Diverticulosis of large intestine without perforation or abscess without bleeding; E87.6 Hypokalemia; R42 Dizziness and giddiness; E83.51 Hypocalcemia; E86.0 Dehydration; K44.9 Diaphragmatic hernia without obstruction or gangrene; K63.5 Polyp of colon; I45.81 Long QT syndrome; K52.9 Noninfective gastroenteritis and colitis, unspecified; I27.20 Pulmonary hypertension, unspecified; K64.4 Residual hemorrhoidal skin tags; Z95.810 Presence of automatic (implantable) cardiac defibrillator
CPT/HCPCS: 36415; 36430; 70450-TC; 71045-TC-FY; 76775-TC; 80048; 80053; 80162; 82550; 83735; 84100; 84484; 85025; 85027; 85610; 85730; 86850; 86900; 86901; 86922; 87324; 87449; 88305-TC; 93005; 93010; 93306-TC; 99284-25; J7030; P9038; P9058

== ENCOUNTER 2018-04-25 00:01 | Observation (INO) | payer OTHER ==
[2018-04-25 00:50] VITALS: BMI 28.8
--- NOTE | 2018-04-25 01:23 | PDOC ---
*Physical Exam - Vital Signs Last Vital Signs Temp Pulse Resp BP Pulse Ox 100.0 F H 102 H 19 130/72 98 04/25/18 00:39 04/25/18 00:39 04/25/18 00:39 04/25/18 00:39 04/25/18 00:39 ED Treatment Course - LABORATORY CBC & Chemistry Diagram: 04/26/18 06:00 04/26/18 06:00 Medical Decision Making - Medical Decision Making 04/25/18 01:22 Pt seen by Midlevel Provider under my direct supervision Pt interviewed and examined Ancillary studies reviewed I agree with plan as outlined by Midlevel Provider *DC/Admit/Observation/Transfer Diagnosis at time of Disposition: Elevated troponin, UTI (urinary tract infection) - Discharge Dispostion Disposition: AGAINST MEDICAL ADVICE Condition at time of disposition: Stable - Prescriptions - Referrals - Patient Instructions - Post Discharge Activity
--- NOTE | 2018-04-25 01:26 | PDOC ---
History of Present Illness - General Chief Complaint: Injury Stated Complaint: SWELLING,ANKLE Time Seen by Provider: 04/25/18 01:14 History Source: Patient, Old Records Exam Limitations: No Limitations - History of Present Illness Initial Comments: 04/25/18 01:56 72-year-old male with past medical history of hypertension, hyperlipidemia, nonischemic CM status post AICD presents emergency Department with dependent edema for the past 2 days. Patient states he noticed his exercise swallowing but was not concerned. Today the swelling had worsened and he called his doctor' s office and was referred to the emergency department. Patient states once he put his legs up there were no longer dangling the edema has gone down. Patient states he intermittently feels short of breath over the 2 days and states that while he is sleeping he notices that he wheezes. Patient denies any chest pain, abdominal bloating, dizziness, headaches, fevers, chills, nausea, vomiting, abdominal pain. Past History - Past Medical History Allergies/Adverse Reactions: Allergies Allergy/AdvReac Type Severity Reaction Status Date / Time No Known Allergies Allergy Verified 04/25/18 00:50 Home Medications: Ambulatory Orders Amlodipine Besylate 10 mg PO DAILY 04/04/18 Digoxin 125 mcg PO DAILY 04/04/18 Folic Acid 2 mg PO DAILY 04/04/18 Furosemide 20 mg PO DAILY 04/04/18 Losartan Potassium 100 mg PO DAILY 04/04/18 Metoprolol Succinate [Toprol XL -] 50 mg PO BID 04/04/18 Simvastatin 20 mg PO DAILY 04/04/18 Spironolactone 25 mg PO DAILY 04/04/18 Amoxicillin/Potassium Clav [Augmentin 875-125 Tablet] 1 each PO BID 5 Days #10 tablet 04/17/18 Mesalamine [Asacol HD -] 800 mg PO TID 30 Days #90 tablet. 04/17/18 Mesalamine [Lialda] 1.2 gm PO BID #60 tablet. 04/17/18 Pantoprazole Sodium [Protonix] 40 mg PO DAILY #14 tablet. 04/17/18 metroNIDAZOLE [Flagyl -] 250 mg PO TID #15 tablet 04/17/18 Anemia: No Asthma: No Cancer: No Cardiac Disorders: No CVA: No COPD: No CHF: No Dementia: No Diabetes: No GI Disorders: No Disorders: No HTN: Yes Hypercholesterolemia: Yes Liver Disease: No Seizures: No Thyroid Disease: No - Surgical History Abdominal Surgery: No Appendectomy: No Cardiac Surgery: Yes (pacemaker) Cholecystectomy: No Lung Surgery: No Neurologic Surgery: No Orthopedic Surgery: No - Immunization History Immunization Up to Date: Yes - Suicide/Smoking/Psychosocial Hx Smoking History: Never smoked Have you smoked in the past 12 months: No Number of Cigarettes Smoked Daily: 0 Cigars Per Day: 0 Information on smoking cessation initiated: No Hx Alcohol Use: No Drug/Substance Use Hx: No Substance Use Type: None Hx Substance Use Treatment: No Review of Systems - Review of Systems Able to Perform ROS?: Yes Is the patient limited Egyptian proficient: No Constitutional: No: Symptoms Reported HEENTM: No: Symptoms Reported Respiratory: Yes: See HPI Cardiac (ROS): Yes: See HPI ABD/GI: No: Symptoms Reported : No: Symptoms Reported Musculoskeletal: No: Symptoms Reported Integumentary: No: Symptoms Reported Neurological: No: Symptoms reported Endocrine: No: Symptoms Reported Hematologic/Lymphatic: No: Symptoms Reported *Physical Exam - Vital Signs Last Vital Signs Temp Pulse Resp BP Pulse Ox 100.0 F H 102 H 19 130/72 98 04/25/18 00:39 04/25/18 00:39 04/25/18 00:39 04/25/18 00:39 04/25/18 00:39 - Physical Exam General Appearance: Yes: Appropriately Dressed. No: Apparent Distress HEENT: positive: EOMI, STARR, Normal ENT Inspection Neck: positive: Trachea midline, Supple Respiratory/Chest: positive: Lungs Clear, Normal Breath Sounds. negative: Respiratory Distress, Accessory Muscle Use Cardiovascular: positive: Regular Rhythm, Regular Rate, S1, S2, Edema. negative : JVD, Murmur Vascular Pulses: Dorsalis-Pedis (R): 2+, Doralis-Pedis (L): 2+ Gastrointestinal/Abdominal: positive: Normal Bowel Sounds, Soft. negative: Tender Musculoskeletal: positive: Normal Inspection. negative: CVA Tenderness Extremity: positive: Normal Inspection Integumentary: positive: Normal Color, Dry, Warm Neurologic: positive: Alert, Normal Response Heart Score/ECG Review - History History: Slightly suspicious - Electrocardiogram EKG: Non specific repolarization disturbance - Age Age: >/= 65 - Risk Factors Risk Factors Heart Score: Yes Hx Hypercholesterolemia, Yes Hx Hypertension Based on the list above the patient has:: 1-2 risk factors - Troponin Troponin: 1-3x normal limit - Score Heart Score - Total: 5 ED Treatment Course - LABORATORY CBC & Chemistry Diagram: 04/25/18 02:53 04/25/18 02:53 Medical Decision Making - Medical Decision Making 04/25/18 01:33 A/P: 72-year-old male past medical history of non-ischemic CM status post AICD, hyperlipidemia, hypertension with dependent edema Respirations even and unlabored. Patient is speaking in full sentences Lungs clear to auscultation bilaterally S1 and S2 present. No murmur, rub or gallop noted 2+ pedal edema noted left greater than right No erythema to bilateral lower extremities Neg Sukumar's bilaterally No JVD noted Abdomen soft nontender nondistended ECHO 04/14/18: Technically limited study. LV mildly dialted -LVEF grossly N-55-60% . E?A reversal consistent but not diagnostic of poor LV compliance. RV is not well visualized. RV is mild-mod dilated. Pacemaker lead in RV. RV function cannot be assessed due to poor image quality. LA is mildly dilated. RA not well visualized. Mild aortic sclerosis. Mild to moderate annular calcification. Mild MR, mild TR, mild Pulm HTN. RV systolic pressure is elevated at 40-50mmhg. Likely this is dependent edema I cannot rule out cardiac etiology. Less likely DVT as this is bilateral and edema has improved when patient elevated his lower extremities. EKG, chest x-ray, labs including BNP, cardiac monitoring 04/25/18 04:19 EKG is reviewed by me and interpreted by Dr. Maharaj-sinus rhythm with PVCs present. When compared EKG done on 04/17/18 no significant change in morphology from previous prolonged QT is now resolved. Laboratory testing reveals magnesium- 1.4, calcium- 7.7, troponin -0.09 and a BNP- 4915. I'll replete the magnesium intravenously as patient has recent history of GI bleed may not be able to tolerate oral. UA with 2+ leukoesterase, 1+ protein and 32 white cells in the urine. Heart score of 5 and UTI. I will admit the patient to hospitalist service for continued ACS workup. 04/25/18 05:27 X-rays read by me: Angles are clear. No pneumothorax is identified. Cardiomegaly noted. Pacemaker present in the left. No significant change from study done 04/04/18. 04/25/18 05:55 Case d/w MD Field who accepts pt for admission. *DC/Admit/Observation/Transfer Diagnosis at time of Disposition: Elevated troponin, UTI (urinary tract infection) - Discharge Dispostion Condition at time of disposition: Fair Decision to Admit order: Yes - Referrals Referrals: Thomas Elizabeth [Primary Care Provider] - - Patient Instructions - Post Discharge Activity
[2018-04-25 03:08] LABS: BASO % 0.5 % (0-2.0); EOS % 0.6 % (0-4.5); HEMATOCRIT 26.8 % (35.4-49); HEMOGLOBIN 9.1 GM/dL (11.7-16.9); LYMPH % 27.6 % (8-40); MCH 30.6 pg (25.7-33.7); MCHC 33.8 g/dl (32.0-35.9); MEAN CELL VOLUME 90.7 fl (80-96); MEAN PLT VOLUME 7.8 fl (7.5-11.1); NEUT % 64.3 % (42.8-82.8); PLATELET COUNT 270 K/MM3 (134-434); RBC 2.96 M/mm3 (4.00-5.60); RDW 16.9 % (11.9-15.9); WHITE BLOOD COUNT 8.6 K/mm3 (4.0-10.0)
[2018-04-25 03:17] LABS: URINE APPEARANCE CLEAR; URINE BILIRUBIN NEGATIVE (<2.0 mg/dL); URINE COLOR LTYELLOW; URINE GLUCOSE (UA) NEGATIVE (NEGATIVE); URINE KETONE NEGATIVE (NEGATIVE); URINE NITRITE NEGATIVE (NEGATIVE); URINE UROBILINOGEN NEGATIVE mg/dL (0.2-1.0)
[2018-04-25 03:19] LABS: URINE LEUK ESTERASE 2+ (NEGATIVE); URINE PROTEIN 1+ (NEGATIVE)
[2018-04-25 03:20] LABS: EPI CELLS RARE /HPF (FEW); URINE BACTERIA RARE /hpf (NONE SEEN)
[2018-04-25 03:21] LABS: INR 1.19 (0.82-1.09); PROTHROMBIN TIME (PATIENT) 13.5 SEC (9.7-13.0)
[2018-04-25 03:25] LABS: ALBUMIN 1.7 g/dl (3.4-5.0); ANION GAP 4 (8-16); BILIRUBIN,TOTAL 0.4 mg/dL (0.2-1.0); BLOOD UREA NITROGEN 14 mg/dL (7-18); CALCIUM 7.7 mg/dL (8.5-10.1); CHLORIDE 105 mmol/L (98-107); CO2 30 mmol/L (21-32); GLUCOSE,RANDOM 96 mg/dL (74-106); MAGNESIUM 1.4 mg/dL (1.8-2.4); POTASSIUM 3.7 mmol/L (3.5-5.1); SGOT/AST 30 U/L (15-37); SGPT/ALT 24 U/L (12-78); SODIUM 139 mmol/L (136-145)
[2018-04-25 03:32] LABS: ALK PHOS 51 U/L (45-117); N-TERMINAL BNP 4915.72 pg/ml (5-125); TOT PROT 7.9 g/dl (6.4-8.2)
[2018-04-25] MEDS ORDERED: MAGNESIUM SULF 50% (8.12 MEQ/2 ML-1 GM VIAL) IVPB ONE (04:20)
[2018-04-25] MEDS ORDERED: CEFTRIAXONE 1,000 MG in DEXTROSE 5%-WATER - 50 ML IVPB ONE (05:15)
[2018-04-25] MEDS ORDERED: ASPIRIN 325 MG ENTERIC COATED TABLET (FP) PO ONE (05:31)
[2018-04-25] MEDS ORDERED: CEFTRIAXONE 1 GM/50 ML BAG ONE (05:36)
[2018-04-25] MEDS ORDERED: ASPIRIN 325 MG ENTERIC COATED TABLET (FP) ONE (05:37)
[2018-04-25] MEDS ORDERED: FUROSEMIDE 40 MG/4 ML INJECTABLE VIAL IVPUSH ONE (06:39)
--- NOTE | 2018-04-25 06:42 | PN ---
Teaching Attending Note Name of Resident: Agnes Velasquez ATTENDING PHYSICIAN STATEMENT I saw and evaluated the patient. I reviewed the resident's note and discussed the case with the resident. I agree with the resident's findings and plan as documented. SUBJECTIVE: 72M with NICM s/p ICD p/w worsening ankle swelling OBJECTIVE: Gen: NAD CV: RRR no m/r/g Lungs: CTA Last ECHO 04/14/18 EF 55-60% trop 0.09 BNP 4915 ASSESSMENT AND PLAN: 72M with NICM developing mild volume overload sugestive of a mild decompensation. mild troponin is likely demand ischemia IV lasix temoporarily Cardio Eval trend troponins
--- NOTE | 2018-04-25 06:46 | HP ---
CHIEF COMPLAINT: Leg swelling PCP: Dr Elizabeth HISTORY OF PRESENT ILLNESS: Pt is a 72yo M PMHx of HTN, HLD, Non Ischemic cardiomyopathy with CHF, PVCs, s/p defibrillator implant, recently discharged on diverticulitis treatment, presenting wit 3 days hx of bilateral pedal edema. Pt notices the swelling is worse when he is dependent, improves with elevation of the legs. Denies SOB, MORALES or Orthopnea, but is c/o of wheeze. Pt has no prior hx of COPD/Asthma. He notes he has been compliant on all his medications since discharge and has been independent in ADLS, returning to work. No hx of recent travel or long flights. No cough, chest pain, fever or syncope. Pt says he still has 2 loose bowel movements daily, but no more bleeding per rectum. In the ED he was noted to be sating at 92% on RA and was put on nasal cannular. ER course was notable for: (1) NJ-100, BP-130/72 (2) UA- LE2+ WBCs, absent nitrites, zosyn (3) CXR- appears nl- no obvious signs of congestion (D/W Dr Field), BMP-4915 (4) EKG- vent rate -95bpm, SR with PVCs, QTC-485 Recent Travel: PAST MEDICAL HISTORY: HTN, HLD, Non Ischemic cardiomyopathy with CHF, PVCs, s/p defibrillator implant PAST SURGICAL HISTORY: Social History: Smoking: Alcohol: Drugs: Family History: Allergies No Known Allergies Allergy (Verified 04/25/18 00:50) HOME MEDICATIONS: Home Medications Medication Instructions Recorded Amlodipine Besylate 10 mg PO DAILY 04/04/18 Digoxin 125 mcg PO DAILY 04/04/18 Folic Acid 2 mg PO DAILY 04/04/18 Furosemide 20 mg PO DAILY 04/04/18 Losartan Potassium 100 mg PO DAILY 04/04/18 Metoprolol Succinate [Toprol XL -] 50 mg PO BID 04/04/18 Simvastatin 20 mg PO DAILY 04/04/18 Spironolactone 25 mg PO DAILY 04/04/18 Amoxicillin/Potassium Clav 1 each PO BID 5 Days #10 tablet 04/17/18 [Augmentin 875-125 Tablet] Mesalamine [Asacol HD -] 800 mg PO TID 30 Days #90 tablet. 04/17/18 Mesalamine [Lialda] 1.2 gm PO BID #60 tablet. 04/17/18 Pantoprazole Sodium [Protonix] 40 mg PO DAILY #14 tablet. 04/17/18 metroNIDAZOLE [Flagyl -] 250 mg PO TID #15 tablet 04/17/18 REVIEW OF SYSTEMS CONSTITUTIONAL: Absent: fever, chills, diaphoresis, generalized weakness, malaise, loss of appetite, weight change HEENT: Absent: rhinorrhea, nasal congestion, throat pain, throat swelling, difficulty swallowing, mouth swelling, ear pain, eye pain, visual changes CARDIOVASCULAR: Absent: chest pain, syncope, palpitations, irregular heart rate, lightheadedness , peripheral edema RESPIRATORY: Absent: cough, shortness of breath, dyspnea with exertion, orthopnea, wheezing, stridor, hemoptysis GASTROINTESTINAL: Absent: abdominal pain, abdominal distension, nausea, vomiting, diarrhea, constipation, melena, hematochezia GENITOURINARY: Absent: dysuria, frequency, urgency, hesitancy, hematuria, flank pain, genital pain MUSCULOSKELETAL: Absent: myalgia, arthralgia, joint swelling, back pain, neck pain SKIN: Absent: rash, itching, pallor HEMATOLOGIC/IMMUNOLOGIC: Absent: easy bleeding, easy bruising, lymphadenopathy, frequent infections ENDOCRINE: Absent: unexplained weight gain, unexplained weight loss, heat intolerance, cold intolerance NEUROLOGIC: Absent: headache, focal weakness or paresthesias, dizziness, unsteady gait, seizure, mental status changes, bladder or bowel incontinence PSYCHIATRIC: Absent: anxiety, depression, suicidal or homicidal ideation, hallucinations. PHYSICAL EXAMINATION Vital Signs - 24 hr 04/25/18 00:39 Temperature 100.0 F H Pulse Rate 102 H Respiratory 19 Rate Blood Pressure 130/72 O2 Sat by Pulse 98 Oximetry (%) GENERAL: Awake, alert, and fully oriented, in no obvious respiratory distress. HEAD: Normal with no signs of trauma. NECK: No JVD LUNGS: Reduced Breath sounds, no crackles. HEART: tachycardia, irregular, S1 and S2 without murmur ABDOMEN: Obese, Soft, non tender, normoactive bowel sounds, MUSCULOSKELETAL: Normal range of motion at all joints. LOWER EXTREMITIES: 2+ pulses, warm, 1+ bilateral peripheral edema R>L. NEUROLOGICAL: AAOx3, normal speech, no facial droop. CBC, BMP 04/25/18 02:53 04/25/18 02:53 Laboratory Results - last 24 hr 04/25/18 04/25/18 04/25/18 02:53 02:53 02:53 WBC 8.6 RBC 2.96 L Hgb 9.1 L Hct 26.8 L MCV 90.7 MCH 30.6 MCHC 33.8 RDW 16.9 H Plt Count 270 MPV 7.8 Absolute Neuts (auto) 5.5 Neutrophils % 64.3 Lymphocytes % 27.6 Monocytes % 7.0 Eosinophils % 0.6 Basophils % 0.5 Nucleated RBC % 0 PT with INR 13.50 H INR 1.19 H Sodium 139 Potassium 3.7 Chloride 105 Carbon Dioxide 30 D Anion Gap 4 L BUN 14 D Creatinine 1.0 Creat Clearance w eGFR > 60 Random Glucose 96 Calcium 7.7 L Magnesium 1.4 L D Total Bilirubin 0.4 D AST 30 ALT 24 D Alkaline Phosphatase 51 Creatine Kinase 66 Troponin I 0.09 H B-Natriuretic Peptide 4915.72 H Total Protein 7.9 Albumin 1.7 L Urine Color Urine Appearance Urine pH Ur Specific [place] Urine Protein Urine Glucose (UA) Urine Ketones Urine Blood Urine Nitrite Urine Bilirubin Urine Urobilinogen Ur Leukocyte Esterase Urine WBC (Auto) Urine RBC (Auto) Ur Epithelial Cells Urine Bacteria 04/25/18 03:05 WBC RBC Hgb Hct MCV MCH MCHC RDW Plt Count MPV Absolute Neuts (auto) Neutrophils % Lymphocytes % Monocytes % Eosinophils % Basophils % Nucleated RBC % PT with INR INR Sodium Potassium Chloride Carbon Dioxide Anion Gap BUN Creatinine Creat Clearance w eGFR Random Glucose Calcium Magnesium Total Bilirubin AST ALT Alkaline Phosphatase Creatine Kinase Troponin I B-Natriuretic Peptide Total Protein Albumin Urine Color Ltyellow Urine Appearance Clear Urine pH 7.0 Ur Specific [place] 1.010 Urine Protein 1+ H Urine Glucose (UA) Negative Urine Ketones Negative Urine Blood Negative Urine Nitrite Negative Urine Bilirubin Negative Urine Urobilinogen Negative Ur Leukocyte Esterase 2+ H Urine WBC (Auto) 32 Urine RBC (Auto) 9 Ur Epithelial Cells Rare Urine Bacteria Rare Ambulatory Orders Amlodipine Besylate 10 mg PO DAILY 04/04/18 Digoxin 125 mcg PO DAILY 04/04/18 Folic Acid 2 mg PO DAILY 04/04/18 Furosemide 20 mg PO DAILY 04/04/18 Losartan Potassium 100 mg PO DAILY 04/04/18 Metoprolol Succinate [Toprol XL -] 50 mg PO BID 04/04/18 Simvastatin 20 mg PO DAILY 04/04/18 Spironolactone 25 mg PO DAILY 04/04/18 Amoxicillin/Potassium Clav [Augmentin 875-125 Tablet] 1 each PO BID 5 Days #10 tablet 04/17/18 Mesalamine [Asacol HD -] 800 mg PO TID 30 Days #90 tablet. 04/17/18 Mesalamine [Lialda] 1.2 gm PO BID #60 tablet. 04/17/18 Pantoprazole Sodium [Protonix] 40 mg PO DAILY #14 tablet. 04/17/18 metroNIDAZOLE [Flagyl -] 250 mg PO TID #15 tablet 04/17/18 Current Medications Heparin Sodium (Porcine) (Heparin -) 5,000 unit SQ TID [facility] ECHO 04/14/18: Technically limited study. LV mildly dialted -LVEF grossly N-55-60% . E?A reversal consistent but not diagnostic of poor LV compliance. RV is not well visualized. RV is mild-mod dilated. Pacemaker lead in RV. RV function cannot be assessed due to poor image quality. LA is mildly dilated. RA not well visualized. Mild aortic sclerosis. Mild to moderate annular calcification. Mild MR, mild TR, mild Pulm HTN. RV systolic pressure is elevated at 40-50mmhg. ASSESSMENT/PLAN: Pt is a 72yo M PMHx of HTN, HLD, Non Ischemic cardiomyopathy with CHF, PVCs, s/ p defibrillator implant recently discharged on diverticulitis treatment, presenting wit 3 days hx of bilateral pedal edema. CHF exacerbation; BMP-4915, pt reporting wheezes, bilateral leg swelling pt has documented non ischemic cardiomyopathy with CHF Recent ECHO 04/14/18-with mildly dilated LV Iv lasix 40mg stat cardiac monitoring Tele Strict ins and outs weights Cardiology consult- Dr Pack Salt controlled diet monitor Troponinemia: trop-0.09, could be demand due to poor pump function Elevated in previous admission Trend R/O UTI LE 2+, absent nitrates, few WBCs, no fever No urinary symptoms Follow urine cx Received AB in ED Can monitor off AB Hypomagnesemia Pt still passing loose stools Repleted in ED Monitor HTN Cont toprolol, losartan, spironolactone HLD Cont statin PVCs, s/p defibrillator Cont metoprolol PPx: Heparin sq FEN Po ingestion Monitor lytes and replete as needed Sodium free diet Case D/W Dr Field Visit type - Emergency Visit Emergency Visit: Yes ED Registration Date: 04/25/18 Care time: The patient presented to the Emergency Department on the above date and was hospitalized for further evaluation of their emergent condition. - New Patient This patient is new to me today: Yes Date on this admission: 04/25/18 - Critical Care Critical Care patient: No Hospitalist Screening - Colonoscopy Questionnaire Colonoscopy Questionnaire: Colonoscopy Questionnaire - Patient: 50 - 75 years old and never had a screening colonoscopy: No History of colon or rectal polyps, or CA: Unknown History of IBD, Crohn's disease or UC: Yes History of abdominal radiation therapy as a child: Unknown - Relative: 1 with colon or rectal CA, or polyps at age 60 or younger: Unknown Colon or rectal CA diagnosed at age 45 or younger: Unknown Multiple relatives with colon or rectal CA: Unknown - Outcome: Screening Result: Positive Screen
[2018-04-25] MEDS ORDERED: HEPARIN NA (PORCINE) 5,000 UNITS/ML 1ML VIAL ONE (06:52)
[2018-04-25] MEDS: HEPARIN NA (PORCINE) 5,000 UNITS/ML 1ML VIAL SQ SCH ×2 (06:52→14:05)
[2018-04-25] MEDS ORDERED: FUROSEMIDE 40 MG/4 ML INJECTABLE VIAL ONE (06:53)
[2018-04-25 07:13] LABS: BASO % 1.1 % (0-2.0); EOS % 0.8 % (0-4.5); HEMATOCRIT 27.6 % (35.4-49); HEMOGLOBIN 9.4 GM/dL (11.7-16.9); LYMPH % 36.6 % (8-40); MCH 30.8 pg (25.7-33.7); MCHC 34.1 g/dl (32.0-35.9); MEAN CELL VOLUME 90.3 fl (80-96); MEAN PLT VOLUME 7.7 fl (7.5-11.1); MONO % 7.9 % (3.8-10.2); NEUT % 53.6 % (42.8-82.8); PLATELET COUNT 279 K/MM3 (134-434); RBC 3.06 M/mm3 (4.00-5.60); RDW 17.2 % (11.9-15.9); WHITE BLOOD COUNT 7.7 K/mm3 (4.0-10.0)
[2018-04-25 08:05] LABS: ALBUMIN 1.8 g/dl (3.4-5.0); ALK PHOS 53 U/L (45-117); ANION GAP 2 (8-16); BILIRUBIN,TOTAL 0.3 mg/dL (0.2-1.0); BLOOD UREA NITROGEN 12 mg/dL (7-18); CALCIUM 8.1 mg/dL (8.5-10.1); CHLORIDE 103 mmol/L (98-107); CO2 31 mmol/L (21-32); GLUCOSE,RANDOM 95 mg/dL (74-106); MAGNESIUM 2.5 mg/dL (1.8-2.4); PHOSPHOROUS 2.3 mg/dL (2.5-4.9); POTASSIUM 3.4 mmol/L (3.5-5.1); SGOT/AST 30 U/L (15-37); SGPT/ALT 25 U/L (12-78); SODIUM 136 mmol/L (136-145); TOT PROT 8.5 g/dl (6.4-8.2)
--- NOTE | 2018-04-25 08:56 | PN ---
Physical Exam: SUBJECTIVE: Patient seen and examined. Denies chest pain, short of breath with physical activity. Reports dry weight 195lb. OBJECTIVE: Vital Signs Period Temp Pulse Resp BP Sys/Bentley Pulse Ox Last 24 Hr 97.8 F-100.0 F 71-102 18-19 108-130/56-76 92-98 GENERAL: The patient is awake, alert, and fully oriented, in no acute distress. HEAD: Normal with no signs of trauma. EYES: PERRL, extraocular movements intact, sclera anicteric, conjunctiva clear. No ptosis. ENT: Ears normal, nares patent, oropharynx clear without exudates, moist mucous membranes. NECK: Trachea midline, full range of motion, supple. LUNGS: Breath sounds equal, clear to auscultation bilaterally, no wheezes, no crackles, no accessory muscle use. HEART: Regular rate and rhythm, ABDOMEN: Soft, nontender, nondistended, normoactive bowel sounds, no guarding, no rebound, no hepatosplenomegaly, no masses. EXTREMITIES: +1 lower extremity edema from knee down to ankle NEUROLOGICAL: Normal speech, gait not observed. PSYCH: Normal mood, normal affect. SKIN: Warm, dry, normal turgor, no rashes or lesions noted Laboratory Results - last 24 hr 04/25/18 04/25/18 04/25/18 02:53 02:53 02:53 WBC 8.6 RBC 2.96 L Hgb 9.1 L Hct 26.8 L MCV 90.7 MCH 30.6 MCHC 33.8 RDW 16.9 H Plt Count 270 MPV 7.8 Absolute Neuts (auto) 5.5 Neutrophils % 64.3 Lymphocytes % 27.6 Monocytes % 7.0 Eosinophils % 0.6 Basophils % 0.5 Nucleated RBC % 0 PT with INR 13.50 H INR 1.19 H Sodium 139 Potassium 3.7 Chloride 105 Carbon Dioxide 30 D Anion Gap 4 L BUN 14 D Creatinine 1.0 Creat Clearance w eGFR > 60 Random Glucose 96 Calcium 7.7 L Phosphorus Magnesium 1.4 L D Total Bilirubin 0.4 D AST 30 ALT 24 D Alkaline Phosphatase 51 Creatine Kinase 66 Troponin I 0.09 H B-Natriuretic Peptide 4915.72 H Total Protein 7.9 Albumin 1.7 L Urine Color Urine Appearance Urine pH Ur Specific Leighton Urine Protein Urine Glucose (UA) Urine Ketones Urine Blood Urine Nitrite Urine Bilirubin Urine Urobilinogen Ur Leukocyte Esterase Urine WBC (Auto) Urine RBC (Auto) Ur Epithelial Cells Urine Bacteria 04/25/18 04/25/18 04/25/18 03:05 06:50 06:50 WBC 7.7 RBC 3.06 L Hgb 9.4 L Hct 27.6 L MCV 90.3 MCH 30.8 MCHC 34.1 RDW 17.2 H Plt Count 279 MPV 7.7 Absolute Neuts (auto) 4.1 Neutrophils % 53.6 Lymphocytes % 36.6 D Monocytes % 7.9 Eosinophils % 0.8 Basophils % 1.1 Nucleated RBC % 0 PT with INR INR Sodium 136 Potassium 3.4 L Chloride 103 Carbon Dioxide 31 Anion Gap 2 L BUN 12 Creatinine 1.0 Creat Clearance w eGFR > 60 Random Glucose 95 Calcium 8.1 L Phosphorus 2.3 L Magnesium 2.5 H D Total Bilirubin 0.3 D AST 30 ALT 25 Alkaline Phosphatase 53 Creatine Kinase Troponin I B-Natriuretic Peptide Total Protein 8.5 H Albumin 1.8 L Urine Color Ltyellow Urine Appearance Clear Urine pH 7.0 Ur Specific Leighton 1.010 Urine Protein 1+ H Urine Glucose (UA) Negative Urine Ketones Negative Urine Blood Negative Urine Nitrite Negative Urine Bilirubin Negative Urine Urobilinogen Negative Ur Leukocyte Esterase 2+ H Urine WBC (Auto) 32 Urine RBC (Auto) 9 Ur Epithelial Cells Rare Urine Bacteria Rare Active Medications Generic Name Dose Route Start Last Admin Trade Name Freq PRN Reason Stop Dose Admin Amlodipine Besylate 10 mg 04/25/18 10:00 Norvasc - PO DAILY [facility] Atorvastatin Calcium 10 mg 04/25/18 22:00 Lipitor - PO HS [facility] Folic Acid 2 mg 04/25/18 10:00 Folic Acid - PO DAILY [facility] Heparin Sodium (Porcine) 5,000 unit 04/25/18 06:45 04/25/18 06:52 Heparin - SQ 5,000 unit TID [facility] Administration Losartan Potassium 100 mg 04/25/18 10:00 Cozaar - PO DAILY [facility] Metoprolol Succinate 50 mg 04/25/18 10:00 Toprol Xl - PO BID [facility] Non-Formulary Medication 1.2 gm 04/25/18 10:00 Mesalamine [Lialda] PO BID [facility] Spironolactone 25 mg 04/25/18 10:00 Aldactone - PO DAILY [facility] ASSESSMENT/PLAN: Patient is a 72 year old male with a significant past medical history of hypertension, hyperlipidemia, nonischemic CM status post AICD presents emergency Department with dependent edema for the past 2 days with increased shortness of breath x 2 days. He states that he has audible wheezing when sleeping. He any chest pain, dizziness, headaches, fevers, chills, nausea, vomiting, abdominal pain. Cardiology: Lower extremity edema with increased shortness of breath. Trops 0.09, 0.09, awaiting third, patient hx hx of ICD placement 2 year prior and on home Lasix 20mg since, does not monitor weights at home. Recent echo 04/17 LV midly dilated EF 55-60% Cardiac monitoring, daily weights, intake and output Cardiology consulted. Hypertension, chronic on Toprol, Losartan, Spironolactone. : UTI rule out UA with Leurk ext +2, few WBCs. Given Ceftriaxone in ED, no fevers, awaiting UC GI Recent GI bleed on last admission with prbc transfusion and colonscopy 04/17/18 which showed severe diverticulosis in the sigmoid colon and mild diverticulosis in the ascending and descending colon Seen by GI on last admission for colitis No anticoagulation due to this Monitor hmt/hct FEN tolerating PO monitor electrolytes low salt Protonix Visit type - Emergency Visit Emergency Visit: Yes ED Registration Date: 04/25/18 Care time: The patient presented to the Emergency Department on the above date and was hospitalized for further evaluation of their emergent condition. - New Patient This patient is new to me today: Yes Date on this admission: 04/25/18 - Critical Care Critical Care patient: No - Discharge Referral Referred to [facility] Med P.C.: No
--- NOTE | 2018-04-25 09:51 | CON.CARD ---
Consult Consult Specialty:: cardio Reason for Consultation:: edema - History of Present Illness Chief Complaint: leg swelling History of Present Illness: 72 yo male presented with few days of dependent leg swelling. recently here for rectal bleeding s/p IVF and 3 units packed cells. dx'd with diverticulosis assctd colitis vs IBD, seen by dr colon then of note, pt has nonisch CMP dx'd early 2017, s/p primary prevn ICD 02/25--with NORMAL LVEF on echo here 04/27. was felt to be euvolemic at that time. prior home lasix 20 qd resumed on discharge (04/17) does not urinate much when takes this he says--he is urinating vigorously in response to iv lasix here today no signif valvular dysfunction on the recent echo, however RV dilated with function tds for assessment pt notes the swelling for few days. denies sob but on further questioning admits that when he climbs 3 flights to his apt daily, he walks slower b/c would lose his breath more easily if he did not--going on about 2 weeks. no orthopnea. no cp. pt states he had ICD put in [address] mo ([facility]) and sees pmd in [facility] (mathieu), but has had no cardio f/u at all. says he has weak heart function and has been on lasix 20 prophylactically for this since ICD put in. denies h/o chf previously. PMH: HTN HPL nonisch CMP s/p primary prevn ICD colitis (04/27) - Past Medical History Cardio/Vascular: Yes: HTN, Other (History of defibrilator placement. 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 History of Recent Travel: No Home Medications - Allergies Allergies/Adverse Reactions: Allergies Allergy/AdvReac Type Severity Reaction Status Date / Time No Known Allergies Allergy Verified 04/25/18 00:50 - Home Medications Home Medications: Ambulatory Orders Amlodipine Besylate 10 mg PO DAILY 04/04/18 Digoxin 125 mcg PO DAILY 04/04/18 Folic Acid 2 mg PO DAILY 04/04/18 Furosemide 20 mg PO DAILY 04/04/18 Losartan Potassium 100 mg PO DAILY 04/04/18 Metoprolol Succinate [Toprol XL -] 50 mg PO BID 04/04/18 Simvastatin 20 mg PO DAILY 04/04/18 Spironolactone 25 mg PO DAILY 04/04/18 Amoxicillin/Potassium Clav [Augmentin 875-125 Tablet] 1 each PO BID 5 Days #10 tablet 04/17/18 Mesalamine [Asacol HD -] 800 mg PO TID 30 Days #90 tablet. 04/17/18 Mesalamine [Lialda] 1.2 gm PO BID #60 tablet. 04/17/18 Pantoprazole Sodium [Protonix] 40 mg PO DAILY #14 tablet. 04/17/18 metroNIDAZOLE [Flagyl -] 250 mg PO TID #15 tablet 04/17/18 Family Disease History - Family Disease History Family Disease History: Other: Father (: 70's: unclear cause), Mother ( in 70's: "cancer"), Brother (2: 1 from [place], 1 from ETOH abuse complications), Daughter (1, from lung problems, 2 healthy) Review of Systems - Review of Systems Constitutional: denies: Chills, Fever Eyes: denies: Eye Pain HENT: denies: Nasal Congestion Neck: denies: Stiffness Cardiovascular: denies: Palpitations Respiratory: denies: Orthopnea, PND Gastrointestinal: denies: Diarrhea, Rectal Bleeding Genitourinary: denies: Burning, Hematuria Musculoskeletal: denies: Muscle Pain Integumentary: denies: Rash Neurological: denies: Numbness, Seizure, Syncope Endocrine: denies: Excessive Sweating Hematology/Lymphatic: denies: Excessive Bleeding Vital Signs: Vital Signs Temperature 97.8 F 04/25/18 07:24 Pulse Rate 71 04/25/18 07:24 Respiratory Rate 18 04/25/18 07:24 Blood Pressure 115/56 04/25/18 07:24 O2 Sat by Pulse Oximetry (%) 97 04/25/18 07:24 Constitutional: Yes: Well Nourished, No Distress Eyes: No: Sclera Icterus HENT: No: Nasal Congestion Neck: No: Decreased ROM Respiratory: Yes: CTA Bilaterally. No: Accessory Muscle Use, Rales, Wheezes Gastrointestinal: Yes: Normal Bowel Sounds. No: Distention, Hepatomegaly, Palpable Mass, Tenderness Cardiovascular: Yes: Regular Rate and Rhythm JVD: Yes Carotid Bruit: No PMI: Non-Displaced Heart Sounds: Yes: S1, S2. No: Gallop Murmur: No: Systolic Murmur, Diastolic Murmur Musculoskeletal: Yes: Other (No kyphosis) Extremities: No: Cold, Cyanosis Edema: Yes (1-2+ ankles) Peripheral Pulses: 2+ Left Carotid, 2+ Right Carotid, 2+ Left Doralis Pedis, 2+ Right Dorsalis Pedis Integumentary: No: Jaundice Neurological: Yes: Alert, Oriented (x3) Psychiatric: No: Agitated - Other Data Labs, Other Data: CBC, BMP 04/25/18 06:50 04/25/18 06:50 INR, PTT INR 1.19 (0.82-1.09) H 04/25/18 02:53 Troponin, BNP 04/25/18 02:53 Troponin I 0.09 H B-Natriuretic Peptide 4915.72 H Troponin, BNP 04/25/18 02:53 Troponin I 0.09 H B-Natriuretic Peptide 4915.72 H Assessment/Plan CXR: no effusions. mild cephalization noted, new vs prior. mild incr markings bases is unchanged vs priors echo 04/2018: 1+ lve. EF 55-60%. E/A reversal. mild-mod RVE. unable to assess rv function. 1+ mr. tele: NSR with frequent PVCs. brief run SVT (likely AT). VT runs x3b ASSESSMENT/PLAN: 72 M, HTN, HL, NICM S/P medtronic ICD 2014, now with normalization of EF who p/ w BRBPR. s/p LGIB (rectal bleeding) 04/27: - required 3 units PRBCs then s/p colonoscopy--dx per GI diverticulosis associated colitis versus IBD presumed NICM s/p medtronic ICD for primary prevention, EF now normalized. - last icd check in March --> nl fn/lead parameters, no arrhythmias. - dilated NICM dx on 12/2014 echo. EF at the time was 28%. non-obs cad on cath at that time. eventually underwent ICD for primary prevention. - digoxin held for normalized LVEF, hence no longer indicated - home cardiac meds: toprol 50, losartan 100, aldactone 25, lasix 20, norvasc 10 , simva 20 - currently here with dependent LE edema, new for him. also decr E.T. (on stairs ) of late. - BNP here 4900, vs 1900 prior (2014). - CXR c/w mild pulm venous congestion suspected on my review - suspect JVD on exam though TDS (prominent SCM muscle) - suspect decompensated CHF--? HFpEF vs primarily RV failure syndrome - wt 192 lbs on discharge 04/17--rpt wt ordered here (does not monitor home wt or know recent trend) - continue lasix 40 iv qd, reassess wt/labs and sx's in am - will review recent echo done here - pt advised that dr mo is a rhythm doctor and does not manage CHF, and that he should be seeing us regularly for optimization of LV dysfunction meds as well as titrating of diuretics as needed in future. - continue home toprol, losartan, spironolactone VTach: - frequent PVCs on tele, 3 beat run - protected by ICD in place - BB, HF optimization as doing HTN - bp controlled - continue home meds HL - resume statin
[2018-04-25] MEDS ORDERED: PATIENT'S OWN MEDICATION (NON-FORMULARY) (Mesalamine [Lialda] 1.2 GM) PO SCH (10:00)
[2018-04-25] MEDS: SPIRONOLACTONE 25 MG TABLET (FP) PO SCH (10:16)
[2018-04-25] MEDS: LOSARTAN POTASSIUM 50 MG TABLET (FP) PO SCH (10:16)
[2018-04-25] MEDS: FOLIC ACID 1 MG TABLET (FP) PO SCH (10:16)
[2018-04-25] MEDS: amLODIPine BESYLATE 10 MG TABLET (FP) PO SCH (10:16)
--- NOTE | 2018-04-25 17:47 | EKG ---
Test Reason : Blood Pressure : / mmHG Vent. Rate : 095 BPM Atrial Rate : 095 BPM P-R Int : 126 ms QRS Dur : 092 ms QT Int : 386 ms P-R-T Axes : 049 -26 065 degrees QTc Int : 485 ms SINUS RHYTHM WITH FREQUENT and consecutive PREMATURE VENTRICULAR COMPLEXES SEPTAL INFARCT , AGE UNDETERMINED ABNORMAL ECG WHEN COMPARED WITH ECG OF 17-APR-2018 11:01, SEPTAL INFARCT IS NOW PRESENT Confirmed by BISHNU ROSE, JALEN ([id number]) on 04/25/2018 5:46:56 PM Referred By: Confirmed By:JALEN GOETZ MD
[2018-04-25] MEDS ORDERED: ATORVASTATIN CA 10 MG TABLET (FP) PO SCH (22:00)
[2018-04-26 07:41] LABS: EOS % 2.6 % (0-4.5); HEMOGLOBIN 9.7 GM/dL (11.7-16.9); LYMPH % 41.1 % (8-40); MCH 30.8 pg (25.7-33.7); MCHC 33.6 g/dl (32.0-35.9); MEAN CELL VOLUME 91.7 fl (80-96); MONO % 7.9 % (3.8-10.2); NEUT % 47.4 % (42.8-82.8); PLATELET COUNT 276 K/MM3 (134-434); RBC 3.16 M/mm3 (4.00-5.60); RDW 18.4 % (11.9-15.9); WHITE BLOOD COUNT 6.5 K/mm3 (4.0-10.0)
[2018-04-26 08:06] LABS: CHLORIDE 103 mmol/L (98-107); POTASSIUM 4.5 mmol/L (3.5-5.1); SODIUM 137 mmol/L (136-145)
--- NOTE | 2018-04-26 08:10 | PN ---
Progress Note, Physician Chief Complaint: edema History of Present Illness: denies sob, orthopnea. profuse urination yest after iv lasix edema resolved no cp no cigs - Current Medication List Current Medications: Active Medications Amlodipine Besylate (Norvasc -) 10 mg PO DAILY [facility] Last Admin: 04/25/18 10:16 Dose: 10 mg Atorvastatin Calcium (Lipitor -) 10 mg PO HS [facility] Last Admin: 04/25/18 21:05 Dose: 10 mg Folic Acid (Folic Acid -) 2 mg PO DAILY [facility] Last Admin: 04/25/18 10:16 Dose: 2 mg Furosemide (Lasix Injection -) 40 mg IVPUSH DAILY [facility] Losartan Potassium (Cozaar -) 100 mg PO DAILY [facility] Last Admin: 04/25/18 10:16 Dose: 100 mg Metoprolol Succinate (Toprol Xl -) 50 mg PO DAILY [facility] Non-Formulary Medication (Mesalamine [Lialda]) 1.2 gm PO BID [facility] Pantoprazole Sodium (Protonix -) 40 mg PO DAILY [facility] Spironolactone (Aldactone -) 25 mg PO DAILY [facility] Last Admin: 04/25/18 10:16 Dose: 25 mg - Objective Vital Signs: Vital Signs Temperature 99.3 F 04/26/18 05:19 Pulse Rate 81 04/26/18 05:19 Respiratory Rate 18 04/26/18 05:19 Blood Pressure 117/64 04/26/18 05:19 O2 Sat by Pulse Oximetry (%) 94 L 04/25/18 23:00 Constitutional: Yes: No Distress, Calm Eyes: No: Sclera Icterus HENT: No: Nasal Congestion Cardiovascular: Yes: Regular Rate and Rhythm, S1, S2, Other (PMI non diplaced). No: JVD, Gallop, Murmur Respiratory: Yes: CTA Bilaterally. No: Accessory Muscle Use, Rales, Wheezes Gastrointestinal: Yes: Normal Bowel Sounds, Soft. No: Tenderness Musculoskeletal: Yes: Other (No kyphosis) Extremities: No: Cold, Cyanosis Edema: No Integumentary: No: Jaundice Neurological: Yes: Alert, Oriented (x3) Psychiatric: No: Agitated Labs: CBC, BMP 04/26/18 06:00 INR, PTT INR 1.19 (0.82-1.09) H 04/25/18 02:53 Assessment/Plan CXR: no effusions. mild cephalization noted, new vs prior. mild incr markings bases is unchanged vs priors echo 04/2018: 1+ lve. EF 55-60%. E/A reversal. mild-mod RVE. unable to assess rv function. 1+ mr. tele: NSR with frequent PVCs. NSVT run 5b ASSESSMENT/PLAN: 72 M, HTN, HL, NICM S/P medtronic ICD 2014, now with normalization of EF who p/ w BRBPR. s/p LGIB (rectal bleeding) 04/27: - required 3 units PRBCs then s/p colonoscopy--dx per GI diverticulosis associated colitis versus IBD presumed NICM s/p medtronic ICD for primary prevention, EF now normalized. - last icd check in March --> nl fn/lead parameters, no arrhythmias. - dilated NICM dx on 12/2014 echo. EF at the time was 28%. non-obs cad on cath at that time. eventually underwent ICD for primary prevention. - digoxin held for normalized LVEF, hence no longer indicated - home cardiac meds: toprol 50, losartan 100, aldactone 25, lasix 20 bid, norvasc 10, simva 20 - currently here with dependent LE edema, new for him. also decr E.T. (on stairs ) of late. - BNP here 4900, vs 1900 prior (2014). - CXR c/w mild pulm venous congestion suspected on my review - suspect JVD on exam though TDS (prominent SCM muscle) - suspect decompensated CHF--? HFpEF vs primarily RV failure syndrome - wt 192 lbs on discharge 04/17. pt does not monitor home wt or know recent trend. no wt done on DOA as ordered. - 04/26: wt 182. no more JVD or edema. bun/creat/bicarb normal - rpt lasix 40 IV today. - pt advised to ambulate halls mult times--if no sob with ambulation, he can be discharged home. - i advised him he should change home lasix to 40 qd upon discharge (for better diuretic efficacy and also to avoid constant nocturia that he c/o on 20 bid dosing) - i advised him we should incr his toprol dose to 100mg qd, with max target dose 200 qd given proven benefits at preventing recurrent chf episodes like this one. - will review recent echo done here - pt advised that dr mo is a rhythm doctor and does not manage CHF. advised pt he should see me in 2 weeks to monitor chf status and meds (he verbalized understanding of all above instructions) - continue home losartan, spironolactone doses VTach: - frequent PVCs on tele, 3 beat run - protected by ICD in place - K/Mag at aggressive targets - BB, HF optimization as doing HTN - bp controlled - continue home meds HL - resume statin anemia: - counts stable vs recent baseline - per hospitalist
[2018-04-26 08:27] LABS: ALBUMIN 1.8 g/dl (3.4-5.0); ALK PHOS 52 U/L (45-117); ANION GAP 4 (8-16); BILIRUBIN,TOTAL 0.3 mg/dL (0.2-1.0); BLOOD UREA NITROGEN 11 mg/dL (7-18); CALCIUM 8.1 mg/dL (8.5-10.1); CO2 30 mmol/L (21-32); GLUCOSE,RANDOM 81 mg/dL (74-106); SGOT/AST 33 U/L (15-37); SGPT/ALT 27 U/L (12-78); TOT PROT 8.8 g/dl (6.4-8.2)
[2018-04-26] MEDS: FOLIC ACID 1 MG TABLET (FP) PO SCH (09:40)
[2018-04-26] MEDS: SPIRONOLACTONE 25 MG TABLET (FP) PO SCH (09:40)
[2018-04-26] MEDS: LOSARTAN POTASSIUM 50 MG TABLET (FP) PO SCH (09:40)
[2018-04-26] MEDS: amLODIPine BESYLATE 10 MG TABLET (FP) PO SCH (09:40)
[2018-04-26] MEDS ORDERED: PANTOPRAZOLE 40 MG TABLET (FP) PO SCH (10:00)
[2018-04-26] MEDS ORDERED: FUROSEMIDE 40 MG/4 ML INJECTABLE VIAL IVPUSH SCH (10:00)
[2018-04-26 11:35] VITALS: BP 112/58; PULSE 84; TEMP 98.2
--- NOTE | 2018-04-26 12:26 | DS ---
Physical Examination Vital Signs: Vital Signs Temperature 98.2 F 04/26/18 09:00 Pulse Rate 84 04/26/18 09:00 Respiratory Rate 18 04/26/18 09:00 Blood Pressure 112/58 04/26/18 09:00 O2 Sat by Pulse Oximetry (%) 97 04/26/18 09:00 Findings/Remarks: no SOB or CP . per RN when he walked in hallway after urinating 1000 cc , he was very SOB and needed to increase his oxygen PE: NAD , flat affect Cv: RRR Lungs: CTAB Ext: no edema Labs: CBC, BMP 04/26/18 06:00 04/26/18 06:00 Discharge Summary Reason For Visit: UTI, ELEVATED TROPONIN Current Active Problems CHF (congestive heart failure) (Acute) Hospital Course: 72 y/o man with h/o NICM s/p ICD p/w and recent GI bleed from diverticulosis , who presented with SOB. at presentation he was found to have acute CHF exacerbation with mild troponin leak.he was diuresed with IV lasix and his Sx improved . he was seen by card . his toprol was increased to 100 daily . today he was very SOB when he walked , and had to increase his oxygen dosing. so he was felt not to be ready to go home and to need mor IV lasix. he refused to stay and decided toleave AMA , understanding that CHF might get worse. his home dose lasix was increased from 20 to 40 daily he was found to have pyuria , no sx , urine cx neg . NO abx condition improved left AMA f/u with card and PCP 30 min Condition: Stable - Instructions Diet, Activity, Other Instructions: please follow with Dr. mcclelland follow with [facility] take lasix 40 mg instead of 20 daily toprol increased to 100 daily scripts sent to our pharmacy Referrals: Thomas Elizabeth [Primary Care Provider] - Charlie Mcclelland MD [Staff Physician] - 1 Week Disposition: AGAINST MEDICAL ADVICE - Home Medications Comprehensive Discharge Medication List: Ambulatory Orders Amlodipine Besylate 10 mg PO DAILY 04/04/18 Digoxin 125 mcg PO DAILY 04/04/18 Folic Acid 1 mg PO DAILY 04/04/18 Losartan Potassium 100 mg PO DAILY 04/04/18 Simvastatin 20 mg PO DAILY 04/04/18 Spironolactone 25 mg PO DAILY 04/04/18 Furosemide 40 mg PO DAILY #60 tablet 04/26/18 Metoprolol Succinate [Toprol XL -] 100 mg PO DAILY #60 tab.sr.24h 04/26/18 This patient is new to me today: Yes Date on this admission: 04/26/18 Emergency Visit: Yes ED Registration Date: 04/25/18 Care time: The patient presented to the Emergency Department on the above date and was hospitalized for further evaluation of their emergent condition. Critical Care patient: No - Discharge Referral Referred to [facility] Med P.C.: No
== END 2018-04-26 14:54 | disposition left against medical advice (07) ==
LOC: JER 00:01 → JERBED 06:00 → UNDOADMOB 06:09 → J4W 08:08
PROVIDERS: ADMIT Internal Medicine; ATTEND Internal Medicine
PROC: 3E03329 Introduction of Other Anti-infective into Peripheral Vein, Percutaneous Approach (ICD-10-PCS; principal; 2018-04-25)
PROC: 3E033GC Introduction of Other Therapeutic Substance into Peripheral Vein, Percutaneous Approach (ICD-10-PCS; 2018-04-25)
PROC: 3E013GC Introduction of Other Therapeutic Substance into Subcutaneous Tissue, Percutaneous Approach (ICD-10-PCS; 2018-04-25)
DX: R77.8 Other specified abnormalities of plasma proteins (principal); I50.9 Heart failure, unspecified; I10 Essential (primary) hypertension; I42.8 Other cardiomyopathies; I47.2 Ventricular tachycardia; E78.5 Hyperlipidemia, unspecified; E83.42 Hypomagnesemia; N39.0 Urinary tract infection, site not specified; D64.9 Anemia, unspecified; Z95.810 Presence of automatic (implantable) cardiac defibrillator
CPT/HCPCS: 36415; 71046-TC-FY; 80053; 81003; 81015; 82550; 83735; 83880; 84100; 84484; 85025; 85610; 87086; 93005; 93010; 93970-TC; 96365; 96372; 96375; 96376; 99284-25; G0378; J1644

== ENCOUNTER 2022-12-19 10:29 | Inpatient (IN) | payer OTHER ==
[2022-12-19 10:47] VITALS: BMI 35.4
[2022-12-19] MEDS ORDERED: MECLIZINE HCL 25 MG TABLET (FP) PO ONE (11:32)
[2022-12-19] MEDS ORDERED: METOCLOPRAMIDE HCL INJECTION 10 MG/2 ML VIAL IVPB ONE (11:33)
[2022-12-19] MEDS ORDERED: MECLIZINE HCL 25 MG TABLET (FP) ONE (11:48)
[2022-12-19] MEDS ORDERED: METOCLOPRAMIDE HCL INJECTION 10 MG/2 ML VIAL ONE (11:48)
[2022-12-19 12:00] LABS: BASO % 0.8 % (0-2.0); HEMOGLOBIN 14.9 GM/dL (11.7-16.9); LYMPH % 22.7 % (8-40); MCH 33.5 pg (25.7-33.7); MCHC 33.9 g/dl (32.0-35.9); MEAN PLT VOLUME 8.6 fl (7.5-11.1); MONO % 11.3 % (3.8-10.2); NEUT % 64.2 % (42.8-82.8); PLATELET COUNT 254 10^3/uL (134-434); RBC 4.44 M/mm3 (4.00-5.60); RDW 14.2 % (11.9-15.9); WHITE BLOOD COUNT 7.7 K/mm3 (4.0-10.0)
[2022-12-19 12:21] LABS: BLOOD UREA NITROGEN 15.5 mg/dL (7-18)
[2022-12-19 12:22] LABS: ALBUMIN 2.9 g/dl (3.4-5.0)
[2022-12-19 12:25] LABS: CREATININE 1.3 mg/dL (0.55-1.3)
[2022-12-19 12:26] LABS: BILIRUBIN,TOTAL 0.6 mg/dL (0.2-1); TOT PROT 7.5 g/dl (6.4-8.2)
[2022-12-19] MEDS: ASPIRIN 81 MG CHEWABLE TABLETS PO SCH (16:07)
[2022-12-19] MEDS ORDERED: ALBUTEROL SO4 2.5/IPRATROPIUM 0.5 INH SOL 3 ML VIAL.NEB. NEB SCH (16:30)
[2022-12-19] MEDS ORDERED: ASPIRIN 81 MG CHEWABLE TABLETS ONE (16:30)
[2022-12-19] MEDS: APIXABAN 5 MG TABLET PO SCH (21:26)
[2022-12-20] MEDS ORDERED: ADENOSINE 6 MG/2 ML IVPUSH ONE ×2 (01:06→01:11)
[2022-12-20] MEDS ORDERED: METOPROLOL TARTRATE 5 MG/5 ML VIAL IVPUSH ONE (01:17)
[2022-12-20] MEDS ORDERED: METOPROLOL TARTRATE 5 MG/5 ML VIAL ONE (01:18)
[2022-12-20] MEDS ORDERED: AMIODARONE HCL 150 MG/3 ML VIAL IVPUSH ONE (01:52)
[2022-12-20] MEDS ORDERED: AMIODARONE IN DEXTROSE,ISO-OSM 150 MG/100 ML BAG IVPB ONE (01:55)
[2022-12-20] MEDS ORDERED: AMIODARONE IN DEXTROSE,ISO-OSM 360 MG/200 ML BAG IV ONE ×2 (03:00→08:30)
[2022-12-20 03:20] LABS: CHLORIDE 109 mmol/L (98-107); SODIUM 141 mmol/L (136-145)
[2022-12-20 03:22] LABS: CALCIUM 8.8 mg/dL (8.5-10.1)
[2022-12-20 03:23] LABS: ALBUMIN 2.8 g/dl (3.4-5.0); ANION GAP 8 MMOL/L (8-16); BLOOD UREA NITROGEN 23.6 mg/dL (7-18); GLUCOSE,RANDOM 111 mg/dL (74-106)
[2022-12-20 03:25] LABS: SGPT/ALT 44 U/L (13-61)
[2022-12-20 03:26] LABS: CREATININE 1.4 mg/dL (0.55-1.3); PHOSPHOROUS 3.7 mg/dL (2.5-4.9); SGOT/AST 24 U/L (15-37)
[2022-12-20 03:27] LABS: BILIRUBIN,TOTAL 0.4 mg/dL (0.2-1); TOT PROT 6.9 g/dl (6.4-8.2)
[2022-12-20 03:29] LABS: ALK PHOS 62 U/L (45-117)
[2022-12-20] MEDS: LOSARTAN POTASSIUM 50 MG TABLET PO SCH (09:19)
[2022-12-20] MEDS: FUROSEMIDE 20 MG TABLET (FP) PO SCH (09:20)
[2022-12-20] MEDS: ASPIRIN 81 MG CHEWABLE TABLETS PO SCH (09:20)
[2022-12-20] MEDS: FOLIC ACID 1 MG TABLET (FP) PO SCH (09:20)
[2022-12-20] MEDS: SPIRONOLACTONE 25 MG TABLET PO SCH (09:20)
[2022-12-20] MEDS: APIXABAN 5 MG TABLET PO SCH ×2 (09:20→21:35)
[2022-12-20 09:26] LABS: CO2 1 mmol/L (21-32); MAGNESIUM 0.8 mg/dL (1.8-2.4)
[2022-12-20] MEDS ORDERED: MAGNESIUM OXIDE 400 MG TABLET (FP) PO ONE (10:30)
[2022-12-20] MEDS: BICTEGRAV/EMTRICIT/TENOFOV (BIKTARVY) 50-200-25 MG TABLET PO SCH (10:37)
[2022-12-20] MEDS ORDERED: MAGNESIUM SULF 50% (8.12 MEQ/2 ML-1 GM VIAL) IVPB ONE (21:34)
[2022-12-20] MEDS: AMIODARONE HCL 200 MG TABLET PO SCH (21:35)
[2022-12-21 02:21] LABS: ALBUMIN 2.9 g/dl (3.4-5.0); CALCIUM 8.8 mg/dL (8.5-10.1); MAGNESIUM 2.8 mg/dL (1.8-2.4)
[2022-12-21 02:22] LABS: BLOOD UREA NITROGEN 20.5 mg/dL (7-18)
[2022-12-21 02:25] LABS: CREATININE 1.3 mg/dL (0.55-1.3)
[2022-12-21 02:26] LABS: BILIRUBIN,TOTAL 0.4 mg/dL (0.2-1); TOT PROT 7.2 g/dl (6.4-8.2)
[2022-12-21 07:56] LABS: HEMATOCRIT 42.7 % (35.4-49); HEMOGLOBIN 14.6 GM/dL (11.7-16.9); MCH 33.7 pg (25.7-33.7); MCHC 34.1 g/dl (32.0-35.9); MEAN CELL VOLUME 98.8 fl (80-96); MEAN PLT VOLUME 8.3 fl (7.5-11.1); PLATELET COUNT 245 10^3/uL (134-434); RBC 4.32 M/mm3 (4.00-5.60); RDW 14.4 % (11.9-15.9); WHITE BLOOD COUNT 7.3 K/mm3 (4.0-10.0)
[2022-12-21] MEDS: ASPIRIN 81 MG CHEWABLE TABLETS PO SCH (09:39)
[2022-12-21] MEDS: AMIODARONE HCL 200 MG TABLET PO SCH ×2 (09:39→21:06)
[2022-12-21] MEDS: FUROSEMIDE 20 MG TABLET (FP) PO SCH (09:40)
[2022-12-21] MEDS: FOLIC ACID 1 MG TABLET (FP) PO SCH (09:40)
[2022-12-21] MEDS: LOSARTAN POTASSIUM 50 MG TABLET PO SCH (09:40)
[2022-12-21] MEDS: BICTEGRAV/EMTRICIT/TENOFOV (BIKTARVY) 50-200-25 MG TABLET PO SCH (09:40)
[2022-12-21] MEDS: SPIRONOLACTONE 25 MG TABLET PO SCH (09:40)
[2022-12-21] MEDS: APIXABAN 5 MG TABLET PO SCH ×2 (09:40→21:06)
[2022-12-21] MEDS ORDERED: FUROSEMIDE 40 MG/4 ML INJECTABLE VIAL IVPUSH ONE (16:00)
[2022-12-21] MEDS: MECLIZINE HCL 25 MG TABLET (FP) PO PRN (16:31)
[2022-12-22] MEDS: MECLIZINE HCL 25 MG TABLET (FP) PO PRN (00:49)
[2022-12-22] MEDS: AMIODARONE HCL 200 MG TABLET PO SCH ×2 (09:14→22:03)
[2022-12-22] MEDS: FUROSEMIDE 20 MG TABLET (FP) PO SCH (09:14)
[2022-12-22] MEDS: ASPIRIN 81 MG CHEWABLE TABLETS PO SCH (09:14)
[2022-12-22] MEDS: FOLIC ACID 1 MG TABLET (FP) PO SCH (09:15)
[2022-12-22] MEDS: APIXABAN 5 MG TABLET PO SCH ×2 (09:15→22:03)
[2022-12-22] MEDS: BICTEGRAV/EMTRICIT/TENOFOV (BIKTARVY) 50-200-25 MG TABLET PO SCH (09:15)
[2022-12-22] MEDS: SPIRONOLACTONE 25 MG TABLET PO SCH (09:15)
[2022-12-22] MEDS: LOSARTAN POTASSIUM 50 MG TABLET PO SCH (09:15)
[2022-12-22] MEDS ORDERED: ALBUTEROL SO4 2.5/IPRATROPIUM 0.5 INH SOL 3 ML VIAL.NEB. NEB PRN (09:43)
[2022-12-22] MEDS ORDERED: BUDESONIDE/FORMETEROL FUMARATE 160/4.5 mcg INHALER IH SCH (10:00)
[2022-12-22] MEDS ORDERED: FUROSEMIDE 20 MG TABLET (FP) PO SCH (12:40)
[2022-12-23 09:04] LABS: CALCIUM 8.6 mg/dL (8.5-10.1)
[2022-12-23 09:05] LABS: BLOOD UREA NITROGEN 25.3 mg/dL (7-18)
[2022-12-23 09:08] LABS: CREATININE 1.5 mg/dL (0.55-1.3)
[2022-12-23 09:22] VITALS: RESP 18
[2022-12-23] MEDS: LOSARTAN POTASSIUM 50 MG TABLET PO SCH (09:22)
[2022-12-23] MEDS: AMIODARONE HCL 200 MG TABLET PO SCH (09:22)
[2022-12-23] MEDS: APIXABAN 5 MG TABLET PO SCH (09:23)
[2022-12-23] MEDS: SPIRONOLACTONE 25 MG TABLET PO SCH (09:23)
[2022-12-23] MEDS: FOLIC ACID 1 MG TABLET (FP) PO SCH (09:23)
[2022-12-23] MEDS: ASPIRIN 81 MG CHEWABLE TABLETS PO SCH (09:23)
[2022-12-23] MEDS: BICTEGRAV/EMTRICIT/TENOFOV (BIKTARVY) 50-200-25 MG TABLET PO SCH (09:23)
[2022-12-23 15:01] VITALS: BP 109/61; PULSE 64; TEMP 98.7
== END 2022-12-23 17:19 | disposition home or self-care (01) | DRG 309 ==
LOC: JER 10:29 → JERBED 14:30 → J4W 18:01
PROVIDERS: ADMIT Internal Medicine; ATTEND Internal Medicine
DX: I47.1 Supraventricular tachycardia (principal); B20 Human immunodeficiency virus [HIV] disease; I42.8 Other cardiomyopathies; I50.22 Chronic systolic (congestive) heart failure; R42 Dizziness and giddiness; E78.5 Hyperlipidemia, unspecified; I48.91 Unspecified atrial fibrillation; K57.90 Diverticulosis of intestine, part unspecified, without perforation or abscess without bleeding; G93.89 Other specified disorders of brain; I11.0 Hypertensive heart disease with heart failure; I95.9 Hypotension, unspecified; D64.9 Anemia, unspecified; Z86.73 Personal history of transient ischemic attack (TIA), and cerebral infarction without residual deficits; Z95.810 Presence of automatic (implantable) cardiac defibrillator
CPT/HCPCS: 0241U-QW; 36415; 70450-TC; 71045-TC-FY; 80048; 80053; 82550; 82962; 83735; 84100; 84443; 84484; 85025; 85027; 93005; 93010; 93306-TC; 93880-TC; 94640; 99285-25; J0153; J0282

== ENCOUNTER 2023-07-18 15:11 | Observation (INO) | payer OTHER ==
[2023-07-18 15:30] VITALS: BMI 38.4
[2023-07-18 17:39] LABS: BASO % 0.9 % (0-2.0); EOS % 1.1 % (0-4.5); HEMATOCRIT 47.9 % (35.4-49); HEMOGLOBIN 15.6 GM/dL (11.7-16.9); LYMPH % 19.5 % (8-40); MCH 30.9 pg (25.7-33.7); MCHC 32.5 g/dl (32.0-35.9); MEAN CELL VOLUME 94.9 fl (80-96); MEAN PLT VOLUME 8.1 fl (7.5-11.1); MONO % 11.3 % (3.8-10.2); NEUT % 67.2 % (42.8-82.8); PLATELET COUNT 256 10^3/uL (134-434); RBC 5.04 M/mm3 (4.00-5.60); RDW 14.7 % (11.9-15.9); WHITE BLOOD COUNT 8.1 K/mm3 (4.0-10.0)
[2023-07-18 17:44] LABS: EPI CELLS 5 /uL (0-25.1); HYALINE CASTS 1 /uL (0-3.1); PH,URINE 6.5 (5.0-8.0); URINE APPEARANCE CLEAR; URINE BACTERIA >9,000 /uL (0-1359); URINE BILIRUBIN NEGATIVE (NEGATIVE); URINE COLOR YELLOW; URINE GLUCOSE (UA) NEGATIVE (NEGATIVE); URINE KETONE TRACE (NEGATIVE); URINE LEUK ESTERASE 2+ (NEGATIVE); URINE NITRITE POSITIVE (NEGATIVE); URINE PROTEIN TRACE (NEGATIVE); URINE RBC 8 /uL (0-23.9); URINE WBC 211 /uL (0-25.8)
[2023-07-18 18:05] LABS: ALBUMIN 2.8 g/dl (3.4-5.0); CALCIUM 8.9 mg/dL (8.5-10.1); MAGNESIUM 2.3 mg/dL (1.8-2.4)
[2023-07-18 18:08] LABS: CREATININE 1.5 mg/dL (0.55-1.3)
[2023-07-18 18:10] LABS: BILIRUBIN,TOTAL 0.8 mg/dL (0.2-1); TOT PROT 7.8 g/dl (6.4-8.2)
[2023-07-18 18:13] LABS: N-TERMINAL BNP 925.3 pg/ml (5-450)
[2023-07-18] MEDS ORDERED: CEFTRIAXONE 1,000 MG in DEXTROSE 5%-WATER - 50 ML IVPB ONE (19:22)
[2023-07-18] MEDS ORDERED: CEFTRIAXONE 1 GM/50 ML BAG ONE (19:35)
[2023-07-18 20:07] LABS: POTASSIUM 4.6 mmol/L (3.5-5.1)
[2023-07-18 20:09] LABS: CALCIUM 8.8 mg/dL (8.5-10.1)
[2023-07-18 20:10] LABS: BLOOD UREA NITROGEN 20.5 mg/dL (7-18)
[2023-07-18 20:13] LABS: CREATININE 1.5 mg/dL (0.55-1.3)
[2023-07-18 20:15] LABS: BILIRUBIN,TOTAL 0.3 mg/dL (0.2-1); TOT PROT 7.9 g/dl (6.4-8.2)
[2023-07-18] MEDS ORDERED: ALBUTEROL SO4 0.083% IH SOL 2.5 MG/3 ML VIAL.NEB. NEB PRN (21:49)
[2023-07-18] MEDS: METOPROLOL TARTRATE 25 MG TABLET (FP) PO SCH (23:29)
[2023-07-18] MEDS: APIXABAN 5 MG TABLET PO SCH (23:29)
[2023-07-19] MEDS ORDERED: FUROSEMIDE 20 MG TABLET (FP) PO SCH (06:00)
[2023-07-19 08:28] LABS: BASO % 0.7 % (0-2.0); EOS % 1.8 % (0-4.5); HEMATOCRIT 47.3 % (35.4-49); HEMOGLOBIN 15.2 GM/dL (11.7-16.9); LYMPH % 20.6 % (8-40); MCH 31.3 pg (25.7-33.7); MCHC 32.1 g/dl (32.0-35.9); MEAN CELL VOLUME 97.5 fl (80-96); MEAN PLT VOLUME 8.9 fl (7.5-11.1); MONO % 10.6 % (3.8-10.2); NEUT % 66.3 % (42.8-82.8); PLATELET COUNT 262 10^3/uL (134-434); RBC 4.85 M/mm3 (4.00-5.60); RDW 14.8 % (11.9-15.9)
[2023-07-19 08:39] LABS: POTASSIUM 4.7 mmol/L (3.5-5.1)
[2023-07-19 08:46] LABS: ALBUMIN 2.9 g/dl (3.4-5.0); BLOOD UREA NITROGEN 23.6 mg/dL (7-18)
[2023-07-19 08:49] LABS: CREATININE 1.4 mg/dL (0.55-1.3)
[2023-07-19 08:51] LABS: BILIRUBIN,TOTAL 0.6 mg/dL (0.2-1); TOT PROT 7.8 g/dl (6.4-8.2)
[2023-07-19] MEDS: FOLIC ACID 1 MG TABLET (FP) PO SCH (09:10)
[2023-07-19] MEDS: SPIRONOLACTONE 25 MG TABLET PO SCH (09:11)
[2023-07-19] MEDS: METOPROLOL TARTRATE 25 MG TABLET (FP) PO SCH ×2 (09:11→21:51)
[2023-07-19] MEDS: APIXABAN 5 MG TABLET PO SCH ×2 (09:11→21:53)
[2023-07-19] MEDS: FUROSEMIDE 40 MG/4 ML INJECTABLE VIAL IVPUSH SCH (11:26)
[2023-07-19] MEDS: CEFTRIAXONE 1 GM in DEXTROSE 5%-WATER - 50 ML IVPB SCH (11:26)
[2023-07-19] MEDS: POLYETHYLENE GLYCOL (HEALTHYLAX) 3350 17 GM PACKET PO SCH ×2 (11:26→21:50)
[2023-07-19] MEDS: SENNOSIDES 8.6MG TABLET (FP) PO SCH ×2 (11:26→21:54)
[2023-07-19] MEDS: DOCUSATE SODIUM 100 MG CAPSULE (FP) PO SCH ×2 (14:38→21:54)
[2023-07-19] MEDS: ATORVASTATIN CA 10 MG TABLET (FP) PO SCH (21:54)
[2023-07-19] MEDS: ACETAMINOPHEN 325 MG TABLET (FP) PO PRN (23:26)
[2023-07-20] MEDS: DOCUSATE SODIUM 100 MG CAPSULE (FP) PO SCH ×3 (05:35→21:14)
[2023-07-20 08:47] LABS: POTASSIUM 4.8 mmol/L (3.5-5.1)
[2023-07-20 08:49] LABS: BASO % 0.8 % (0-2.0); HEMATOCRIT 48.3 % (35.4-49); HEMOGLOBIN 15.4 GM/dL (11.7-16.9); LYMPH % 19.1 % (8-40); MCH 30.6 pg (25.7-33.7); MCHC 31.8 g/dl (32.0-35.9); MEAN CELL VOLUME 96.3 fl (80-96); MEAN PLT VOLUME 8.6 fl (7.5-11.1); MONO % 8.6 % (3.8-10.2); NEUT % 69.5 % (42.8-82.8); PLATELET COUNT 264 10^3/uL (134-434); RBC 5.02 M/mm3 (4.00-5.60); RDW 14.8 % (11.9-15.9); WHITE BLOOD COUNT 7.6 K/mm3 (4.0-10.0)
[2023-07-20 08:52] LABS: CALCIUM 9.3 mg/dL (8.5-10.1)
[2023-07-20 08:53] LABS: ALBUMIN 2.9 g/dl (3.4-5.0); BLOOD UREA NITROGEN 22.3 mg/dL (7-18)
[2023-07-20 08:56] LABS: BILIRUBIN,TOTAL 0.7 mg/dL (0.2-1); CREATININE 1.4 mg/dL (0.55-1.3); TOT PROT 7.8 g/dl (6.4-8.2)
[2023-07-20] MEDS: METOPROLOL TARTRATE 25 MG TABLET (FP) PO SCH ×2 (09:40→21:14)
[2023-07-20] MEDS: SENNOSIDES 8.6MG TABLET (FP) PO SCH ×2 (09:40→21:14)
[2023-07-20] MEDS: CEFTRIAXONE 1 GM in DEXTROSE 5%-WATER - 50 ML IVPB SCH (09:40)
[2023-07-20] MEDS: SPIRONOLACTONE 25 MG TABLET PO SCH (09:40)
[2023-07-20] MEDS: FOLIC ACID 1 MG TABLET (FP) PO SCH (09:40)
[2023-07-20] MEDS: FUROSEMIDE 40 MG/4 ML INJECTABLE VIAL IVPUSH SCH (09:40)
[2023-07-20] MEDS: POLYETHYLENE GLYCOL (HEALTHYLAX) 3350 17 GM PACKET PO SCH ×2 (09:40→21:14)
[2023-07-20] MEDS: APIXABAN 5 MG TABLET PO SCH ×2 (09:40→21:14)
[2023-07-20] MEDS: ACETAMINOPHEN WITH CODEINE 300MG/30MG TABLET PO ONE ×2 (15:50→15:58)
[2023-07-20] MEDS: ACETAMINOPHEN 325 MG TABLET (FP) PO PRN (15:57)
[2023-07-20] MEDS: ATORVASTATIN CA 10 MG TABLET (FP) PO SCH (21:14)
[2023-07-20] MEDS: MELATONIN 5 MG TABLETS PO PRN (21:25)
[2023-07-20] MEDS ORDERED: FUROSEMIDE 40 MG/4 ML INJECTABLE VIAL IVPUSH SCH (22:00)
[2023-07-21] MEDS: ACETAMINOPHEN 325 MG TABLET (FP) PO PRN ×2 (03:23→10:16)
[2023-07-21] MEDS: DOCUSATE SODIUM 100 MG CAPSULE (FP) PO SCH ×3 (05:10→22:00)
[2023-07-21 09:15] LABS: INR 1.27 (0.83-1.09); PROTHROMBIN TIME (PATIENT) 14.7 SEC (9.7-13.0)
[2023-07-21 09:16] LABS: ACTIVATED PTT 30.6 SECONDS (25.2-36.5); BASO % 0.6 % (0-2.0); EOS % 2.1 % (0-4.5); HEMOGLOBIN 15.4 GM/dL (11.7-16.9); LYMPH % 24.4 % (8-40); MCH 31.6 pg (25.7-33.7); MCHC 33.4 g/dl (32.0-35.9); MEAN CELL VOLUME 94.6 fl (80-96); MEAN PLT VOLUME 8.2 fl (7.5-11.1); MONO % 12.1 % (3.8-10.2); NEUT % 60.8 % (42.8-82.8); PLATELET COUNT 251 10^3/uL (134-434); RBC 4.86 M/mm3 (4.00-5.60); RDW 14.6 % (11.9-15.9); WHITE BLOOD COUNT 7.2 K/mm3 (4.0-10.0)
[2023-07-21 09:22] LABS: POTASSIUM 5.1 mmol/L (3.5-5.1)
[2023-07-21 09:24] LABS: CALCIUM 9.1 mg/dL (8.5-10.1)
[2023-07-21 09:25] LABS: ALBUMIN 2.8 g/dl (3.4-5.0)
[2023-07-21 09:28] LABS: CREATININE 1.5 mg/dL (0.55-1.3); PHOSPHOROUS 4.4 mg/dL (2.5-4.9)
[2023-07-21 09:29] LABS: BILIRUBIN,TOTAL 0.6 mg/dL (0.2-1)
[2023-07-21 09:30] LABS: TOT PROT 7.5 g/dl (6.4-8.2)
[2023-07-21] MEDS: METOPROLOL TARTRATE 25 MG TABLET (FP) PO SCH ×2 (10:16→22:00)
[2023-07-21] MEDS: SENNOSIDES 8.6MG TABLET (FP) PO SCH ×2 (10:16→22:00)
[2023-07-21] MEDS: POLYETHYLENE GLYCOL (HEALTHYLAX) 3350 17 GM PACKET PO SCH ×2 (10:16→22:00)
[2023-07-21] MEDS: SPIRONOLACTONE 25 MG TABLET PO SCH (10:16)
[2023-07-21] MEDS: BICTEGRAV/EMTRICIT/TENOFOV (BIKTARVY) 50-200-25 MG TABLET PO SCH (10:16)
[2023-07-21] MEDS: APIXABAN 5 MG TABLET PO SCH ×2 (10:16→22:00)
[2023-07-21] MEDS: CEFTRIAXONE 1 GM in DEXTROSE 5%-WATER - 50 ML IVPB SCH (10:17)
[2023-07-21] MEDS: FOLIC ACID 1 MG TABLET (FP) PO SCH (10:17)
[2023-07-21] MEDS: FUROSEMIDE 40 MG TABLET (FP) PO SCH (13:25)
[2023-07-21] MEDS: ATORVASTATIN CA 10 MG TABLET (FP) PO SCH (22:00)
[2023-07-22] MEDS: DOCUSATE SODIUM 100 MG CAPSULE (FP) PO SCH ×3 (05:44→21:09)
[2023-07-22] MEDS: FUROSEMIDE 40 MG TABLET (FP) PO SCH ×2 (05:44→14:17)
[2023-07-22] MEDS: ACETAMINOPHEN 325 MG TABLET (FP) PO PRN ×2 (05:47→21:05)
[2023-07-22] MEDS: METOPROLOL TARTRATE 25 MG TABLET (FP) PO SCH ×2 (11:34→21:05)
[2023-07-22] MEDS: SPIRONOLACTONE 25 MG TABLET PO SCH (11:34)
[2023-07-22] MEDS: FOLIC ACID 1 MG TABLET (FP) PO SCH (11:34)
[2023-07-22] MEDS: BICTEGRAV/EMTRICIT/TENOFOV (BIKTARVY) 50-200-25 MG TABLET PO SCH (11:35)
[2023-07-22] MEDS: SENNOSIDES 8.6MG TABLET (FP) PO SCH ×2 (11:35→21:09)
[2023-07-22] MEDS: APIXABAN 5 MG TABLET PO SCH ×2 (11:35→21:07)
[2023-07-22] MEDS: POLYETHYLENE GLYCOL (HEALTHYLAX) 3350 17 GM PACKET PO SCH ×2 (11:35→21:09)
[2023-07-22] MEDS: ATORVASTATIN CA 10 MG TABLET (FP) PO SCH (21:06)
[2023-07-22] MEDS: MELATONIN 5 MG TABLETS PO PRN (21:06)
[2023-07-23 01:31] VITALS: RESP 18
[2023-07-23] MEDS: DOCUSATE SODIUM 100 MG CAPSULE (FP) PO SCH ×2 (05:57→14:14)
[2023-07-23] MEDS: FUROSEMIDE 40 MG TABLET (FP) PO SCH ×2 (05:57→14:15)
[2023-07-23 09:41] LABS: POTASSIUM 3.9 mmol/L (3.5-5.1)
[2023-07-23 09:57] LABS: CALCIUM 8.7 mg/dL (8.5-10.1)
[2023-07-23 10:04] LABS: CREATININE 1.5 mg/dL (0.55-1.3)
[2023-07-23] MEDS: APIXABAN 5 MG TABLET PO SCH (10:05)
[2023-07-23] MEDS: BICTEGRAV/EMTRICIT/TENOFOV (BIKTARVY) 50-200-25 MG TABLET PO SCH (10:05)
[2023-07-23] MEDS: FOLIC ACID 1 MG TABLET (FP) PO SCH (10:05)
[2023-07-23] MEDS: METOPROLOL TARTRATE 25 MG TABLET (FP) PO SCH (10:05)
[2023-07-23] MEDS: POLYETHYLENE GLYCOL (HEALTHYLAX) 3350 17 GM PACKET PO SCH (10:11)
[2023-07-23] MEDS: SENNOSIDES 8.6MG TABLET (FP) PO SCH (10:11)
[2023-07-23] MEDS: SPIRONOLACTONE 25 MG TABLET PO SCH (11:27)
[2023-07-23 15:03] VITALS: BP 119/65; PULSE 80; TEMP 98.2
== END 2023-07-23 16:09 | disposition home health service (06) ==
LOC: JER 15:11 → JERBED 20:38 → J4S 22:55 → UNDODISOB 07-21 17:29
PROVIDERS: ADMIT Internal Medicine; ATTEND Internal Medicine
PROC: 3E03329 Introduction of Other Anti-infective into Peripheral Vein, Percutaneous Approach (ICD-10-PCS; principal; 2023-07-18)
PROC: 3E033GC Introduction of Other Therapeutic Substance into Peripheral Vein, Percutaneous Approach (ICD-10-PCS; 2023-07-18)
DX: I50.23 Acute on chronic systolic (congestive) heart failure (principal); R06.00 Dyspnea, unspecified; I10 Essential (primary) hypertension; E78.00 Pure hypercholesterolemia, unspecified; N39.0 Urinary tract infection, site not specified; B20 Human immunodeficiency virus [HIV] disease; E66.9 Obesity, unspecified; Z95.810 Presence of automatic (implantable) cardiac defibrillator; I48.91 Unspecified atrial fibrillation
CPT/HCPCS: 0241U-QW; 36415; 71045-TC-FY; 80048; 80053; 81003; 83615; 83735; 83880; 84100; 84484; 85025; 85610; 85730; 87086; 87186; 93005; 93010; 94010; 94761; 96365; 96366; 96375; 97116-GP; 97161-GP; 99285-25; G0378

== ENCOUNTER 2023-08-17 11:58 | Inpatient (IN) | payer OTHER ==
[2023-08-17] MEDS ORDERED: FUROSEMIDE 40 MG/4 ML INJECTABLE VIAL IVPUSH ONE (12:42)
[2023-08-17] MEDS ORDERED: FUROSEMIDE 40 MG/4 ML INJECTABLE VIAL ONE (12:53)
[2023-08-17] MEDS ORDERED: ACETAMINOPHEN 1000 MG/100 ML BAG IVPB ONE (12:59)
[2023-08-17 13:09] LABS: PH,URINE 5.5 (5.0-8.0); URINE APPEARANCE Clear; URINE BILIRUBIN Negative (NEGATIVE); URINE COLOR Yellow; URINE GLUCOSE (UA) Negative (NEGATIVE); URINE KETONE Trace (NEGATIVE); URINE LEUK ESTERASE 1+ (NEGATIVE); URINE NITRITE Negative (NEGATIVE); URINE PROTEIN 2+ (NEGATIVE); URINE UROBILINOGEN 0.2 mg/dL (0.2-1.0)
[2023-08-17 13:14] LABS: EPI CELLS 3 /uL (0-25.1); HYALINE CASTS 1 /uL (0-3.1); URINE RBC 27 /uL (0-23.9); URINE WBC 253 /uL (0-25.8)
[2023-08-17 13:15] LABS: URINE BACTERIA 441 /uL (0-1359)
[2023-08-17] MEDS ORDERED: ACETAMINOPHEN INJECTION 100 ML IVPB ONE (13:16)
[2023-08-17 13:19] LABS: BASO % 0.5 % (0-2.0); EOS % 1.2 % (0-4.5); HEMATOCRIT 45.2 % (35.4-49); HEMOGLOBIN 15.1 GM/dL (11.7-16.9); LYMPH % 19.2 % (8-40); MCHC 33.3 g/dl (32.0-35.9); MEAN CELL VOLUME 96.1 fl (80-96); MEAN PLT VOLUME 8.2 fl (7.5-11.1); MONO % 11.7 % (3.8-10.2); NEUT % 67.4 % (42.8-82.8); PLATELET COUNT 263 10^3/uL (134-434); RBC 4.71 M/mm3 (4.00-5.60); RDW 15.3 % (11.9-15.9); WHITE BLOOD COUNT 9.6 K/mm3 (4.0-10.0)
[2023-08-17 13:25] LABS: INR 1.28 (0.83-1.09); PROTHROMBIN TIME (PATIENT) 14.8 SEC (9.7-13.0)
[2023-08-17 13:27] LABS: ACTIVATED PTT 32.6 SECONDS (25.2-36.5)
[2023-08-17 13:34] VITALS: BMI 38.4
[2023-08-17 13:41] LABS: CALCIUM 8.1 mg/dL (8.5-10.1); CHLORIDE 108 mmol/L (98-107); SODIUM 136 mmol/L (136-145)
[2023-08-17 13:42] LABS: BLOOD UREA NITROGEN 23.4 mg/dL (7-18); CO2 28 mmol/L (21-32); GLUCOSE,RANDOM 104 mg/dL (74-106)
[2023-08-17 13:43] LABS: ALBUMIN 2.6 g/dl (3.4-5.0)
[2023-08-17 13:46] LABS: CREATININE 1.4 mg/dL (0.55-1.3); SGOT/AST 74 U/L (15-37); SGPT/ALT 38 U/L (13-61)
[2023-08-17 13:48] LABS: BILIRUBIN,TOTAL 0.3 mg/dL (0.2-1); TOT PROT 7.8 g/dl (6.4-8.2)
[2023-08-17 13:49] LABS: ALK PHOS 60 U/L (45-117)
[2023-08-17 13:50] LABS: N-TERMINAL BNP 1204.3 pg/ml (5-450)
[2023-08-17 13:51] LABS: ANION GAP 1 MMOL/L (8-16); POTASSIUM 6.7 mmol/L (3.5-5.1)
[2023-08-17] MEDS ORDERED: PIPERACILLIN/TAZOB 3.375 GM 3.375 GM in DEXTROSE 5%-WATER - 50 ML IVPB ONE (14:08)
[2023-08-17] MEDS ORDERED: PIPERACILLIN/TAZOB 3.375 GM 3.375 GM/50 ML BAG IVPB ONE ×2 (14:19→21:59)
[2023-08-17 15:28] LABS: POTASSIUM 5.3 mmol/L (3.5-5.1)
[2023-08-17 15:29] LABS: CALCIUM 8.5 mg/dL (8.5-10.1)
[2023-08-17 15:30] LABS: BLOOD UREA NITROGEN 23.1 mg/dL (7-18)
[2023-08-17 15:33] LABS: CREATININE 1.3 mg/dL (0.55-1.3)
[2023-08-17] MEDS ORDERED: GABAPENTIN 100 MG CAPSULE PO ONE (17:16)
[2023-08-17] MEDS ORDERED: GABAPENTIN 100 MG CAPSULE ONE (17:21)
[2023-08-17 21:15] LABS: POTASSIUM 4.2 mmol/L (3.5-5.1)
[2023-08-17 21:17] LABS: ALBUMIN 2.7 g/dl (3.4-5.0); BLOOD UREA NITROGEN 22.9 mg/dL (7-18); CALCIUM 8.3 mg/dL (8.5-10.1)
[2023-08-17 21:20] LABS: CREATININE 1.6 mg/dL (0.55-1.3)
[2023-08-17 21:22] LABS: BILIRUBIN,TOTAL 0.2 mg/dL (0.2-1); TOT PROT 7.4 g/dl (6.4-8.2)
[2023-08-18] MEDS ORDERED: APIXABAN 5 MG TABLET PO ONE (01:30)
[2023-08-18] MEDS: metoPROLOL SUCCINATE 25 MG TAB.SR.24H (FP) PO SCH ×2 (02:40→22:50)
[2023-08-18] MEDS: SENNOSIDES 8.6MG TABLET (FP) PO SCH ×3 (02:40→22:49)
[2023-08-18] MEDS: ACETAMINOPHEN 325 MG TABLET (FP) PO PRN ×3 (06:05→18:09)
[2023-08-18] MEDS: BICTEGRAV/EMTRICIT/TENOFOV (BIKTARVY) 50-200-25 MG TABLET PO SCH (08:43)
[2023-08-18] MEDS: SPIRONOLACTONE 25 MG TABLET PO SCH (09:26)
[2023-08-18] MEDS: APIXABAN 5 MG TABLET PO SCH ×2 (09:26→22:49)
[2023-08-18] MEDS: FOLIC ACID 1 MG TABLET (FP) PO SCH (09:26)
[2023-08-18] MEDS: FUROSEMIDE 20 MG TABLET (FP) PO SCH (09:26)
[2023-08-18 09:49] LABS: BASO % 0.6 % (0-2.0); EOS % 1.5 % (0-4.5); HEMOGLOBIN 13.7 GM/dL (11.7-16.9); LYMPH % 17.2 % (8-40); MCH 31.1 pg (25.7-33.7); MCHC 31.9 g/dl (32.0-35.9); MEAN CELL VOLUME 97.6 fl (80-96); MEAN PLT VOLUME 8.3 fl (7.5-11.1); NEUT % 76.7 % (42.8-82.8); PLATELET COUNT 248 10^3/uL (134-434); RBC 4.41 M/mm3 (4.00-5.60); RDW 15.2 % (11.9-15.9); WHITE BLOOD COUNT 6.1 K/mm3 (4.0-10.0)
[2023-08-18] MEDS ORDERED: BICTEGRAV/EMTRICIT/TENOFOV (BIKTARVY) 50-200-25 MG TABLET PO SCH (10:00)
[2023-08-18 10:10] LABS: POTASSIUM 4.3 mmol/L (3.5-5.1)
[2023-08-18 10:15] LABS: CALCIUM 8.1 mg/dL (8.5-10.1)
[2023-08-18 10:16] LABS: ALBUMIN 2.6 g/dl (3.4-5.0); BLOOD UREA NITROGEN 18.9 mg/dL (7-18)
[2023-08-18 10:18] LABS: CREATININE 1.2 mg/dL (0.55-1.3)
[2023-08-18 10:20] LABS: BILIRUBIN,TOTAL 0.5 mg/dL (0.2-1)
[2023-08-18] MEDS ORDERED: ACETAMINOPHEN 325 MG TABLET (FP) PO PRN (11:22)
[2023-08-18] MEDS ORDERED: PIPERACILLIN/TAZOB 3.375 GM 3.375 GM in DEXTROSE 5%-WATER - 50 ML IVPB SCH (11:45)
[2023-08-18] MEDS: oxyCODONE HCL 5 MG TABLET PO PRN ×2 (11:56→18:06)
[2023-08-18] MEDS: GABAPENTIN 100 MG CAPSULE PO SCH ×2 (13:35→22:49)
[2023-08-18] MEDS: CEFTRIAXONE 1 GM in DEXTROSE 5%-WATER - 50 ML IVPB SCH (14:15)
[2023-08-18] MEDS: PIPERACILLIN/TAZOB 3.375 GM 3.375 GM in DEXTROSE 5%-WATER - 50 ML IVPB SCH (18:07)
[2023-08-18] MEDS: ATORVASTATIN CA 10 MG TABLET (FP) PO SCH (22:49)
[2023-08-19] MEDS: oxyCODONE HCL 5 MG TABLET PO PRN ×3 (03:52→22:24)
[2023-08-19] MEDS: GABAPENTIN 100 MG CAPSULE PO SCH ×3 (05:56→22:23)
[2023-08-19] MEDS: BICTEGRAV/EMTRICIT/TENOFOV (BIKTARVY) 50-200-25 MG TABLET PO SCH (10:31)
[2023-08-19] MEDS: SPIRONOLACTONE 25 MG TABLET PO SCH (10:32)
[2023-08-19] MEDS: APIXABAN 5 MG TABLET PO SCH ×2 (10:32→22:23)
[2023-08-19] MEDS: SENNOSIDES 8.6MG TABLET (FP) PO SCH ×2 (10:32→22:23)
[2023-08-19] MEDS: FUROSEMIDE 20 MG TABLET (FP) PO SCH (10:32)
[2023-08-19] MEDS: FOLIC ACID 1 MG TABLET (FP) PO SCH (10:33)
[2023-08-19] MEDS: CEFTRIAXONE 1 GM in DEXTROSE 5%-WATER - 50 ML IVPB SCH (10:33)
[2023-08-19] MEDS: metoPROLOL SUCCINATE 25 MG TAB.SR.24H (FP) PO SCH (22:23)
[2023-08-19] MEDS: ATORVASTATIN CA 10 MG TABLET (FP) PO SCH (22:23)
[2023-08-20] MEDS: GABAPENTIN 100 MG CAPSULE PO SCH ×3 (06:57→22:07)
[2023-08-20] MEDS: BICTEGRAV/EMTRICIT/TENOFOV (BIKTARVY) 50-200-25 MG TABLET PO SCH (09:13)
[2023-08-20] MEDS: SENNOSIDES 8.6MG TABLET (FP) PO SCH ×2 (09:13→22:07)
[2023-08-20] MEDS: FUROSEMIDE 20 MG TABLET (FP) PO SCH (09:14)
[2023-08-20] MEDS: CEFTRIAXONE 1 GM in DEXTROSE 5%-WATER - 50 ML IVPB SCH (09:14)
[2023-08-20] MEDS: SPIRONOLACTONE 25 MG TABLET PO SCH (09:14)
[2023-08-20] MEDS: FOLIC ACID 1 MG TABLET (FP) PO SCH (09:14)
[2023-08-20] MEDS: APIXABAN 5 MG TABLET PO SCH ×2 (09:14→22:07)
[2023-08-20] MEDS: oxyCODONE HCL 5 MG TABLET PO PRN (10:39)
[2023-08-20 11:12] VITALS: RESP 18
[2023-08-20] MEDS: ATORVASTATIN CA 10 MG TABLET (FP) PO SCH (22:07)
[2023-08-20] MEDS: metoPROLOL SUCCINATE 25 MG TAB.SR.24H (FP) PO SCH (22:07)
[2023-08-20] MEDS ORDERED: ACETAMINOPHEN 1000 MG/100 ML BAG IVPB ONE (22:55)
[2023-08-21] MEDS: GABAPENTIN 100 MG CAPSULE PO SCH (06:28)
[2023-08-21] MEDS: BICTEGRAV/EMTRICIT/TENOFOV (BIKTARVY) 50-200-25 MG TABLET PO SCH (08:55)
[2023-08-21] MEDS: AMOX TR/POT CLAV 875MG/125MG TABLETS (FP) PO SCH ×2 (08:55→17:06)
[2023-08-21] MEDS: SPIRONOLACTONE 25 MG TABLET PO SCH (09:18)
[2023-08-21] MEDS: FUROSEMIDE 20 MG TABLET (FP) PO SCH (09:18)
[2023-08-21] MEDS: FOLIC ACID 1 MG TABLET (FP) PO SCH (09:18)
[2023-08-21] MEDS: SENNOSIDES 8.6MG TABLET (FP) PO SCH (09:18)
[2023-08-21] MEDS: APIXABAN 5 MG TABLET PO SCH (09:18)
[2023-08-21] MEDS ORDERED: LIDOCAINE 4% PATCH TP SCH (10:00)
[2023-08-21] MEDS: oxyCODONE HCL 5 MG TABLET PO PRN (10:17)
[2023-08-21 11:02] VITALS: BP 112/75; PULSE 71; TEMP 98.5
[2023-08-21] MEDS ORDERED: GABAPENTIN 100 MG CAPSULE PO SCH (14:00)
[2023-08-21] MEDS ORDERED: LIDOCAINE PATCH REMOVAL MC SCH (22:00)
== END 2023-08-21 18:49 | DRG 552 ==
LOC: JER 11:58 → JERBED 20:05 → J6S 23:49
PROVIDERS: ADMIT Internal Medicine; ATTEND Internal Medicine
DX: M54.31 Sciatica, right side (principal); I50.22 Chronic systolic (congestive) heart failure; B20 Human immunodeficiency virus [HIV] disease; Z68.41 Body mass index [BMI] 40.0-44.9, adult; N39.0 Urinary tract infection, site not specified; I11.0 Hypertensive heart disease with heart failure; E78.5 Hyperlipidemia, unspecified; I48.91 Unspecified atrial fibrillation; I25.5 Ischemic cardiomyopathy; K57.90 Diverticulosis of intestine, part unspecified, without perforation or abscess without bleeding; Z96.651 Presence of right artificial knee joint; E66.8 Other obesity; B96.4 Proteus (mirabilis) (morganii) as the cause of diseases classified elsewhere; Z95.810 Presence of automatic (implantable) cardiac defibrillator
CPT/HCPCS: 36415; 70450-TC; 71045-TC-FY; 72131-TC; 76775-TC; 80048; 80053; 81003; 83880; 84484; 85025; 85610; 85730; 86850; 86900; 86901; 87086; 87186; 87635; 93005; 93010; 97116-GP; 99285-25

== ENCOUNTER 2023-11-05 00:03 | Inpatient (IN) | payer OTHER ==
[2023-11-05] MEDS ORDERED: FUROSEMIDE 40 MG/4 ML INJECTABLE VIAL IVPUSH ONE (01:27)
[2023-11-05 01:54] LABS: BASO % 0.8 % (0-2.0); EOS % 0.6 % (0-4.5); HEMATOCRIT 45.6 % (35.4-49); HEMOGLOBIN 14.7 GM/dL (11.7-16.9); LYMPH % 15.9 % (8-40); MCH 31.1 pg (25.7-33.7); MCHC 32.3 g/dl (32.0-35.9); MEAN CELL VOLUME 96.2 fl (80-96); MEAN PLT VOLUME 8.1 fl (7.5-11.1); MONO % 11.3 % (3.8-10.2); NEUT % 71.4 % (42.8-82.8); PLATELET COUNT 262 10^3/uL (134-434); RBC 4.74 M/mm3 (4.00-5.60); RDW 15.2 % (11.9-15.9)
[2023-11-05] MEDS ORDERED: FUROSEMIDE 40 MG/4 ML INJECTABLE VIAL ONE (02:07)
[2023-11-05 02:10] LABS: EPI CELLS 2 /uL (0-25.1); HYALINE CASTS 2 /uL (0-3.1); PH,URINE 6.5 (5.0-8.0); URINE APPEARANCE CLEAR; URINE BACTERIA 666 /uL (0-1359); URINE BILIRUBIN NEGATIVE (NEGATIVE); URINE COLOR YELLOW; URINE GLUCOSE (UA) NEGATIVE (NEGATIVE); URINE KETONE NEGATIVE (NEGATIVE); URINE LEUK ESTERASE 2+ (NEGATIVE); URINE NITRITE NEGATIVE (NEGATIVE); URINE PROTEIN 1+ (NEGATIVE); URINE RBC 31 /uL (0-23.9); URINE UROBILINOGEN 0.2 mg/dL (0.2-1.0); URINE WBC 420 /uL (0-25.8)
[2023-11-05 02:20] LABS: POTASSIUM 4.7 mmol/L (3.5-5.1)
[2023-11-05 02:23] LABS: ALBUMIN 2.8 g/dl (3.4-5.0); BLOOD UREA NITROGEN 29.7 mg/dL (7-18)
[2023-11-05 02:27] LABS: CREATININE 1.5 mg/dL (0.55-1.3)
[2023-11-05 02:28] LABS: BILIRUBIN,TOTAL 0.3 mg/dL (0.2-1); TOT PROT 7.5 g/dl (6.4-8.2)
[2023-11-05 02:30] LABS: N-TERMINAL BNP 1327.3 pg/ml (5-450)
[2023-11-05] MEDS ORDERED: DOCUSATE SODIUM 100 MG CAPSULE (FP) PO PRN (06:17)
[2023-11-05] MEDS ORDERED: ACETAMINOPHEN 1000 MG/100 ML BAG IVPB PRN (06:20)
[2023-11-05 07:42] VITALS: BMI 39.9
[2023-11-05] MEDS ORDERED: FUROSEMIDE 20 MG TABLET (FP) PO ONE (09:03)
[2023-11-05] MEDS ORDERED: POLYETHYLENE GLYCOL (HEALTHYLAX) 3350 17 GM PACKET PO PRN (09:07)
[2023-11-05] MEDS: SPIRONOLACTONE 25 MG TABLET PO SCH (09:44)
[2023-11-05] MEDS: FOLIC ACID 1 MG TABLET (FP) PO SCH (09:45)
[2023-11-05] MEDS: APIXABAN 5 MG TABLET PO SCH ×2 (11:07→21:44)
[2023-11-05] MEDS: FUROSEMIDE 40 MG/4 ML INJECTABLE VIAL IVPUSH SCH (14:37)
[2023-11-05] MEDS: SACUBITRIL/VALSARTAN 24 MG-26 MG TABLET PO SCH (21:44)
[2023-11-05] MEDS: SENNOSIDES 8.6MG TABLET (FP) PO SCH (21:44)
[2023-11-05] MEDS: ATORVASTATIN CA 10 MG TABLET (FP) PO SCH (21:44)
[2023-11-05] MEDS ORDERED: metoPROLOL SUCCINATE 25 MG TAB.SR.24H (FP) PO SCH (22:00)
[2023-11-06] MEDS: FUROSEMIDE 40 MG/4 ML INJECTABLE VIAL IVPUSH SCH ×2 (06:08→14:12)
[2023-11-06] MEDS ORDERED: ACETAMINOPHEN 325 MG TABLET (FP) PO PRN (06:17)
[2023-11-06 07:23] LABS: HEMATOCRIT 44.9 % (35.4-49); HEMOGLOBIN 14.6 GM/dL (11.7-16.9); MCH 31.6 pg (25.7-33.7); MCHC 32.4 g/dl (32.0-35.9); MEAN CELL VOLUME 97.5 fl (80-96); MEAN PLT VOLUME 8.4 fl (7.5-11.1); PLATELET COUNT 248 10^3/uL (134-434); RBC 4.61 M/mm3 (4.00-5.60); RDW 15.1 % (11.9-15.9); WHITE BLOOD COUNT 7.6 K/mm3 (4.0-10.0)
[2023-11-06 07:24] LABS: BASO % 0.4 % (0-2.0); EOS % 1.7 % (0-4.5); LYMPH % 24.8 % (8-40); MONO % 13.1 % (3.8-10.2)
[2023-11-06 07:29] LABS: INR 1.38 (0.83-1.09); PROTHROMBIN TIME (PATIENT) 15.9 SEC (9.7-13.0)
[2023-11-06 07:32] LABS: ACTIVATED PTT 24.8 SECONDS (25.2-36.5)
[2023-11-06 07:36] LABS: POTASSIUM 4.4 mmol/L (3.5-5.1)
[2023-11-06 07:49] LABS: CALCIUM 9.4 mg/dL (8.5-10.1)
[2023-11-06 07:51] LABS: BLOOD UREA NITROGEN 26.2 mg/dL (7-18)
[2023-11-06 07:54] LABS: CREATININE 1.3 mg/dL (0.55-1.3)
[2023-11-06] MEDS: BICTEGRAV/EMTRICIT/TENOFOV (BIKTARVY) 50-200-25 MG TABLET PO SCH (09:07)
[2023-11-06] MEDS: SACUBITRIL/VALSARTAN 24 MG-26 MG TABLET PO SCH ×2 (11:16→21:33)
[2023-11-06] MEDS: FOLIC ACID 1 MG TABLET (FP) PO SCH (11:16)
[2023-11-06] MEDS: SENNOSIDES 8.6MG TABLET (FP) PO SCH ×3 (11:16→21:33)
[2023-11-06] MEDS: APIXABAN 5 MG TABLET PO SCH ×2 (11:16→21:35)
[2023-11-06] MEDS: SPIRONOLACTONE 25 MG TABLET PO SCH (11:16)
[2023-11-06] MEDS: ATORVASTATIN CA 10 MG TABLET (FP) PO SCH (21:36)
[2023-11-07 03:58] VITALS: RESP 20
[2023-11-07] MEDS: FUROSEMIDE 40 MG/4 ML INJECTABLE VIAL IVPUSH SCH (06:03)
[2023-11-07 07:10] LABS: POTASSIUM 4.5 mmol/L (3.5-5.1)
[2023-11-07 07:17] LABS: BLOOD UREA NITROGEN 30.2 mg/dL (7-18); CALCIUM 9.1 mg/dL (8.5-10.1)
[2023-11-07 07:20] LABS: CREATININE 1.4 mg/dL (0.55-1.3)
[2023-11-07] MEDS: BICTEGRAV/EMTRICIT/TENOFOV (BIKTARVY) 50-200-25 MG TABLET PO SCH (08:55)
[2023-11-07 09:41] VITALS: BP 115/65; PULSE 83; TEMP 97.5
[2023-11-07] MEDS: FOLIC ACID 1 MG TABLET (FP) PO SCH (11:00)
[2023-11-07] MEDS: SACUBITRIL/VALSARTAN 24 MG-26 MG TABLET PO SCH (11:00)
[2023-11-07] MEDS: APIXABAN 5 MG TABLET PO SCH (11:00)
[2023-11-07] MEDS: SENNOSIDES 8.6MG TABLET (FP) PO SCH (11:00)
[2023-11-07] MEDS: SPIRONOLACTONE 25 MG TABLET PO SCH (11:01)
[2023-11-07] MEDS ORDERED: FUROSEMIDE 40 MG TABLET (FP) PO SCH (14:00)
== END 2023-11-07 13:51 | disposition home or self-care (01) | DRG 291 ==
LOC: JER 00:03 → JERBED 04:45 → INTOOBSV 04:45 → J4W 06:28 → OBSVTOIN 11-06 15:08
PROVIDERS: ADMIT Internal Medicine; ATTEND Internal Medicine
DX: I11.0 Hypertensive heart disease with heart failure (principal); I50.23 Acute on chronic systolic (congestive) heart failure; N39.0 Urinary tract infection, site not specified; I47.20 Ventricular tachycardia, unspecified; J44.9 Chronic obstructive pulmonary disease, unspecified; E78.5 Hyperlipidemia, unspecified; Z21 Asymptomatic human immunodeficiency virus [HIV] infection status; B96.4 Proteus (mirabilis) (morganii) as the cause of diseases classified elsewhere; I48.91 Unspecified atrial fibrillation; K57.90 Diverticulosis of intestine, part unspecified, without perforation or abscess without bleeding; Z87.442 Personal history of urinary calculi; I42.8 Other cardiomyopathies; I34.0 Nonrheumatic mitral (valve) insufficiency; Z95.810 Presence of automatic (implantable) cardiac defibrillator
CPT/HCPCS: 0241U-QW; 36415; 71045-TC-FY; 73562-TC-LT-FY; 80048; 80053; 81003; 83735; 83880; 84484; 85025; 85610; 85730; 87086; 87186; 93005; 93010; 93306-TC; 93971-TC; 97116-GP; 97161-GP; 99285-25; G0378

== ENCOUNTER 2024-12-24 23:36 | Inpatient (IN) | payer OTHER ==
[2024-12-25 00:45] LABS: BASO % 0.4 % (0-2.0); EOS % 0.7 % (0-4.5); HEMATOCRIT 41.1 % (35.4-49); HEMOGLOBIN 13.4 GM/dL (11.7-16.9); LYMPH % 11.8 % (8-40); MCHC 32.7 g/dl (32.0-35.9); MEAN CELL VOLUME 100.9 fl (80-96); MEAN PLT VOLUME 8.1 fl (7.5-11.1); MONO % 10.9 % (3.8-10.2); NEUT % 76.2 % (42.8-82.8); PLATELET COUNT 239 10^3/uL (134-434); RBC 4.07 M/mm3 (4.00-5.60); WHITE BLOOD COUNT 8.5 K/mm3 (4.0-10.0)
[2024-12-25 01:08] LABS: POTASSIUM 4.4 mmol/L (3.5-5.1)
[2024-12-25 01:10] LABS: ALBUMIN 2.7 g/dl (3.4-5.0); BLOOD UREA NITROGEN 29.7 mg/dL (7-18); CALCIUM 8.6 mg/dL (8.5-10.1)
[2024-12-25 01:13] LABS: CREATININE 1.5 mg/dL (0.55-1.3)
[2024-12-25 01:15] LABS: BILIRUBIN,TOTAL 0.2 mg/dL (0.2-1); TOT PROT 6.8 g/dl (6.4-8.2)
[2024-12-25 02:58] LABS: INR 1.13 (0.83-1.09); PROTHROMBIN TIME (PATIENT) 12.4 SEC (9.7-13.0)
[2024-12-25] MEDS ORDERED: FUROSEMIDE 40 MG/4 ML INJECTABLE VIAL ONE (04:28)
[2024-12-25] MEDS: FUROSEMIDE 40 MG/4 ML INJECTABLE VIAL IVPUSH ONE (04:33)
[2024-12-25 06:08] LABS: BASO % 0.5 % (0-2.0); EOS % 0.5 % (0-4.5); HEMATOCRIT 44.6 % (35.4-49); HEMOGLOBIN 14.4 GM/dL (11.7-16.9); LYMPH % 13.3 % (8-40); MCH 33.1 pg (25.7-33.7); MCHC 32.4 g/dl (32.0-35.9); MEAN CELL VOLUME 102.1 fl (80-96); MEAN PLT VOLUME 8.2 fl (7.5-11.1); NEUT % 76.7 % (42.8-82.8); PLATELET COUNT 262 10^3/uL (134-434); RBC 4.37 M/mm3 (4.00-5.60); RDW 13.8 % (11.9-15.9); WHITE BLOOD COUNT 10.5 K/mm3 (4.0-10.0)
[2024-12-25 06:16] LABS: POTASSIUM 4.3 mmol/L (3.5-5.1)
[2024-12-25 06:18] LABS: BLOOD UREA NITROGEN 26.5 mg/dL (7-18); CALCIUM 8.8 mg/dL (8.5-10.1)
[2024-12-25 06:19] LABS: MAGNESIUM 2.4 mg/dL (1.8-2.4)
[2024-12-25 06:21] VITALS: BMI 40.5
[2024-12-25 06:21] LABS: PHOSPHOROUS 3.3 mg/dL (2.5-4.9)
[2024-12-25 06:22] LABS: CREATININE 1.5 mg/dL (0.55-1.3)
[2024-12-25 06:23] LABS: BILIRUBIN,TOTAL 0.4 mg/dL (0.2-1); TOT PROT 7.6 g/dl (6.4-8.2)
[2024-12-25 06:27] LABS: N-TERMINAL BNP 2288.4 pg/ml (5-450)
[2024-12-25] MEDS: PANTOPRAZOLE SODIUM 40 MG VIAL IVPUSH ONE (06:45)
[2024-12-25] MEDS: METOPROLOL TARTRATE 25 MG TABLET (FP) PO SCH ×2 (09:32→21:37)
[2024-12-25] MEDS: PANTOPRAZOLE SODIUM 40 MG VIAL IVPUSH SCH ×2 (09:33→21:38)
[2024-12-25] MEDS: FUROSEMIDE 40 MG/4 ML INJECTABLE VIAL IVPUSH SCH (09:37)
[2024-12-25] MEDS ORDERED: PANTOPRAZOLE SODIUM 40 MG VIAL IVPUSH SCH (10:00)
[2024-12-25] MEDS ORDERED: APIXABAN 5 MG TABLET PO SCH (10:00)
[2024-12-25] MEDS: BICTEGRAV/EMTRICIT/TENOFOV (BIKTARVY) 50-200-25 MG TABLET PO SCH (10:56)
[2024-12-25 12:42] LABS: BASO % 0.7 % (0-2.0); EOS % 0.8 % (0-4.5); HEMATOCRIT 41.9 % (35.4-49); HEMOGLOBIN 13.7 GM/dL (11.7-16.9); LYMPH % 12.7 % (8-40); MCH 32.8 pg (25.7-33.7); MCHC 32.7 g/dl (32.0-35.9); MEAN CELL VOLUME 100.3 fl (80-96); MEAN PLT VOLUME 8.6 fl (7.5-11.1); MONO % 10.2 % (3.8-10.2); NEUT % 75.6 % (42.8-82.8); PLATELET COUNT 262 10^3/uL (134-434); RBC 4.18 M/mm3 (4.00-5.60); RDW 13.9 % (11.9-15.9); WHITE BLOOD COUNT 10.6 K/mm3 (4.0-10.0)
[2024-12-25] MEDS: SPIRONOLACTONE 25 MG TABLET PO SCH (16:15)
[2024-12-25] MEDS: PATIENT'S OWN MEDICATION (NON-FORMULARY) (Dapagliflozin Propanediol 10 MG Tablet) PO SCH (17:41)
[2024-12-25 19:54] LABS: BASO % 0.4 % (0-2.0); EOS % 1.2 % (0-4.5); HEMATOCRIT 42.7 % (35.4-49); HEMOGLOBIN 13.9 GM/dL (11.7-16.9); LYMPH % 14.2 % (8-40); MCH 33.1 pg (25.7-33.7); MCHC 32.5 g/dl (32.0-35.9); MEAN CELL VOLUME 101.9 fl (80-96); MEAN PLT VOLUME 8.5 fl (7.5-11.1); MONO % 7.8 % (3.8-10.2); NEUT % 76.4 % (42.8-82.8); PLATELET COUNT 256 10^3/uL (134-434); RBC 4.19 M/mm3 (4.00-5.60); RDW 14.1 % (11.9-15.9); WHITE BLOOD COUNT 8.1 K/mm3 (4.0-10.0)
[2024-12-25 20:17] LABS: POTASSIUM 4.7 mmol/L (3.5-5.1)
[2024-12-25 20:19] LABS: CALCIUM 8.7 mg/dL (8.5-10.1)
[2024-12-25 20:20] LABS: ALBUMIN 2.8 g/dl (3.4-5.0); BLOOD UREA NITROGEN 25.6 mg/dL (7-18); MAGNESIUM 2.3 mg/dL (1.8-2.4)
[2024-12-25 20:23] LABS: CREATININE 1.6 mg/dL (0.55-1.3)
[2024-12-25 20:24] LABS: BILIRUBIN,TOTAL 0.4 mg/dL (0.2-1)
[2024-12-25 20:25] LABS: TOT PROT 7.2 g/dl (6.4-8.2)
[2024-12-25] MEDS: ATORVASTATIN CA 10 MG TABLET (FP) PO SCH (21:38)
[2024-12-25] MEDS ORDERED: ATORVASTATIN CA 10 MG TABLET (FP) PO SCH (22:00)
[2024-12-26] MEDS: ACETAMINOPHEN 1000 MG/100 ML BAG IVPB ONE (03:02)
[2024-12-26] MEDS: BICTEGRAV/EMTRICIT/TENOFOV (BIKTARVY) 50-200-25 MG TABLET PO SCH (09:54)
[2024-12-26] MEDS: FUROSEMIDE 40 MG/4 ML INJECTABLE VIAL IVPUSH SCH (09:55)
[2024-12-26] MEDS: SPIRONOLACTONE 25 MG TABLET PO SCH (09:55)
[2024-12-26] MEDS ORDERED: PATIENT'S OWN MEDICATION (NON-FORMULARY) (Simvastatin [Simvastatin] 20 MG) PO SCH (10:00)
[2024-12-26] MEDS: POLYETHYLENE GLYCOL (HEALTHYLAX) 3350 17 GM PACKET PO SCH (11:10)
[2024-12-26 16:19] LABS: BASO % 0.4 % (0-2.0); EOS % 1.5 % (0-4.5); HEMATOCRIT 41.2 % (35.4-49); HEMOGLOBIN 13.4 GM/dL (11.7-16.9); LYMPH % 18.3 % (8-40); MCH 32.8 pg (25.7-33.7); MCHC 32.5 g/dl (32.0-35.9); MEAN CELL VOLUME 100.9 fl (80-96); MEAN PLT VOLUME 8.7 fl (7.5-11.1); MONO % 11.4 % (3.8-10.2); NEUT % 68.4 % (42.8-82.8); PLATELET COUNT 208 10^3/uL (134-434); RBC 4.08 M/mm3 (4.00-5.60); WHITE BLOOD COUNT 8.3 K/mm3 (4.0-10.0)
[2024-12-26 17:43] LABS: POTASSIUM 4.8 mmol/L (3.5-5.1)
[2024-12-26 17:46] LABS: CALCIUM 8.5 mg/dL (8.5-10.1)
[2024-12-26 17:47] LABS: ALBUMIN 2.8 g/dl (3.4-5.0); BLOOD UREA NITROGEN 26.2 mg/dL (7-18); MAGNESIUM 2.3 mg/dL (1.8-2.4)
[2024-12-26 17:50] LABS: CREATININE 1.5 mg/dL (0.55-1.3)
[2024-12-26 17:52] LABS: BILIRUBIN,TOTAL 0.3 mg/dL (0.2-1)
[2024-12-26] MEDS: ACETAMINOPHEN 325 MG TABLET (FP) PO PRN (22:33)
[2024-12-27] MEDS: EMPAGLIFLOZIN (JARDIANCE) 10 MG TABLET PO SCH (11:39)
[2024-12-27 16:50] LABS: BASO % 0.5 % (0-2.0); EOS % 1.3 % (0-4.5); HEMATOCRIT 39.5 % (35.4-49); LYMPH % 15.2 % (8-40); MCH 33.1 pg (25.7-33.7); MCHC 32.8 g/dl (32.0-35.9); MEAN CELL VOLUME 100.9 fl (80-96); MEAN PLT VOLUME 8.4 fl (7.5-11.1); MONO % 10.3 % (3.8-10.2); NEUT % 72.7 % (42.8-82.8); PLATELET COUNT 236 10^3/uL (134-434); RBC 3.92 M/mm3 (4.00-5.60); RDW 14.1 % (11.9-15.9); WHITE BLOOD COUNT 7.9 K/mm3 (4.0-10.0)
[2024-12-27 17:28] LABS: POTASSIUM 4.9 mmol/L (3.5-5.1)
[2024-12-27 17:29] LABS: ALBUMIN 2.8 g/dl (3.4-5.0); BLOOD UREA NITROGEN 25.6 mg/dL (7-18); CALCIUM 8.6 mg/dL (8.5-10.1)
[2024-12-27 17:31] LABS: MAGNESIUM 2.4 mg/dL (1.8-2.4)
[2024-12-27 17:34] LABS: CREATININE 1.5 mg/dL (0.55-1.3)
[2024-12-27 17:35] LABS: BILIRUBIN,TOTAL 0.3 mg/dL (0.2-1)
[2024-12-27 17:36] LABS: TOT PROT 6.8 g/dl (6.4-8.2)
[2024-12-28 09:03] LABS: HEMATOCRIT 41.6 % (35.4-49); HEMOGLOBIN 13.6 GM/dL (11.7-16.9); MCH 33.2 pg (25.7-33.7); MCHC 32.6 g/dl (32.0-35.9); MEAN CELL VOLUME 101.6 fl (80-96); MEAN PLT VOLUME 8.6 fl (7.5-11.1); PLATELET COUNT 261 10^3/uL (134-434); RBC 4.09 M/mm3 (4.00-5.60); RDW 13.9 % (11.9-15.9); WHITE BLOOD COUNT 7.4 K/mm3 (4.0-10.0)
[2024-12-28 09:36] LABS: BLOOD UREA NITROGEN 26.8 mg/dL (7-18)
[2024-12-28 09:39] LABS: CREATININE 1.5 mg/dL (0.55-1.3)
[2024-12-28 09:40] LABS: BILIRUBIN,TOTAL 0.7 mg/dL (0.2-1)
[2024-12-28 09:41] LABS: TOT PROT 7.5 g/dl (6.4-8.2)
[2024-12-28 09:44] LABS: POTASSIUM 5.1 mmol/L (3.5-5.1)
[2024-12-28 10:12] LABS: ALBUMIN 2.9 g/dl (3.4-5.0); CALCIUM 9.1 mg/dL (8.5-10.1)
[2024-12-28 10:13] LABS: BLOOD UREA NITROGEN 26.4 mg/dL (7-18); MAGNESIUM 2.4 mg/dL (1.8-2.4)
[2024-12-28 10:15] LABS: BILIRUBIN,TOTAL 0.6 mg/dL (0.2-1); CREATININE 1.5 mg/dL (0.55-1.3); PHOSPHOROUS 3.7 mg/dL (2.5-4.9)
[2024-12-28 10:17] LABS: TOT PROT 7.2 g/dl (6.4-8.2)
[2024-12-29 18:02] LABS: BASO % 0.6 % (0-2.0); EOS % 1.2 % (0-4.5); HEMATOCRIT 43.5 % (35.4-49); HEMOGLOBIN 14.1 GM/dL (11.7-16.9); LYMPH % 16.5 % (8-40); MCH 32.8 pg (25.7-33.7); MCHC 32.5 g/dl (32.0-35.9); MEAN CELL VOLUME 100.9 fl (80-96); MONO % 10.2 % (3.8-10.2); NEUT % 71.5 % (42.8-82.8); PLATELET COUNT 278 10^3/uL (134-434); RBC 4.31 M/mm3 (4.00-5.60); RDW 13.9 % (11.9-15.9); WHITE BLOOD COUNT 8.8 K/mm3 (4.0-10.0)
[2024-12-30] MEDS: EMPAGLIFLOZIN (JARDIANCE) 10 MG TABLET PO SCH (06:19)
[2025-01-01 06:44] VITALS: RESP 18
[2025-01-01 14:51] VITALS: BP 118/62; PULSE 77; TEMP 98.6
== END 2025-01-01 18:00 | disposition home health service (06) | DRG 291 ==
LOC: JER 23:36 → JERBED 12-25 02:48 → OBSVTOIN 12-25 04:59 → J4W 12-25 06:15 → J7W 12-25 17:18
PROVIDERS: ADMIT Internal Medicine
DX: I11.0 Hypertensive heart disease with heart failure (principal); I50.23 Acute on chronic systolic (congestive) heart failure; N17.9 Acute kidney failure, unspecified; K92.1 Melena; E78.5 Hyperlipidemia, unspecified; I42.8 Other cardiomyopathies; I48.91 Unspecified atrial fibrillation; K59.00 Constipation, unspecified; Z21 Asymptomatic human immunodeficiency virus [HIV] infection status; I08.1 Rheumatic disorders of both mitral and tricuspid valves; I25.10 Atherosclerotic heart disease of native coronary artery without angina pectoris; K57.90 Diverticulosis of intestine, part unspecified, without perforation or abscess without bleeding; Z95.810 Presence of automatic (implantable) cardiac defibrillator
CPT/HCPCS: 0241U-QW; 36415; 71045-TC-FY; 80053; 82272; 83735; 83880; 84100; 84484; 85025; 85027; 85610; 86850; 86900; 86901; 93005; 93010; 93306-TC; 93970-TC; 97116-GP; 99285-25; G0378; J0131